=== PATIENT | female | born 2000 | race Hispanic/Latino ===

== ENCOUNTER 2022-01-26 14:15 | Emergency (ER) | payer OTHER ==
--- OUTSIDE RECORDS SUMMARY | 2022-01-26 14:19 | XMS REPORT | Continuity of Care Document ---
:2000 Author Organization [facility] t Address [address] [place] [address] Care Team Providers Name Role Phone Emerson Rubio Primary Care Physician [phone] Problems This patient has no known problems. Allergies, Adverse Reactions, Alerts Allergy Allergy Status Severity Reaction(s) Onset Inactive Treating Comm ents Source Name Type Date Date Clinician Mesna - Propensi Active Intraven ty to 7-11 ous adverse 00:00: reaction 00 to drug Medications Ordered Filled Start Stop Current Ordering Indication Dosage Frequency Signature Comments Components Source Medication Medication Date Date Medication? Clinician (SIG) Name Name CETIRIZINE No HYDROCHLORI 8-23 DE 10 MG 00:00: TABS 00 INHALE 1 TO 0 No 2 PUFFS BY 8-12 MOUTH EVERY 00:00: 4 TO 6 00 HOURS NEEDED DIRECTED TAKE 1 2021-0 No 10 TABLET BY 7-23 MOUTH EVERY 00:00: DAY 00 TAKE 1 2021-0 No 20 CAPSULE BY 7-18 MOUTH EVERY 00:00: DAY IN THE 00 MORNING Dose 2021-0 No Unknown 7-14 00:00: 00 &lt 2021-0 No 7-14 00:00: 00 TAKE 1 2021-0 No 20 TABLET BY 7-14 MOUTH THREE 00:00: TIMES A DAY 00 NEEDED FOR PAIN Dose 2021-0 No Unknown 7-14 00:00: 00 &lt 2021-0 No 7-14 00:00: 00 TAKE 1 2021-0 No 20 TABLET BY 7-14 MOUTH THREE 00:00: TIMES A DAY 00 NEEDED FOR PAIN TAKE 1 2021-0 No 20 TABLET BY 7-11 MOUTH THREE 00:00: TIMES A DAY 00 NEEDED FOR PAIN &lt 2021-0 No 7-11 00:00: 00 TAKE 1 2022-0 No 20 CAPSULE BY 7-11 MOUTH EVERY 00:00: DAY IN THE 00 MORNING TAKE 1 2022-0 No 10 TABLET BY 7-11 MOUTH EVERY 00:00: DAY 00 TAKE 1 2022-0 No 10 TABLET BY 7-11 MOUTH EVERY 00:00: DAY 00 Dose 2022-0 No Unknown 7 00:00: 00 TAKE 1 2022-0 No 20 CAPSULE BY 7-11 MOUTH EVERY 00:00: DAY IN THE 00 MORNING TAKE 1 2022-0 No 20 TABLET BY 7-11 MOUTH THREE 00:00: TIMES A DAY 00 NEEDED FOR PAIN &lt 2022-0 No 7-11 00:00: 00 TAKE 1 2022-0 No 20 CAPSULE BY 7-11 MOUTH EVERY 00:00: DAY IN THE 00 MORNING TAKE 1 2-0 No 10 TABLET BY 7-11 MOUTH EVERY 00:00: DAY 00 TAKE 1 2-0 No 10 TABLET BY 7-11 MOUTH EVERY 00:00: DAY 00 Dose 2022-0 No Unknown 7-11 00:00: 00 TAKE 1 2-0 No 20 CAPSULE BY 7-11 MOUTH EVERY 00:00: DAY IN THE 00 MORNING &lt 2022-0 No 6-21 00:00: 00 &lt 2022-0 No 6-21 00:00: 00 Dose 2022-0 No Unknown 4-12 00:00: 00 Dose 2022-0 No Unknown 4-12 00:00: 00 Dose 2022-0 No Unknown 4-12 00:00: 00 Dose 2022-0 No Unknown 4-12 00:00: 00 hydroxyzine 2022-0 No 1mg HCl 25 mg 4-11 tablet 00:00: 00 Dose 2022-0 No Unknown 4-11 00:00: 00 Dose 2022-0 No Unknown 4-11 00:00: 00 Dose 2022-0 No Unknown 4-11 00:00: 00 Dose 2022-0 No Unknown 4-11 00:00: 00 Dose 2022-0 No Unknown 4-11 00:00: 00 hydroxyzine 2022-0 No 1mg HCl 25 mg 4-11 tablet 00:00: 00 Dose 2022-0 No Unknown 4-11 00:00: 00 Dose 2022-0 No Unknown 4-11 00:00: 00 Dose 2022-0 No Unknown 4-11 00:00: 00 Dose 2022-0 No Unknown 4-11 00:00: 00 Dose 2022-0 No Unknown 4-11 00:00: 00 cetirizine 2022-0 No 1mg 10 mg 4-08 capsule 00:00: 00 cetirizine 2022-0 No 1mg 10 mg 4-08 capsule 00:00: 00 Dose 2022-0 No Unknown 3-10 00:00: 00 Dose 2022-0 No Unknown 3-10 00:00: 00 Dose 2022-0 No Unknown 3-10 00:00: 00 Dose 2022-0 No Unknown 3-10 00:00: 00 Dose 2022-0 No Unknown 3-09 00:00: 00 Dose 2022-0 No Unknown 3-09 00:00: 00 Dose 2022-0 No Unknown 3-09 00:00: 00 Dose 2022-0 No Unknown 3-09 00:00: 00 Dose 2022-0 No Unknown 3-09 00:00: 00 Dose 2022-0 No Unknown 3-09 00:00: 00 Dose 2022-0 No Unknown 3-09 00:00: 00 Dose 2022-0 No Unknown 3-09 00:00: 00 Dose 2022-0 No Unknown 3-09 00:00: 00 dicyclomine 2-0 No 1mg 20 mg 3-09 tablet 00:00: 00 Dose 2022-0 No Unknown 3-09 00:00: 00 Dose 2022-0 No Unknown 3-09 00:00: 00 Dose 2022-0 No Unknown 3-09 00:00: 00 Dose 2022-0 No Unknown 3-09 00:00: 00 Dose 2022-0 No Unknown 3-09 00:00: 00 Dose 2022-0 No Unknown 3-09 00:00: 00 Dose 2022-0 No Unknown 3-09 00:00: 00 Dose 2022-0 No Unknown 3-09 00:00: 00 Dose 2022-0 No Unknown 3-09 00:00: 00 Dose 2022-0 No Unknown 3-09 00:00: 00 Dose 2022-0 No Unknown 3-09 00:00: 00 Dose 2022-0 No Unknown 3-09 00:00: 00 Dose 2022-0 No Unknown 3-09 00:00: 00 Dose 2022-0 No Unknown 3-09 00:00: 00 Dose 2022-0 No Unknown 3-09 00:00: 00 Dose 2022-0 No Unknown 3-09 00:00: 00 Dose 2022-0 No Unknown 3-09 00:00: 00 Dose 2022-0 No Unknown 3-09 00:00: 00 Dose 2022-0 No Unknown 3-09 00:00: 00 Dose 2022-0 No Unknown 3-09 00:00: 00 Dose 2022-0 No Unknown 3-09 00:00: 00 Dose 2022-0 No Unknown 3-09 00:00: 00 Dose 2022-0 No Unknown 3-09 00:00: 00 Dose 2022-0 No Unknown 3-09 00:00: 00 Dose 2022-0 No Unknown 3-09 00:00: 00 Dose 2022-0 No Unknown 3-09 00:00: 00 Dose 2022-0 No Unknown 3-09 00:00: 00 Dose 2022-0 No Unknown 3-09 00:00: 00 Dose 2022-0 No Unknown 3-09 00:00: 00 Dose 2022-0 No Unknown 3-09 00:00: 00 Dose 2022-0 No Unknown 3-09 00:00: 00 Dose 2022-0 No Unknown 3-09 00:00: 00 Dose 2022-0 No Unknown 3-09 00:00: 00 Dose 2022-0 No Unknown 3-09 00:00: 00 Dose 2022-0 No Unknown 3-09 00:00: 00 Dose 2022-0 No Unknown 3-09 00:00: 00 Dose 2022-0 No Unknown 3-09 00:00: 00 Dose 2022-0 No Unknown 3-09 00:00: 00 Dose 2022-0 No Unknown 3-09 00:00: 00 Dose 2022-0 No Unknown 3-09 00:00: 00 Dose 2022-0 No Unknown 3-09 00:00: 00 Dose 2022-0 No Unknown 3-09 00:00: 00 Dose 2022-0 No Unknown 3-09 00:00: 00 Dose 2022-0 No Unknown 3-09 00:00: 00 Dose 2022-0 No Unknown 3-09 00:00: 00 Dose 2022-0 No Unknown 3-09 00:00: 00 Dose 2022-0 No Unknown 3-09 00:00: 00 Dose 2022-0 No Unknown 3-09 00:00: 00 Dose 2022-0 No Unknown 3-09 00:00: 00 Dose 2022-0 No Unknown 3-09 00:00: 00 Dose 2022-0 No Unknown 3-09 00:00: 00 Dose 2022-0 No Unknown 3-09 00:00: 00 Dose 2022-0 No Unknown 3-09 00:00: 00 Dose 2022-0 No Unknown 3-09 00:00: 00 Dose 2022-0 No Unknown 3-09 00:00: 00 Dose 2022-0 No Unknown 3-09 00:00: 00 Dose 2022-0 No Unknown 3-09 00:00: 00 Dose 2022-0 No Unknown 3-09 00:00: 00 Dose 2022-0 No Unknown 3-09 00:00: 00 Dose 2022-0 No Unknown 3-09 00:00: 00 Dose 2022-0 No Unknown 3-09 00:00: 00 Dose 2022-0 No Unknown 3-09 00:00: 00 Dose 2022-0 No Unknown 3-09 00:00: 00 Dose 2022-0 No Unknown 3-09 00:00: 00 Dose 2022-0 No Unknown 3-09 00:00: 00 Dose 2022-0 No Unknown 3-09 00:00: 00 Dose 2022-0 No Unknown 3-09 00:00: 00 Dose 2022-0 No Unknown 3-09 00:00: 00 Dose 2022-0 No Unknown 3-09 00:00: 00 Dose 2022-0 No Unknown 3-09 00:00: 00 Dose 2022-0 No Unknown 3-09 00:00: 00 Dose 2022-0 No Unknown 3-09 00:00: 00 Dose 2022-0 No Unknown 3-09 00:00: 00 Dose 2022-0 No Unknown 3-09 00:00: 00 Dose 2022-0 No Unknown 3-09 00:00: 00 Dose 2022-0 No Unknown 3-09 00:00: 00 Dose 2022-0 No Unknown 3-09 00:00: 00 Dose 2022-0 No Unknown 3-09 00:00: 00 Dose 2022-0 No Unknown 3-09 00:00: 00 Dose 2022-0 No Unknown 3-09 00:00: 00 Dose 2022-0 No Unknown 3-09 00:00: 00 Dose 2022-0 No Unknown 3-09 00:00: 00 Dose 2022-0 No Unknown 3-09 00:00: 00 Dose 2022-0 No Unknown 3-09 00:00: 00 Dose 2022-0 No Unknown 3-09 00:00: 00 Dose 2022-0 No Unknown 3-09 00:00: 00 Dose 2022-0 No Unknown 3-09 00:00: 00 Dose 2022-0 No Unknown 3-09 00:00: 00 Dose 2022-0 No Unknown 3-09 00:00: 00 Dose 2022-0 No Unknown 3-09 00:00: 00 Dose 2022-0 No Unknown 3-09 00:00: 00 Dose 2022-0 No Unknown 3-09 00:00: 00 Dose 2022-0 No Unknown 3-09 00:00: 00 Dose 2022-0 No Unknown 3-09 00:00: 00 Dose 2022-0 No Unknown 3-09 00:00: 00 Dose 2022-0 No Unknown 3-09 00:00: 00 Dose 2022-0 No Unknown 3-09 00:00: 00 Dose 2022-0 No Unknown 3-09 00:00: 00 Dose 2022-0 No Unknown 3-09 00:00: 00 Dose 2022-0 No Unknown 3-09 00:00: 00 Dose 2022-0 No Unknown 3-09 00:00: 00 Dose 2022-0 No Unknown 3-09 00:00: 00 Dose 2022-0 No Unknown 3-09 00:00: 00 Dose 2022-0 No Unknown 3-09 00:00: 00 Dose 2022-0 No Unknown 3-09 00:00: 00 Dose 2022-0 No Unknown 3-09 00:00: 00 Dose 2022-0 No Unknown 3-09 00:00: 00 Dose 2022-0 No Unknown 3-09 00:00: 00 Dose 2022-0 No Unknown 3-09 00:00: 00 Dose 2022-0 No Unknown 3-09 00:00: 00 Dose 2022-0 No Unknown 3-09 00:00: 00 Dose 2022-0 No Unknown 3-09 00:00: 00 Dose 2022-0 No Unknown 3-09 00:00: 00 Dose 2022-0 No Unknown 3-09 00:00: 00 Dose 2022-0 No Unknown 3-09 00:00: 00 Dose 2022-0 No Unknown 3-09 00:00: 00 Dose 2022-0 No Unknown 3-09 00:00: 00 Dose 2022-0 No Unknown 3-09 00:00: 00 Dose 2022-0 No Unknown 3-09 00:00: 00 Dose 2022-0 No Unknown 3-09 00:00: 00 Dose 2022-0 No Unknown 3-09 00:00: 00 Dose 2022-0 No Unknown 3-09 00:00: 00 Dose 2022-0 No Unknown 3-09 00:00: 00 Dose 2022-0 No Unknown 3-09 00:00: 00 Dose 2022-0 No Unknown 3-09 00:00: 00 Dose 2-0 No Unknown 3-09 00:00: 00 Dose 2-0 No Unknown 3-09 00:00: 00 dicyclomine 2-0 No 1mg 20 mg 3-09 tablet 00:00: 00 Lexapro 10 2-0 No 1mg mg tablet 2-21 00:00: 00 Dose 2-0 No Unknown 2-21 00:00: 00 Lexapro 10 2-0 No 1mg mg tablet 2-21 00:00: 00 Dose 2-0 No Unknown 2-21 00:00: 00 Flonase 2-0 No 2mcg/ac Allergy 2-07 tuation Relief 50 00:00: mcg/actuati 00 on nasal spray,suspe nsion cetirizine 2021-0 No 1mg 10 mg 2-07 capsule 00:00: 00 cetirizine 2-0 No 1mg 10 mg 2-07 capsule 00:00: 00 Flonase 2022-0 No 2mcg/ac Allergy 2-07 tuation Relief 50 00:00: mcg/actuati 00 on nasal spray,suspe nsion cetirizine 2-0 No 1mg 10 mg 2-07 capsule 00:00: 00 cetirizine 2022-0 No 1mg 10 mg 2-07 capsule 00:00: 00 Immunizations Ordered Immunization Filled Immunization Date Status Commen ts Source Name Name Pfizer COVID-19 Vaccine 2021-03-23 Completed 00:00:00 Pfizer COVID-19 Vaccine 2021-03-23 Completed 00:00:00 Vital Signs Vital Name Observation Time Observation Value Comments Source BP Systolic 2022-01-24 15:50:00 105 mm[Hg] BP Diastolic 2022-01-24 15:50:00 74 mm[Hg] Weight Measured 2022-01-24 15:50:00 244.60 pounds Height Measured 2022-01-24 15:50:00 69.00 inches Body Temperature 2022-01-24 15:50:00 Heart Rate 2022-01-24 15:50:00 85.00 /min Respiratory Rate 2022-01-24 15:50:00 18.00 /min BP Systolic 2021-09-22 17:24:00 118 mm[Hg] BP Diastolic 2021-09-22 17:24:00 80 mm[Hg] Weight Measured 2021-09-22 17:24:00 249.20 pounds Height Measured 2021-09-22 17:24:00 69.00 inches Body Temperature 2021-09-22 17:24:00 98.40 degrees Heart Rate 2021-09-22 17:24:00 77.00 /min Respiratory Rate 2021-09-22 17:24:00 19.00 /min BP Systolic 2021-07-04 13:39:00 117 mm[Hg] BP Diastolic 2021-07-04 13:39:00 80 mm[Hg] Weight Measured 2021-07-04 13:39:00 253.00 pounds Height Measured 2021-07-04 13:39:00 69.00 inches Body Temperature 2021-07-04 13:39:00 98.00 degrees Heart Rate 2021-07-04 13:39:00 75.00 /min Respiratory Rate 2021-07-04 13:39:00 16.00 /min BP Systolic 2021-06-20 14:31:00 125 mm[Hg] BP Diastolic 2021-06-20 14:31:00 79 mm[Hg] Weight Measured 2021-06-20 14:31:00 251.60 pounds Height Measured 2021-06-20 14:31:00 69.00 inches Body Temperature 2021-06-20 14:31:00 98.50 degrees Heart Rate 2021-06-20 14:31:00 101.00 /min Respiratory Rate 2021-06-20 14:31:00 21.00 /min BP Systolic 2021-05-18 15:33:00 113 mm[Hg] BP Diastolic 2021-05-18 15:33:00 72 mm[Hg] Weight Measured 2021-05-18 15:33:00 251.80 pounds Height Measured 2021-05-18 15:33:00 69.00 inches Body Temperature 2021-05-18 15:33:00 97.40 degrees Heart Rate 2021-05-18 15:33:00 91.00 /min Respiratory Rate 2021-05-18 15:33:00 BP Systolic 2021-05-02 17:23:00 134 mm[Hg] BP Diastolic 2021-05-02 17:23:00 86 mm[Hg] Weight Measured 2021-05-02 17:23:00 251.20 pounds Height Measured 2021-05-02 17:23:00 69.00 inches Body Temperature 2021-05-02 17:23:00 98.50 degrees Heart Rate 2021-05-02 17:23:00 104.00 /min Respiratory Rate 2021-05-02 17:23:00 BP Systolic 2021-04-18 17:37:00 BP Diastolic 2021-04-18 17:37:00 Weight Measured 2021-04-18 17:37:00 256.00 pounds Height Measured 2021-04-18 17:37:00 Body Temperature 2021-04-18 17:37:00 Heart Rate 2021-04-18 17:37:00 Respiratory Rate 2021-04-18 17:37:00 BP Systolic 2021-03-23 13:34:00 113 mm[Hg] BP Diastolic 2021-03-23 13:34:00 77 mm[Hg] Weight Measured 2021-03-23 13:34:00 255.60 pounds Height Measured 2021-03-23 13:34:00 69.00 inches Body Temperature 2021-03-23 13:34:00 98.40 degrees Heart Rate 2021-03-23 13:34:00 88.00 /min Respiratory Rate 2021-03-23 13:34:00 Procedures This patient has no known procedures. Plan of Care Planned Activity Planned Date Details Comments Source Goal Plan of Care Note [code = 67728-5] Goal Plan of Care Note [code = 53815-0] Goal Plan of Care Note [code = 94525-4] Goal Plan of Care Note [code = 62636-6] Goal Plan of Care Note [code = 71041-1] Goal Plan of Care Note [code = 33531-0] Goal Plan of Care Note [code = 28651-9] Goal Plan of Care Note [code = 09221-3] Goal Plan of Care Note [code = 56793-1] Goal Plan of Care Note [code = 03852-5] Goal Plan of Care Note [code = 41030-4] Goal Plan of Care Note [code = 26641-9] Goal Plan of Care Note [code = 17458-3] Goal Plan of Care Note [code = 79229-7] Goal Plan of Care Note [code = 18716-8] Goal Plan of Care Note [code = 67925-8] Goal Plan of Care Note [code = 64375-8] Goal Plan of Care Note [code = 96363-5] Goal Plan of Care Note [code = 73024-6] Goal Plan of Care Note [code = 96985-9] Goal Plan of Care Note [code = 10675-9] Goal Plan of Care Note [code = 29228-7] Goal Plan of Care Note [code = 01692-9] Goal Plan of Care Note [code = 50947-0] Goal Plan of Care Note [code = 20033-5] Goal Plan of Care Note [code = 12807-2] Goal Plan of Care Note [code = 47913-3] Goal Plan of Care Note [code = 07297-3] Goal Plan of Care Note [code = 54277-2] Goal Plan of Care Note [code = 73682-0] Goal Plan of Care Note [code = 62650-7] Goal Plan of Care Note [code = 54475-7] Goal Plan of Care Note [code = 60543-7] Goal Plan of Care Note [code = 40931-8] Goal Plan of Care Note [code = 75456-2] Goal Plan of Care Note [code = 61845-7] Goal Plan of Care Note [code = 74668-6] Goal Plan of Care Note [code = 05119-1] Goal Plan of Care Note [code = 44933-1] Goal Plan of Care Note [code = 46894-7] Encounters Start End Encounter Admission Attending Care Care Encounter Source Date/Time Date/Time Type Type Clinicians Facility Department ID 2022-01-24 2022-01-24 Outpatient [facility] Michael 15:49:42 15:49:42 [id number] F Yandel 2022-01-24 2022-01-24 Outpatient [id number] 00:00:00 00:00:00 Visit [id number] 2021-12-27 2021-12-27 Outpatient [facility] Michael 14:01:33 14:01:33 [id number] F Yandel 2021-12-08 2021-12-08 Outpatient [facility] Michael 11:58:18 11:58:18 [id number] F Yandel 2021-09-22 2021-09-22 Outpatient [id number] 00:00:00 00:00:00 Visit [id number] Results Test Description Test Time Test Comments Results Result Comments Source CHLAMYDIA, NAAT, URINE 2021-07-05 17:22:40 Test Item Value Reference Range Interpretation Comme nts CHLAMYDIA, NAAT NEGATIVE NEGATIVE IMPORTA NT NOTICE: SEE ANNOUNCEMENT AT (test code = [email or web address] Note: 16133) Assay methodolo gy is nucleic acid amplification by transcriptio n mediated amplification (TMA) utilizing the A ptima Combo 2 Assay. GONORRHEA, NAAT, [id number] 17:22:40 Test Item Value Reference Range Interpretation Comments GONORRHEA, NAAT NEGATIVE NEGATIVE IMPORTA NT NOTICE: SEE (test code = [place] [address]) [email or web address] [email or web address] Note: Assay methodology is nucleic acid amplification b y railway signal operator m ediated amplification ( TMA) utilizing the A ptima Combo 2 Assay. UNLESS OTHERWISE INDICATED, ALL TESTING PERFORMED [facility]. [address] [facility], [place] [id number] [place] [address] DEVAN DIRECTOR: MATTHEW JHAVERI M.D. DARWIN NUMBER [id number] CAP ACCREDITATION N O. [id number] HIV 1/2 4TH GEN, RFLX [id number] 03:11:31 Test Item Value Reference Range Interpretation Comments HIV 1/2 4TH GEN, RFLX CONF (test NON-REACTIVE NON-REACTIVE code = 3514) HEPATITIS PANEL, [id number] 03:11:31 Test Item Value Reference Range Interpretation Comments HEPATITIS A IgM (test NON-REACTIVE NON-REACTIVE code = 74297) HEPATITIS B CORE IgM NON-REACTIVE NON-REACTIVE (test code = 4644) HEPATITIS B SURF AG NON-REACTIVE NON-REACTIVE (test code = 2739) HEPATITIS C ANTIBODY NON-REACTIVE NON-REACTIVE (test code = 4675) INTERPRETATION (NOTE) Hepatitis A HEPATITIS A: (test code sero logy shows no = 2552) evidence of acu te hepatitis A. INTERPRETATION (NOTE) Hepatitis B HEPATITIS B: (test code sero logy shows no = 73803) evidence of acu te hepatitis B and no indication of exposure to hepatitis B vir us in the previous domitila eight months. INTERPRETATION (NOTE) Hepatitis C HEPATITIS C: (test code sero logy shows no = 21677) evidence of exposure to hepatitisC viru s at this time. I t can take up to 12 months after exposure tothe hepatitis C vir us for antibodies to become detectab le in the blood in certain patient s. HIV AB/AG COMBO RFLX [id number] 00:00:00 Test Item Value Reference Range Interpretation Comments HIV 1/2 4TH GEN, RFLX CONF (test NON-REACTIVE code = 3514) ACUTE HEPATITIS [id number] 00:00:00 Test Item Value Reference Range Interpretation Comments HEPATITIS A IgM (test code = NON-REACTIVE 40840) HEPATITIS B CORE IgM (test code NON-REACTIVE = 4644) HEPATITIS B SURF AG (test code = NON-REACTIVE 2739) HEPATITIS C ANTIBODY (test code NON-REACTIVE = 4675) INTERPRETATION HEPATITIS A: (NOTE) (test code = 2552) INTERPRETATION HEPATITIS B: (NOTE) (test code = 42637) INTERPRETATION HEPATITIS C: (NOTE) (test code = 68721) CHLAMYDIA, AMPLIFIED, [id number] 00:00:00 Test Item Value Reference Range Interpretation Comments CHLAMYDIA, NAAT (test code = 11691) NEGATIVE GC, AMPLIFIED, [id number] 00:00:00 Test Item Value Reference Range Interpretation Comments GONORRHEA, NAAT (test code = 71844) NEGATIVE HIV AB/AG COMBO RFLX [id number] 00:00:00 Test Item Value Reference Range Interpretation Comments HIV 1/2 4TH GEN, RFLX CONF (test NON-REACTIVE code = 3514) HIV AB/AG COMBO RFLX [id number] 00:00:00 Test Item Value Reference Range Interpretation Comments HIV 1/2 4TH GEN, RFLX CONF (test NON-REACTIVE code = 3514) ACUTE HEPATITIS [id number] 00:00:00 Test Item Value Reference Range Interpretation Comments HEPATITIS A IgM (test code = NON-REACTIVE 11805) HEPATITIS B CORE IgM (test code NON-REACTIVE = 4644) HEPATITIS B SURF AG (test code = NON-REACTIVE 2739) HEPATITIS C ANTIBODY (test code NON-REACTIVE = 4675) INTERPRETATION HEPATITIS A: (NOTE) (test code = 2552) INTERPRETATION HEPATITIS B: (NOTE) (test code = 13936) INTERPRETATION HEPATITIS C: (NOTE) (test code = 67757) ACUTE HEPATITIS [id number] 00:00:00 Test Item Value Reference Range Interpretation Comments HEPATITIS A IgM (test code = NON-REACTIVE 74623) HEPATITIS B CORE IgM (test code NON-REACTIVE = 4644) HEPATITIS B SURF AG (test code = NON-REACTIVE 2739) HEPATITIS C ANTIBODY (test code NON-REACTIVE = 4675) INTERPRETATION HEPATITIS A: (NOTE) (test code = 2552) INTERPRETATION HEPATITIS B: (NOTE) (test code = 68855) INTERPRETATION HEPATITIS C: (NOTE) (test code = 61427) CHLAMYDIA, AMPLIFIED, [id number] 00:00:00 Test Item Value Reference Range Interpretation Comments CHLAMYDIA, NAAT (test code = 31343) NEGATIVE CHLAMYDIA, AMPLIFIED, [id number] 00:00:00 Test Item Value Reference Range Interpretation Comments CHLAMYDIA, NAAT (test code = 64506) NEGATIVE GC, AMPLIFIED, [id number] 00:00:00 Test Item Value Reference Range Interpretation Comments GONORRHEA, NAAT (test code = 82839) NEGATIVE GC, AMPLIFIED, [id number] 00:00:00 Test Item Value Reference Range Interpretation Comments GONORRHEA, NAAT (test code = 45976) NEGATIVE LIPID [id number] 03:46:49 Test Item Value Reference Range Interpretation Comments CHOLESTEROL (test 162 MG/DL <200 code = 2210) TRIGLYCERIDES (test 166 MG/DL <150 H code = 2232) HDL CHOLESTEROL (test 47 MG/DL >39 code = 2220) CALC LDL CHOL (test 89 MG/DL <100 NOTE: C ALCULATED LDL code = 2237) IS BASED ON TAMIKA-LEE METHOD WHICHINCLUDES ADJUSTABLE TRIGLYCERIDE:VL DL CHOLESTEROL RAT IO.THIS FACTOR VARIES B Y MEASURED TRIGLY CERIDE AND NON-HDLCHOL ESTEROL CONCENTRATIONS WITH INCREASED CALCU LATED LDL SEENIN HIGH ER TRIGLYCERIDE OR LOWER NON-HDL SPECIME NS. FOR MOREINFORMATION , SEE CLIENT ANNOUNCE MENT AT [email or web address] [email or web address] RATIO LDL/HDL 1.89 RATIO <3.22 (test code = 2238) COMPREHENSIVE METABOLIC [id number] 03:46:49 Test Item Value Reference Range Interpretation Comments GLUCOSE (test code = 94 MG/DL 70-99 2216) BUN (test code = 8 MG/DL 6-2207) CREATININE (test 0.63 MG/DL 0.50-1.10 code = 2214) eGFR (2020 CKD-EPI) 131 >60 (test code = 43228) ML/MIN/1.73 CALC BUN/CREAT (test 13 RATIO 6-28 code = 2235) SODIUM (test code = 141 MEQ/L 114-708 4419) POTASSIUM (test code 4.5 MEQ/L 3.5-5.4 = 2227) CHLORIDE (test code 103 MEQ/L 95-107 = 2214) CARBON DIOXIDE (test 25 MEQ/L 19-31 code = 220) CALCIUM (test code = 10.1 MG/DL 8.5-10.5 2208) PROTEIN, TOTAL (test 7.5 G/DL 6.1-8.3 code = 222) ALBUMIN (test code = 4.8 G/DL 3.5-5.2 2200) CALC GLOBULIN (test 2.7 G/DL 2.1-3.7 code = 2240) CALC A/G RATIO (test 1.8 RATIO 1.0-2.6 code = 2234) BILIRUBIN, TOTAL <0.2 MG/DL See_Comment [Automated message] (test code = 2207) The syste m which generated this result transmitted ref erence range: <=1.2. T he reference range was not used to int erpret this result as normal/abnormal . ALKALINE PHOSPHATASE 95 U/L 41-120 (test code = 220) AST (test code = 22 U/L 9-40 8) ALT (test code = 27 U/L 5-40 UNLESS OTH ERWISE 2219) INDICATED, ALL TESTING PERFORM [facility], [facility]. [address] [place] [id number] [place] [address] DIRECTOR: MATTHEW JHAVERI M.D. CLIA NUMBER [id number] CAP ACCREDITATION N O. [id number] CBC W/AUTO DIFF WITH [id number] 03:43:18 Test Item Value Reference Range Interpretation Comments WBC (test code = 7.8 K/UL 3.5-11.0 1001) RBC (test code = 4.60 M/UL 3.80-5.40 1002) HEMOGLOBIN (test code 13.8 G/DL 11.5-15.5 = 1003) HEMATOCRIT (test code 42.2 % 34.0-45.0 = 1004) MCV (test code = 91.7 fL 80.0-99.0 1005) MCH (test code = 30.0 PG 25.0-33.0 1006) MCHC (test code = 32.7 G/DL 31.0-36.0 1007) RDW (test code = 12.9 % 11.5-15.0 1038) NEUTROPHILS (test 66.8 % code = 1008) LYMPHOCYTES (test 26.2 % code = 1010) MONOCYTES (test code 4.7 % = 1011) EOSINOPHILS (test 1.1 % code = 1012) BASOPHILS (test code 0.9 % = 1013) IMMATURE GRANULOCYTES 0.3 % (test code = 1036) NUCLEATED RBCS (test 0.0 /100 WBC'S See_Comment [Aut omated code = 1065) message] The sy stem which generated this result transmitted reference range : 0.0. The refere nce range was not u sed to interpret th is result as normal/abnormal . PLATELET COUNT (test 273 K/UL 130-400 code = 1015) ABSOLUTE NEUTROPHILS 5.23 K/UL 1.50-7.50 (test code = 1066) ABSOLUTE LYMPHOCYTES 2.05 K/UL 1.00-4.00 (test code = 1067) ABSOLUTE MONOCYTES 0.37 K/UL 0.20-1.00 (test code = 1068) ABSOLUTE EOSINOPHILS 0.09 K/UL 0.00-0.50 (test code = 1040) ABSOLUTE BASOPHILS 0.07 K/UL 0.00-0.20 (test code = 1069) ABS IMMATURE 0.02 K/UL 0.00-0.10 GRANULOCYTES (test code = 1020) ABS NUCLEATED RBCS 0.00 K/UL 0.00-0.11 (test code = 96151) CBC W/AUTO [id number] 00:00:00 Test Item Value Reference Range Interpretation Comments WBC (test code = 1001) 7.8 K/UL RBC (test code = 1002) 4.60 M/UL HEMOGLOBIN (test code = 1003) 13.8 G/DL HEMATOCRIT (test code = 1004) 42.2 % MCV (test code = 1005) 91.7 fL MCH (test code = 1006) 30.0 PG MCHC (test code = 1007) 32.7 G/DL RDW (test code = 1038) 12.9 % NEUTROPHILS (test code = 1008) 66.8 % LYMPHOCYTES (test code = 1010) 26.2 % MONOCYTES (test code = 1011) 4.7 % EOSINOPHILS (test code = 1012) 1.1 % BASOPHILS (test code = 1013) 0.9 % IMMATURE GRANULOCYTES (test 0.3 % code = 1036) NUCLEATED RBCS (test code = 0.0 /100WBC'S 1065) PLATELET COUNT (test code = 273 K/UL 1015) ABSOLUTE NEUTROPHILS (test code 5.23 K/UL = 1066) ABSOLUTE LYMPHOCYTES (test code 2.05 K/UL = 1067) ABSOLUTE MONOCYTES (test code = 0.37 K/UL 1068) ABSOLUTE EOSINOPHILS (test code 0.09 K/UL = 1040) ABSOLUTE BASOPHILS (test code = 0.07 K/UL 1069) ABS IMMATURE GRANULOCYTES (test 0.02 K/UL code = 1020) ABS NUCLEATED RBCS (test code = 0.00 K/UL 70730) CBC W/AUTO [id number] 00:00:00 Test Item Value Reference Range Interpretation Comments WBC (test code = 1001) 7.8 K/UL RBC (test code = 1002) 4.60 M/UL HEMOGLOBIN (test code = 1003) 13.8 G/DL HEMATOCRIT (test code = 1004) 42.2 % MCV (test code = 1005) 91.7 fL MCH (test code = 1006) 30.0 PG MCHC (test code = 1007) 32.7 G/DL RDW (test code = 1038) 12.9 % NEUTROPHILS (test code = 1008) 66.8 % LYMPHOCYTES (test code = 1010) 26.2 % MONOCYTES (test code = 1011) 4.7 % EOSINOPHILS (test code = 1012) 1.1 % BASOPHILS (test code = 1013) 0.9 % IMMATURE GRANULOCYTES (test 0.3 % code = 1036) NUCLEATED RBCS (test code = 0.0 /100WBC'S 1065) PLATELET COUNT (test code = 273 K/UL 1015) ABSOLUTE NEUTROPHILS (test code 5.23 K/UL = 1066) ABSOLUTE LYMPHOCYTES (test code 2.05 K/UL = 1067) ABSOLUTE MONOCYTES (test code = 0.37 K/UL 1068) ABSOLUTE EOSINOPHILS (test code 0.09 K/UL = 1040) ABSOLUTE BASOPHILS (test code = 0.07 K/UL 1069) ABS IMMATURE GRANULOCYTES (test 0.02 K/UL code = 1020) ABS NUCLEATED RBCS (test code = 0.00 K/UL 37848) LIPID [id number] 00:00:00 Test Item Value Reference Range Interpretation Comments CHOLESTEROL (test code = 2210) 162 MG/DL TRIGLYCERIDES (test code = 2232) 166 MG/DL HDL CHOLESTEROL (test code = 2220) 47 MG/DL CALC LDL CHOL (test code = 2237) 89 MG/DL RISK RATIO LDL/HDL (test code = 1.89 RATIO 2238) COMPREHENSIVE METABOLIC [id number] 00:00:00 Test Item Value Reference Range Interpretation Comments GLUCOSE (test code = 2217) 94 MG/DL BUN (test code = 2208) 8 MG/DL CREATININE (test code = 2214) 0.63 MG/DL eGFR (2020 CKD-EPI) (test 131 ML/MIN/1.73 code = 45949) CALC BUN/CREAT (test code = 13 RATIO 2235) SODIUM (test code = 2231) 141 MEQ/L POTASSIUM (test code = 2228) 4.5 MEQ/L CHLORIDE (test code = 2215) 103 MEQ/L CARBON DIOXIDE (test code = 25 MEQ/L 2205) CALCIUM (test code = 2209) 10.1 MG/DL PROTEIN, TOTAL (test code = 7.5 G/DL 2228) ALBUMIN (test code = 220) 4.8 G/DL CALC GLOBULIN (test code = 2.7 G/DL 2239) CALC A/G RATIO (test code = 1.8 RATIO 2233) BILIRUBIN, TOTAL (test code = <0.2 MG/DL 2206) ALKALINE PHOSPHATASE (test 95 U/L code = 2204) AST (test code = 2218) 22 U/L ALT (test code = 2219) 27 U/L CBC W/AUTO [id number] 00:00:00 Test Item Value Reference Range Interpretation Comments WBC (test code = 1001) 7.8 K/UL RBC (test code = 1002) 4.60 M/UL HEMOGLOBIN (test code = 1003) 13.8 G/DL HEMATOCRIT (test code = 1004) 42.2 % MCV (test code = 1005) 91.7 fL MCH (test code = 1006) 30.0 PG MCHC (test code = 1007) 32.7 G/DL RDW (test code = 1038) 12.9 % NEUTROPHILS (test code = 1008) 66.8 % LYMPHOCYTES (test code = 1010) 26.2 % MONOCYTES (test code = 1011) 4.7 % EOSINOPHILS (test code = 1012) 1.1 % BASOPHILS (test code = 1013) 0.9 % IMMATURE GRANULOCYTES (test 0.3 % code = 1036) NUCLEATED RBCS (test code = 0.0 /100WBC'S 1065) PLATELET COUNT (test code = 273 K/UL 1015) ABSOLUTE NEUTROPHILS (test code 5.23 K/UL = 1066) ABSOLUTE LYMPHOCYTES (test code 2.05 K/UL = 1067) ABSOLUTE MONOCYTES (test code = 0.37 K/UL 1068) ABSOLUTE EOSINOPHILS (test code 0.09 K/UL = 1040) ABSOLUTE BASOPHILS (test code = 0.07 K/UL 1069) ABS IMMATURE GRANULOCYTES (test 0.02 K/UL code = 1020) ABS NUCLEATED RBCS (test code = 0.00 K/UL 56285) CBC W/AUTO [id number] 00:00:00 Test Item Value Reference Range Interpretation Comments WBC (test code = 1001) 7.8 K/UL RBC (test code = 1002) 4.60 M/UL HEMOGLOBIN (test code = 1003) 13.8 G/DL HEMATOCRIT (test code = 1004) 42.2 % MCV (test code = 1005) 91.7 fL MCH (test code = 1006) 30.0 PG MCHC (test code = 1007) 32.7 G/DL RDW (test code = 1038) 12.9 % NEUTROPHILS (test code = 1008) 66.8 % LYMPHOCYTES (test code = 1010) 26.2 % MONOCYTES (test code = 1011) 4.7 % EOSINOPHILS (test code = 1012) 1.1 % BASOPHILS (test code = 1013) 0.9 % IMMATURE GRANULOCYTES (test 0.3 % code = 1036) NUCLEATED RBCS (test code = 0.0 /100WBC'S 1065) PLATELET COUNT (test code = 273 K/UL 1015) ABSOLUTE NEUTROPHILS (test code 5.23 K/UL = 1066) ABSOLUTE LYMPHOCYTES (test code 2.05 K/UL = 1067) ABSOLUTE MONOCYTES (test code = 0.37 K/UL 1068) ABSOLUTE EOSINOPHILS (test code 0.09 K/UL = 1040) ABSOLUTE BASOPHILS (test code = 0.07 K/UL 1069) ABS IMMATURE GRANULOCYTES (test 0.02 K/UL code = 1020) ABS NUCLEATED RBCS (test code = 0.00 K/UL 09378) CBC W/AUTO [id number] 00:00:00 Test Item Value Reference Range Interpretation Comments WBC (test code = 1001) 7.8 K/UL RBC (test code = 1002) 4.60 M/UL HEMOGLOBIN (test code = 1003) 13.8 G/DL HEMATOCRIT (test code = 1004) 42.2 % MCV (test code = 1005) 91.7 fL MCH (test code = 1006) 30.0 PG MCHC (test code = 1007) 32.7 G/DL RDW (test code = 1038) 12.9 % NEUTROPHILS (test code = 1008) 66.8 % LYMPHOCYTES (test code = 1010) 26.2 % MONOCYTES (test code = 1011) 4.7 % EOSINOPHILS (test code = 1012) 1.1 % BASOPHILS (test code = 1013) 0.9 % IMMATURE GRANULOCYTES (test 0.3 % code = 1036) NUCLEATED RBCS (test code = 0.0 /100WBC'S 1065) PLATELET COUNT (test code = 273 K/UL 1015) ABSOLUTE NEUTROPHILS (test code 5.23 K/UL = 1066) ABSOLUTE LYMPHOCYTES (test code 2.05 K/UL = 1067) ABSOLUTE MONOCYTES (test code = 0.37 K/UL 1068) ABSOLUTE EOSINOPHILS (test code 0.09 K/UL = 1040) ABSOLUTE BASOPHILS (test code = 0.07 K/UL 1069) ABS IMMATURE GRANULOCYTES (test 0.02 K/UL code = 1020) ABS NUCLEATED RBCS (test code = 0.00 K/UL 12926) LIPID [id number] 00:00:00 Test Item Value Reference Range Interpretation Comments CHOLESTEROL (test code = 2210) 162 MG/DL TRIGLYCERIDES (test code = 2232) 166 MG/DL HDL CHOLESTEROL (test code = 2220) 47 MG/DL CALC LDL CHOL (test code = 2237) 89 MG/DL RISK RATIO LDL/HDL (test code = 1.89 RATIO 2238) LIPID [id number] 00:00:00 Test Item Value Reference Range Interpretation Comments CHOLESTEROL (test code = 2210) 162 MG/DL TRIGLYCERIDES (test code = 2232) 166 MG/DL HDL CHOLESTEROL (test code = 2220) 47 MG/DL CALC LDL CHOL (test code = 2237) 89 MG/DL RISK RATIO LDL/HDL (test code = 1.89 RATIO 2238) COMPREHENSIVE METABOLIC [id number] 00:00:00 Test Item Value Reference Range Interpretation Comments GLUCOSE (test code = 2217) 94 MG/DL BUN (test code = 2208) 8 MG/DL CREATININE (test code = 2214) 0.63 MG/DL eGFR (2020 CKD-EPI) (test 131 ML/MIN/1.73 code = 72918) CALC BUN/CREAT (test code = 13 RATIO 2235) SODIUM (test code = 2231) 141 MEQ/L POTASSIUM (test code = 2228) 4.5 MEQ/L CHLORIDE (test code = 2215) 103 MEQ/L CARBON DIOXIDE (test code = 25 MEQ/L 2206) CALCIUM (test code = 2209) 10.1 MG/DL PROTEIN, TOTAL (test code = 7.5 G/DL 222) ALBUMIN (test code = 2201) 4.8 G/DL CALC GLOBULIN (test code = 2.7 G/DL 2240) CALC A/G RATIO (test code = 1.8 RATIO 2234) BILIRUBIN, TOTAL (test code = <0.2 MG/DL 2206) ALKALINE PHOSPHATASE (test 95 U/L code = 2204) AST (test code = 2218) 22 U/L ALT (test code = 2219) 27 U/L COMPREHENSIVE METABOLIC [id number] 00:00:00 Test Item Value Reference Range Interpretation Comments GLUCOSE (test code = 2217) 94 MG/DL BUN (test code = 2208) 8 MG/DL CREATININE (test code = 2214) 0.63 MG/DL eGFR (2020 CKD-EPI) (test 131 ML/MIN/1.73 code = 04077) CALC BUN/CREAT (test code = 13 RATIO 2235) SODIUM (test code = 2231) 141 MEQ/L POTASSIUM (test code = 2228) 4.5 MEQ/L CHLORIDE (test code = 2215) 103 MEQ/L CARBON DIOXIDE (test code = 25 MEQ/L 2205) CALCIUM (test code = 2209) 10.1 MG/DL PROTEIN, TOTAL (test code = 7.5 G/DL 2229) ALBUMIN (test code = 2201) 4.8 G/DL CALC GLOBULIN (test code = 2.7 G/DL 2240) CALC A/G RATIO (test code = 1.8 RATIO 2234) BILIRUBIN, TOTAL (test code = <0.2 MG/DL 2206) ALKALINE PHOSPHATASE (test 95 U/L code = 2204) AST (test code = 2218) 22 U/L ALT (test code = 2219) 27 U/L CULTURE, [id number] 09:34:28SPECIMEN NUMBER: [id number] CULTURE, URINE SPECIMEN NUMBER: [id number] SPECIMEN COMMENT: URINE SOURCE: URINE REPORT STATUS: FINAL FINAL REPORT: 05/21/2021 >100,000 CFU/ML UROGENITAL EMILE PRESENT NO C OMMON PATHOGENS UNLESS OTHERWISE INDICATED, ALL TESTING PERFORMED [facility] [address] [place] [address] [employer]AK[employer]: MATTHEW JHAVERI M.D. [place] NUMBER [id number] [facility] [place]. [id number] CULTURE, [id number] 00:00:00 Test Item Value Reference Range Interpretation Comments CULTURE, URINE (test SPECIMEN NUMBER: code = [id number]) [id number] CULTURE, [id number] 00:00:00 Test Item Value Reference Range Interpretation Comments CULTURE, URINE (test SPECIMEN NUMBER: code = [id number]) [id number] CULTURE, [id number] 00:00:00 Test Item Value Reference Range Interpretation Comments CULTURE, URINE (test SPECIMEN NUMBER: code = [id number]) [id number]
--- NOTE | 2022-01-26 15:26 | RAD REPORT ---
EXAM DESCRIPTION: RAD - Chest Pa And Lat (2 Views) - 01/26/2022 3:19 pm CLINICAL HISTORY: CHEST PAIN COMPARISON: No comparisons FINDINGS: Lines: None. Lungs: No evidence of edema or pneumonia. Pleural: No significant pleural effusions or pneumothorax. Cardiac: The heart size is within normal limits. Mediastinum: Within normal limits. Bones: No acute fractures. Other: None IMPRESSION: No acute cardiopulmonary disease.
--- NOTE | 2022-01-26 17:11 | EDPHYS ---
Physician Documentation [facility] Name: Joan Wilson Age: 21 yrs Sex: Female : 2000 Arrival Date: 01/26/2022 Time: 14:19 Bed Treatment Private MD: ED Physician Jesus Alberto Bach HPI: 01/26 15:56 This 21 yrs old Female presents to ER via Ambulatory with complaints of Chest kb Pain, Back Pain. 15:56 The patient or guardian reports chest pain that is located primarily in the anterior kb chest wall, bilaterally. The pain radiates to Associated signs and symptoms: The patient has no apparent associated signs or symptoms. The chest pain is described as aching. Duration: The patient or guardian reports a single episode, that is still ongoing. Modifying factors: The symptoms are alleviated by nothing. the symptoms are aggravated by nothing. Severity of pain: At its worst the pain was mild in the emergency department the pain is unchanged. The patient has not experienced similar symptoms in the past. The patient has not recently seen a physician. Pt reports chest pain that radiates to the back for 5 days. No other symptoms. Historical: - Allergies: 14:30 No Known Allergies; kr3 - PMHx: 14:30 Asthma; ovarian cyst; Anxiety; Depressive disorder; kr3 14:33 Irritable bowel syndrome; kr3 - PSHx: 14:30 cyst removal; kr3 - Immunization history:: Adult Immunizations up to date. - Social history:: Smoking status: Patient denies any tobacco usage or history of. ROS: 15:53 Constitutional: Negative for fever, chills, and weight loss. kb 15:53 Cardiovascular: Positive for chest pain, Negative for edema, orthopnea, palpitations, paroxysmal nocturnal dyspnea. 15:53 Back: Positive for pain at rest. 15:53 All other systems are negative. Exam: 15:49 Constitutional: This is a well developed, well nourished patient who is awake, alert, kb and in no acute distress. Head/Face: Normocephalic, atraumatic. ENT: Moist Mucous membranes Cardiovascular: Regular rate and rhythm with a normal S1 and S2. No gallops, murmurs, or rubs. No pulse deficits. Respiratory: Respirations even and unlabored. No increased work of breathing. Talking in full sentences Abdomen/GI: Soft, non-tender. No distention Skin: Warm, dry with normal turgor. Normal color. MS/ Extremity: Pulses equal, no cyanosis. Neurovascular intact. Full, normal range of motion. Neuro: Awake and alert, GCS 15, oriented to person, place, time, and situation. Moves all extremities. Normal gait. Psych: Awake, alert, with orientation to person, place and time. Behavior, mood, and affect are within normal limits. 15:49 ECG was reviewed by the Attending Physician. Vital Signs: 14:25 BP 126 / 82; Pulse 83; Resp 18; Temp 98.6; Pulse Ox 98% on R/A; Weight 110.22 kg; kr3 Height 5 ft. 8 in. (172.72 cm); Pain 9/10; 14:25 Body Mass Index 36.95 (110.22 kg, 172.72 cm) kr3 MDM: 14:38 Patient medically screened. rosemary 15:53 Data reviewed: vital signs, nurses notes. Data interpreted: Pulse oximetry: on room air kb is 98 %. Interpretation: normal. 01/26 15:08 Order name: Chest Pa And Lat (2 Views) XRAY; Complete Time: 15:35 kb 01/26 15:08 Order name: EKG; Complete Time: 15:08 kb 01/26 15:08 Order name: EKG - Nurse/Tech; Complete Time: 15:40 kb EC:49 Rate is 80 beats/min. Rhythm is regular. QRS [place] is Normal. RI interval is normal at kb 144 msec. QRS interval is normal at 80 msec. QT interval is normal at 438 msec. Administered Medications: No medications were administered Disposition Summary: 01/26/22 17:10 Discharge Ordered Location: Home kb Condition: Stable kb Diagnosis - Chest pain, unspecified kb Followup: kb - With: Emergency Department - When: As needed - Reason: Worsening of condition Followup: kb - With: Private Physician - When: 2 - 3 days - Reason: Recheck today's complaints, Continuance of care, Re-evaluation by your physician Discharge Instructions: - Discharge Summary Sheet kb - Nonspecific Chest Pain, Adult, Fcum-by-Hydl kb Forms: - Medication Reconciliation Form kb - Thank You Letter kb - Antibiotic Education kb - Prescription Opioid Use kb Addendum: 01/28/2022 08:36 Co-signature as Attending Physician, Jesus Alberto Isreal MD I agree with the assessment and c puga plan of care. Signatures: Dispatcher [employer] Maria T Guerra, [employer]-C [employer]-Jesus Alberto Arce MD MD cha Reid, Kelley, RN RN kr3
--- NOTE | 2022-01-26 17:11 | ER ---
Nurse's Notes [facility] Name: Joan Wilson Age: 21 yrs Sex: Female : 2000 Arrival Date: 01/26/2022 Time: 14:19 Bed Treatment Private MD: Diagnosis: Chest pain, unspecified Presentation: 01/26 14:25 Chief complaint: Patient states: chest pain that started 5 days ago, now the pain has kr3 started hurting in my back. Was seen at [facility] for these symptoms and has not gotten any results. Coronavirus screen: Vaccine status: Patient reports receiving the 2nd dose of the covid vaccine. Client denies travel out of the [place] in the last 14 days. Ebola Screen: Patient denies travel to an Ebola-affected area in the 21 days before illness onset. Initial Sepsis Screen: Does the patient meet any 2 criteria? No. Patient's initial sepsis screen is negative. Does the patient have a suspected source of infection? No. Patient's initial sepsis screen is negative. Risk Assessment: Do you want to hurt yourself or someone else? Patient reports no desire to harm self or others. Onset of symptoms was January 21, 2022. 14:25 Method Of Arrival: Ambulatory kr3 14:25 Acuity: RHIANNA 3 kr3 Triage Assessment: 14:32 General: Appears comfortable, Behavior is calm, flat. Pain: Complains of pain in chest. kr3 Cardiovascular: Reports chest pain. Historical: - Allergies: 14:30 No Known Allergies; kr3 - PMHx: 14:30 Asthma; ovarian cyst; Anxiety; Depressive disorder; kr3 14:33 Irritable bowel syndrome; kr3 - PSHx: 14:30 cyst removal; kr3 - Immunization history:: Adult Immunizations up to date. - Social history:: Smoking status: Patient denies any tobacco usage or history of. Screenin:41 Abuse screen: Denies threats or abuse. Denies injuries from another. Nutritional tp1 screening: No deficits noted. Tuberculosis screening: No symptoms or risk factors identified. Fall Risk None identified. Assessment: 15:30 General: Appears in no apparent distress. comfortable, Behavior is calm, cooperative. tp1 Pain: Complains of pain in chest Pain radiates to back Pain currently is 6 out of 10 on a pain scale. Pain began 1 day ago. Neuro: Level of Consciousness is awake, alert, obeys commands, Oriented to person, place, time, situation. Cardiovascular: Patient's skin is warm and dry. Respiratory: Reports shortness of breath pain with respiration Airway is patent Respiratory effort is even, unlabored. GI: No signs and/or symptoms were reported involving the gastrointestinal system. : No signs and/or symptoms were reported regarding the genitourinary system. EENT: No signs and/or symptoms were reported regarding the EENT system. Derm: Skin is pink, warm \T\ dry. Musculoskeletal: Circulation, motion, and sensation intact. 15:44 Respiratory: Breath sounds are clear bilaterally. tp1 16:45 Reassessment: Patient appears in no apparent distress at this time. No changes from tp1 previously documented assessment. Patient and/or family updated on plan of care and expected duration. Pain level reassessed. Patient is alert, oriented x 3, equal unlabored respirations, skin warm/dry/pink. pain is unchanged. Vital Signs: 14:25 BP 126 / 82; Pulse 83; Resp 18; Temp 98.6; Pulse Ox 98% on R/A; Weight 110.22 kg; kr3 Height 5 ft. 8 in. (172.72 cm); Pain 9/10; 14:25 Body Mass Index 36.95 (110.22 kg, 172.72 cm) kr3 ED Course: 14:19 Patient arrived in ED. mr 14:30 Triage completed. kr3 14:33 Arm band placed on right wrist. kr3 14:35 Maria T Rivera FNP-C is [facility]. kb 14:35 Jesus Alberto Bach MD is Attending Physician. kb 15:20 Chest Pa And Lat (2 Views) XRAY In Process Unspecified. EDMS 15:27 Maeve Ruiz, VERNON is Primary Nurse. tp1 15:41 No provider procedures requiring assistance completed. Patient did not have IV access tp1 during this emergency room visit. Patient maintains SpO2 saturation greater than 95% on room air. 15:42 Patient has correct armband on for positive identification. Adult w/ patient. tp1 Administered Medications: No medications were administered Medication: 15:42 VIS not applicable for this client. tp1 Outcome: 17:10 Discharge ordered by . kb 17:21 Discharged to home ambulatory. tp1 17:21 Condition: good 17:21 Discharge instructions given to patient, family, Instructed on discharge instructions, follow up and referral plans. Demonstrated understanding of instructions, follow-up care. 17:21 Patient left the ED. tp1 Signatures: Dispatcher [employer] EDMaria T Jones, FAHEEM OLSENP-Lakeisha Smith Maeve Ruiz RN RN tp1 Verito Sandoval RN RN kr3
[2022-01-26 17:33] VITALS: BP 126/82; TEMP 98.6; O2SAT 98
--- NOTE | 2022-01-28 19:17 | EKG ---
Test Date: 2022-01-26 Test Time: 15:37:30 [employer] Supervisor: TP MEASUREMENT RESULTS: Intervals: Rate: 80 FL: 144 QRSD: 80 QT: 380 QTc: 438 [place]: P: 50 FL: 144 QRS: 77 T: 18 INTERPRETIVE STATEMENTS: Normal sinus rhythm Normal ECG No previous ECG available for comparison Electronically Signed On 01-28-22 19:10:57 PRINTER OPERATOR by Nicho Hinkle
== END 2022-01-26 17:21 | disposition home or self-care (01) ==
LOC: ER 14:15
DX: R07.9 Chest pain, unspecified (principal); F41.9 Anxiety disorder, unspecified; K58.9 Irritable bowel syndrome, unspecified
CPT/HCPCS: 71046; 93005; 99284

== ENCOUNTER 2022-10-09 12:30 | Emergency (ER) | payer OTHER ==
--- OUTSIDE RECORDS SUMMARY | 2022-10-09 12:35 | XMS REPORT | Continuity of Care Document ---
:2000 Author Organization [facility] t Address [address] [facility] [address] [place] [address] Care Team Providers Name Role Phone Emerson Rubio Primary Care Physician [phone] Problems This patient has no known problems. [...] 7-23 MOUTH EVERY 00:00: DAY 00 TAKE 2021-0 No 20 CAPSULE BY 7-18 MOUTH EVERY 00:00: DAY IN THE 00 MORNING Dose 2021-0 No Unknown 7-14 00:00: 00 &lt 2021-0 No 7-14 00:00: 00 TAKE 1 2021-0 No 20 TABLET BY 7-14 MOUTH THREE 00:00: TIMES A DAY 00 NEEDED FOR PAIN Dose 2021-0 No Unknown 7-14 00:00: 00 &lt 2-0 No 7-14 00:00: 00 TAKE 1 2021-0 No 20 TABLET BY 7-14 MOUTH THREE 00:00: TIMES A DAY 00 NEEDED FOR PAIN &lt 2021-0 No 7-11 00:00: 00 TAKE 1 2021-0 No 20 CAPSULE BY 7-11 MOUTH EVERY 00:00: DAY IN THE 00 MORNING TAKE 1 2022-0 No 10 TABLET BY 7-11 MOUTH EVERY 00:00: DAY 00 TAKE 1 2022-0 No 10 TABLET BY 7-11 MOUTH EVERY 00:00: DAY 00 Dose 2022-0 No Unknown 7-11 00:00: 00 TAKE 1 2022-0 No 20 CAPSULE BY 7-11 MOUTH EVERY 00:00: DAY IN THE 00 MORNING TAKE 1 2022-0 No 20 TABLET BY 7-11 MOUTH THREE 00:00: TIMES A DAY 00 NEEDED FOR PAIN &lt 2022-0 No 7-11 00:00: 00 TAKE 1 2-0 No 20 CAPSULE BY 7-11 MOUTH EVERY 00:00: DAY IN THE 00 MORNING TAKE 1 2-0 No 10 TABLET BY 7-11 MOUTH EVERY 00:00: DAY 00 TAKE 1 2-0 No 10 TABLET BY 7-11 MOUTH EVERY 00:00: DAY 00 Dose 2-0 No Unknown 7-11 00:00: 00 TAKE 1 2-0 No 20 CAPSULE BY 7-11 MOUTH EVERY 00:00: DAY IN THE 00 MORNING TAKE 1 2-0 No 20 TABLET BY 7-11 MOUTH THREE 00:00: TIMES A DAY 00 NEEDED FOR PAIN &lt 2022-0 No 6-21 00:00: 00 &lt [...] 2-0 No Unknown 2-21 00:00: 00 Flonase 2022-0 No 2mcg/ac Allergy [...] Goal Plan of Care Note [code = 44069-2] Goal Plan of Care Note [code = 19361-3] Goal Plan of Care Note [code = 14161-2] Goal Plan of Care Note [code = 41047-3] Goal Plan of Care Note [code = 18965-4] Goal Plan of Care Note [code = 17083-0] Goal Plan of Care Note [code = 83501-3] Goal Plan of Care Note [code = 27148-1] Goal Plan of Care Note [code = 04732-2] Goal Plan of Care Note [code = 39465-0] Goal Plan of Care Note [code = 33671-3] Goal Plan of Care Note [code = 81405-7] Goal Plan of Care Note [code = 23740-1] Goal Plan of Care Note [code = 97253-7] Goal Plan of Care Note [code = 60862-8] Goal Plan of Care Note [code = 75036-4] Goal Plan of Care Note [code = 06580-0] Goal Plan of Care Note [code = 73676-0] Goal Plan of Care Note [code = 46672-1] Goal Plan of Care Note [code = 32692-8] Goal Plan of Care Note [code = 54176-6] Goal Plan of Care Note [code = 15795-5] Goal Plan of Care Note [code = 49432-5] Goal Plan of Care Note [code = 05256-7] Goal Plan of Care Note [code = 83466-4] Goal Plan of Care Note [code = 51065-8] Goal Plan of Care Note [code = 85125-3] Goal Plan of Care Note [code = 08655-3] Goal Plan of Care Note [code = 99302-5] Goal Plan of Care Note [code = 20859-0] Goal Plan of Care Note [code = 79787-4] Goal Plan of Care Note [code = 91440-2] Goal Plan of Care Note [code = 74631-3] Goal Plan of Care Note [code = 32775-8] Goal Plan of Care Note [code = 93809-1] Goal Plan of Care Note [code = 55289-4] Goal Plan of Care Note [code = 27008-9] Goal Plan of Care Note [code = 70142-7] Goal Plan of Care Note [code = 57718-4] Goal Plan of Care Note [code = 46050-3] Encounters Start End Encounter Admission Attending Care Care Encounter Source Date/Time Date/Time Type Type Clinicians Facility Department ID 2022-10-09 2022-10-09 Outpatient SFA SFA [id number] Michael 11:37:01 11:37:01 [id number] F Yandel 2022-10-05 2022-10-05 Outpatient SFA SFA [id number] Michael 13:31:09 13:31:09 [id number] F Yandel 2022-09-26 2022-09-26 Outpatient SFA SFA [id number]- Michael 14:01:43 14:01:43 [id number] F Yandel 2022-08-29 2022-08-29 Outpatient SFA SFA [id number]- Michael 14:50:16 14:50:16 [id number] F Yandel 2022-08-21 2022-08-21 Outpatient SFA SFA [id number]- Michael 13:25:25 13:25:25 [id number] F Applegate 2022-08-15 2022-08-15 Outpatient SFA SFA [id number] Michael 14:09:19 14:09:19 [id number] F Applegate 2022-07-27 2022-07-27 Outpatient SFA SFA [id number]- Michael 11:07:14 11:07:14 [id number] F Yandel 2022-07-10 2022-07-10 Outpatient SFA SFA [id number]- Michael 13:08:28 13:08:28 [id number] F Applegate 2022-07-06 2022-07-06 Outpatient SFA SFA [id number]- Michael 13:04:12 13:04:12 [id number] F Applegate 2022-06-08 2022-06-08 Outpatient SFA SFA [id number]- Michael 14:42:24 14:42:24 [id number] F Yandel 2022-05-24 2022-05-24 Outpatient SFA SFA [id number]- Michael 14:14:05 14:14:05 [id number] F Yandel 2022-05-22 2022-05-22 Outpatient SFA SFA [id number] Michael 13:25:46 13:25:46 [id number] [facility] 2022-05-03 2022-05-03 Outpatient SFA SFA [id number] Michael 13:32:14 13:32:14 [id number] F Yandel 2022-04-05 2022-04-05 Outpatient SFA SFA Michael 11:30:32 11:30:32 [id number] F Yandel 2022-02-22 2022-02-22 Outpatient SFA SFA Michael 11:16:12 11:16:12 [id number] F Yandel 2022-01-24 2022-01-24 Outpatient SFA SFA Michael 15:49:42 15:49:42 F Yandel 2022-01-24 2022-01-24 Outpatient [id number] 00:00:00 00:00:00 Visit [id number] 2021-12-27 2021-12-27 Outpatient SFA SFA Michael 14:01:33 14:01:33 F Yandel 2021-12-08 2021-12-08 Outpatient SFA SFA Michael 11:58:18 11:58:18 F Yandel 2021-09-22 2021-09-22 Outpatient [id number]- [id number] 00:00:00 00:00:00 Visit [id number] Results Test Description Test Time Test Comments Results Result Comments Source COMPREHENSIVE METABOLIC PANEL 2022-05-23 06:00:09 Test Item Value Reference Range Interpretation Comme nts GLUCOSE (test code = 2217) 129 MG/DL 70-99 H BUN (test code = 2208) 8 MG/DL 6-20 CREATININE (test code = 0.68 MG/DL 0.60-1.30 2213) eGFR (2020 CKD-EPI) (test 128 ML/MIN/1.73 >60 code = 00779) CALC BUN/CREAT (test code = 12 RATIO -2234) SODIUM (test code = 2231) 141 MEQ/L 133-146 POTASSIUM (test code = 2228) 3.9 MEQ/L 3.5-5.4 CHLORIDE (test code = 2215) 104 MEQ/L 95-107 CARBON DIOXIDE (test code = 24 MEQ/L 19-31 2205) CALCIUM (test code = 220) 9.5 MG/DL 8.5-10.5 PROTEIN, TOTAL (test code = 7.5 G/DL 6.1-8.3 2228) ALBUMIN (test code = 2201) 4.7 G/DL 3.5-5.2 CALC GLOBULIN (test code = 2.8 G/DL 1.9-3.7 2239) CALC A/G RATIO (test code = 1.7 RATIO 1.0-2.6 2233) BILIRUBIN, TOTAL (test code 0.4 MG/DL See_Comment [Automated message] The = 2206) system which ge nerated this result transmit jung reference range : <=1.2. The reference range was not used to interpr et this result as abril l/abnormal. ALKALINE PHOSPHATASE (test 80 U/L 40-116 code = 2204) AST (test code = 2218) 18 U/L 9-40 ALT (test code = 2219) 18 U/L 5-40 LIPID [id number] 06:00:09 Test Item Value Reference Range Interpretation Comments CHOLESTEROL (test 179 MG/DL <200 code = 2210) TRIGLYCERIDES (test 83 MG/DL <150 code = 2232) HDL CHOLESTEROL (test 49 MG/DL >39 code = 2220) CALC LDL CHOL (test 112 MG/DL <100 H NOTE: C ALCULATED LDL code = 2237) IS BASED ON TAMIKA-ELE METHOD WHICHINCLUDES ADJUSTABLE TRIGLYCERIDE:VL DL CHOLESTEROL RAT IO.THIS FACTOR VARIES B Y MEASURED TRIGLY CERIDE AND NON-HDLCHOL ESTEROL CONCENTRATIONS WITH INCREASED CALCU LATED LDL SEENIN HIGH ER TRIGLYCERIDE OR LOWER NON-HDL SPECIME NS. FOR MOREINFORMATION , SEE CLIENT ANNOUNCE MENT AT [email or web address] RISK [email or web address] LDL/HDL 2.29 RATIO <3.22 (test code = 2238) HEMOGLOBIN [id number] 02:49:24 Test Item Value Reference Range Interpretation Comments HEMOGLOBIN A1c (test 5.3 % 4.2-5.6 CP L has important code = 41347) pathology staf f changes effective 05/10. New pathology s taff will provide uninter rupted, excellent patie nt care and clinical consultation. S ee URL: [email or web address]. UNLESS OTHERWISE INDICATED, ALL TESTING PERFORMED AT [facility] [employer] [address] [place] [address] [facility] DIRECTOR: HECTOR ANDREA M.D. [place] NUMBER [id number] CAP ACCREDITATION N O. [id number] CBC W/AUTO DIFF WITH [id number] 02:26:50 Test Item Value Reference Range Interpretation Comments WBC (test code = 6.6 K/UL 3.5-11.0 1001) RBC (test code = 4.37 M/UL 3.80-5.40 1002) HEMOGLOBIN (test code 12.9 G/DL 11.5-15.5 = 1003) HEMATOCRIT (test code 38.8 % 34.0-45.0 = 1004) MCV (test code = 88.8 fL 80.0-99.0 1005) MCH (test code = 29.5 PG 25.0-33.0 1006) MCHC (test code = 33.2 G/DL 31.0-36.0 1007) RDW (test code = 12.0 % 11.5-15.0 1038) NEUTROPHILS (test 64.8 % code = 1008) LYMPHOCYTES (test 28.1 % code = 1010) MONOCYTES (test code 5.1 % = 1011) EOSINOPHILS (test 0.8 % code = 1012) BASOPHILS (test code 0.9 % = 1013) IMMATURE GRANULOCYTES 0.3 % (test code = 1036) NUCLEATED RBCS (test 0.0 /100 WBC'S See_Comment [Aut omated code = 1065) message] The sy stem which generated this result transmitted reference range : 0.0. The refere nce range was not u sed to interpret th is result as normal/abnormal . PLATELET COUNT (test 304 K/UL 130-400 code = 1015) ABSOLUTE NEUTROPHILS 4.29 K/UL 1.50-7.50 (test code = 1066) ABSOLUTE LYMPHOCYTES 1.86 K/UL 1.00-4.00 (test code = 1067) ABSOLUTE MONOCYTES 0.34 K/UL 0.20-1.00 (test code = 1068) ABSOLUTE EOSINOPHILS 0.05 K/UL 0.00-0.50 (test code = 1040) ABSOLUTE BASOPHILS 0.06 K/UL 0.00-0.20 (test code = 1069) ABS IMMATURE 0.02 K/UL 0.00-0.10 GRANULOCYTES (test code = 1020) ABS NUCLEATED RBCS 0.00 K/UL 0.00-0.11 (test code = 70859) CHLAMYDIA, NAAT, [id number] 17:22:40 Test Item Value Reference Range Interpretation Comments CHLAMYDIA, NAAT NEGATIVE NEGATIVE IMPORTA NT NOTICE: SEE (test code = [place] [address]) [email or web address] Note: Assay methodology is nucleic acid amplification b y tieing machine operator m ediated amplification ( TMA) utilizing the A ptima Combo 2 Assay. GONORRHEA, NAAT, [id number] 17:22:40 Test Item Value Reference Range Interpretation Comments GONORRHEA, NAAT NEGATIVE NEGATIVE IMPORTA NT NOTICE: SEE (test code = [place] [address]) [email or web address] Note: Assay methodology is nucleic acid amplification b y tieing machine operator m ediated amplification ( TMA) utilizing the A ptima Combo 2 Assay. UNLESS OTHERWISE INDICATED, ALL TESTING PERFORMED [facility] [address] [place] [address] DIRECTOR: MATTHEW JHAVERI M.D. [place] NUMBER [id number] CAP ACCREDITATION N O. [id number] HIV 1/2 4TH GEN, RFLX [id number] 03:11:31 Test Item Value Reference Range Interpretation Comments HIV 1/2 4TH GEN, RFLX CONF (test NON-REACTIVE NON-REACTIVE code = 3514) HEPATITIS PANEL, [id number] 03:11:31 Test Item Value Reference Range Interpretation Comments HEPATITIS A IgM (test NON-REACTIVE NON-REACTIVE code = 28670) HEPATITIS B CORE IgM NON-REACTIVE NON-REACTIVE (test code = 4644) HEPATITIS B SURF AG NON-REACTIVE NON-REACTIVE (test code = 2739) HEPATITIS C ANTIBODY NON-REACTIVE NON-REACTIVE (test code = 4675) INTERPRETATION (NOTE) Hepatitis A HEPATITIS A: (test code sero logy shows no = 2552) evidence of acu te hepatitis A. INTERPRETATION (NOTE) Hepatitis B HEPATITIS B: (test code sero logy shows no = 69355) evidence of acu te hepatitis B and no indication of exposure to hepatitis B vir us in the previous domitila eight months. INTERPRETATION (NOTE) Hepatitis C HEPATITIS C: (test code sero logy shows no = 32871) evidence of exposure to hepatitisC viru s at this time. I t can take up to 12 months after exposure tothe hepatitis C vir us for antibodies to become detectab le in the blood in certain patient s. ACUTE HEPATITIS [id number] 00:00:00 Test Item Value Reference Range Interpretation Comments HEPATITIS A IgM (test code = NON-REACTIVE 35418) HEPATITIS B CORE IgM (test code NON-REACTIVE = 4644) HEPATITIS B SURF AG (test code = NON-REACTIVE 2739) HEPATITIS C ANTIBODY (test code NON-REACTIVE = 4675) INTERPRETATION HEPATITIS A: (NOTE) (test code = 2552) INTERPRETATION HEPATITIS B: (NOTE) (test code = 32352) INTERPRETATION HEPATITIS C: (NOTE) (test code = 30403) ACUTE HEPATITIS [id number] 00:00:00 Test Item Value Reference Range Interpretation Comments HEPATITIS A IgM (test code = NON-REACTIVE 71594) HEPATITIS B CORE IgM (test code NON-REACTIVE = 4644) HEPATITIS B SURF AG (test code = NON-REACTIVE 2739) HEPATITIS C ANTIBODY (test code NON-REACTIVE = 4675) INTERPRETATION HEPATITIS A: (NOTE) (test code = 2552) INTERPRETATION HEPATITIS B: (NOTE) (test code = 43060) INTERPRETATION HEPATITIS C: (NOTE) (test code = 30980) CHLAMYDIA, AMPLIFIED, [id number] 00:00:00 Test Item Value Reference Range Interpretation Comments CHLAMYDIA, NAAT (test code = 20939) NEGATIVE CHLAMYDIA, AMPLIFIED, [id number] 00:00:00 Test Item Value Reference Range Interpretation Comments CHLAMYDIA, NAAT (test code = 56404) NEGATIVE GC, AMPLIFIED, [id number] 00:00:00 Test Item Value Reference Range Interpretation Comments GONORRHEA, NAAT (test code = 02419) NEGATIVE GC, AMPLIFIED, [id number] 00:00:00 Test Item Value Reference Range Interpretation Comments GONORRHEA, NAAT (test code = 69109) NEGATIVE HIV AB/AG COMBO RFLX [id number] 00:00:00 Test Item Value Reference Range Interpretation Comments HIV 1/2 4TH GEN, RFLX CONF (test NON-REACTIVE code = 3514) ACUTE HEPATITIS [id number] 00:00:00 Test Item Value Reference Range Interpretation Comments HEPATITIS A IgM (test code = NON-REACTIVE 96026) HEPATITIS B CORE IgM (test code NON-REACTIVE = 5244) HEPATITIS B SURF AG (test code = NON-REACTIVE 9819) HEPATITIS C ANTIBODY (test code NON-REACTIVE = 4664) INTERPRETATION HEPATITIS A: (NOTE) (test code = 2552) INTERPRETATION HEPATITIS B: (NOTE) (test code = 83027) INTERPRETATION HEPATITIS C: (NOTE) (test code = 84195) CHLAMYDIA, AMPLIFIED, [id number] 00:00:00 Test Item Value Reference Range Interpretation Comments CHLAMYDIA, NAAT (test code = 76582) NEGATIVE GC, AMPLIFIED, [id number] 00:00:00 Test Item Value Reference Range Interpretation Comments GONORRHEA, NAAT (test code = 39977) NEGATIVE HIV AB/AG COMBO RFLX [id number] 00:00:00 Test Item Value Reference Range Interpretation Comments HIV 1/2 4TH GEN, RFLX CONF (test NON-REACTIVE code = 3514) HIV AB/AG COMBO RFLX [id number] 00:00:00 Test Item Value Reference Range Interpretation Comments HIV 1/2 4TH GEN, RFLX CONF (test NON-REACTIVE code = 3514) LIPID [id number] 03:46:49 Test Item Value Reference Range Interpretation [...] MOREINFORMATION , SEE CLIENT ANNOUNCE MENT AT [email or web address] RISK RATIO LDL/HDL 1.89 RATIO <3.22 (test code = 2238) COMPREHENSIVE METABOLIC [id number] 03:46:49 Test Item Value Reference Range Interpretation Comments GLUCOSE (test code = 94 MG/DL 70-99 2216) BUN (test code = 8 MG/DL 6-20 2207) CREATININE (test 0.63 MG/DL 0.50-1.10 code = 2214) eGFR (2020 CKD-EPI) 131 >60 (test code = 96464) ML/MIN/1.73 CALC BUN/CREAT (test 13 RATIO 6-28 code = 2235) SODIUM (test code = 141 MEQ/L 991-923 6096) POTASSIUM (test code 4.5 MEQ/L 3.5-5.4 = [...] [Automated message] (test code = 2207) The [employer] which generated this result transmitted ref erence range: <=1.2. T he reference range was not used to int erpret this result as normal/abnormal . ALKALINE PHOSPHATASE 95 U/L 41-120 (test code = 2204) AST (test code = 22 U/L 9-40 2217) ALT (test code = 27 U/L 5-40 UNLESS OTH ERWISE 2218) INDICATED, ALL TESTING PERFORM [facility] [place] [address] [facility], [place] [id number] [place] [address] DIRECTOR: MATTHEW JHAVERI M.D. CLIA NUMBER [id number] CAP ACCREDITATION N O. [id number] CBC W/AUTO DIFF WITH [id number] 03:43:18 Test Item Value Reference Range Interpretation [...] RBCS 0.00 K/UL 0.00-0.11 (test code = 17067) LIPID [id number] 00:00:00 Test Item Value Reference Range Interpretation Comments CHOLESTEROL (test code = 2210) 162 MG/DL TRIGLYCERIDES (test code = 2232) 166 MG/DL HDL CHOLESTEROL (test code = 2220) 47 MG/DL CALC LDL CHOL (test code = 2237) 89 MG/DL RISK RATIO LDL/HDL (test code = 1.89 RATIO 2238) LIPID [id number] 00:00:00 Test Item Value Reference Range Interpretation Comments CHOLESTEROL (test code = 2210) 162 MG/DL TRIGLYCERIDES (test code = 2232) 166 MG/DL HDL CHOLESTEROL (test code = 2220) 47 MG/DL CALC LDL CHOL (test code = 2237) 89 MG/DL RISK RATIO LDL/HDL (test code = 1.89 RATIO 2238) COMPREHENSIVE METABOLIC [id number] 00:00:00 Test Item Value Reference Range Interpretation Comments GLUCOSE (test code = 2217) 94 MG/DL BUN (test code = 2208) 8 MG/DL CREATININE (test code = 2214) 0.63 MG/DL eGFR (2020 CKD-EPI) (test 131 ML/MIN/1.73 code = 18793) CALC BUN/CREAT (test code = 13 RATIO 2235) SODIUM (test code = 2231) 141 MEQ/L POTASSIUM (test code = 2228) 4.5 MEQ/L CHLORIDE (test code = 2215) 103 MEQ/L CARBON DIOXIDE (test code = 25 MEQ/L 2205) CALCIUM (test code = 2209) 10.1 MG/DL PROTEIN, TOTAL (test code = 7.5 G/DL 2228) ALBUMIN (test code = 2201) 4.8 G/DL CALC GLOBULIN (test code = 2.7 G/DL 2240) CALC A/G RATIO (test code = 1.8 RATIO 2234) BILIRUBIN, TOTAL (test code = <0.2 MG/DL 2206) ALKALINE PHOSPHATASE (test 95 U/L code = 2204) AST (test code = 2218) 22 U/L ALT (test code = 2219) 27 U/L COMPREHENSIVE METABOLIC [id number] 00:00:00 Test Item Value Reference Range Interpretation Comments GLUCOSE (test code = 2217) 94 MG/DL BUN (test code = 2208) 8 MG/DL CREATININE (test code = 2214) 0.63 MG/DL eGFR (2020 CKD-EPI) (test 131 ML/MIN/1.73 code = 41309) CALC BUN/CREAT (test code = 13 RATIO 2234) SODIUM (test code = 2231) 141 MEQ/L POTASSIUM (test code = 2228) 4.5 MEQ/L CHLORIDE (test code = 2215) 103 MEQ/L CARBON DIOXIDE (test code = 25 MEQ/L 2205) CALCIUM (test code = 2209) 10.1 MG/DL PROTEIN, TOTAL (test code = 7.5 G/DL 2228) ALBUMIN (test code = 2201) 4.8 G/DL CALC GLOBULIN (test code = 2.7 G/DL 2239) CALC A/G RATIO (test code = 1.8 RATIO 2233) BILIRUBIN, TOTAL (test code = <0.2 MG/DL 2206) ALKALINE PHOSPHATASE (test 95 U/L code = 220) AST (test code = 2218) 22 U/L ALT (test code = 2219) 27 U/L CBC W/AUTO [id number] 00:00:00 Test Item Value Reference Range Interpretation [...] NUCLEATED RBCS (test code = 0.00 K/UL 96287) CBC W/AUTO [id number] 00:00:00 Test Item Value Reference Range Interpretation [...] NUCLEATED RBCS (test code = 0.00 K/UL 02808) LIPID [id number] 00:00:00 Test Item Value Reference Range Interpretation Comments CHOLESTEROL (test code = 2210) 162 MG/DL TRIGLYCERIDES (test code = 2232) 166 MG/DL HDL CHOLESTEROL (test code = 2220) 47 MG/DL CALC LDL CHOL (test code = 2237) 89 MG/DL RISK RATIO LDL/HDL (test code = 1.89 RATIO 2238) COMPREHENSIVE METABOLIC [id number] 00:00:00 Test Item Value Reference Range Interpretation Comments GLUCOSE (test code = 2217) 94 MG/DL BUN (test code = 2208) 8 MG/DL CREATININE (test code = 2214) 0.63 MG/DL eGFR (2020 CKD-EPI) (test 131 ML/MIN/1.73 code = 18925) CALC BUN/CREAT (test code = 13 RATIO 2235) SODIUM (test code = 2231) 141 MEQ/L POTASSIUM (test code = 2228) 4.5 MEQ/L CHLORIDE (test code = 2215) 103 MEQ/L CARBON DIOXIDE (test code = 25 MEQ/L 2205) CALCIUM (test code = 2209) 10.1 MG/DL PROTEIN, TOTAL (test code = 7.5 G/DL 2228) ALBUMIN (test code = 2201) 4.8 G/DL CALC GLOBULIN (test code = 2.7 G/DL 2239) CALC A/G RATIO (test code = 1.8 RATIO 2233) BILIRUBIN, TOTAL (test code = <0.2 MG/DL 2206) ALKALINE PHOSPHATASE (test 95 U/L code = 2204) AST (test code = 2218) 22 U/L ALT (test code = 2219) 27 U/L CBC W/AUTO [id number] 00:00:00 Test Item Value Reference Range Interpretation [...] NUCLEATED RBCS (test code = 0.00 K/UL 72102) CBC W/AUTO [id number] 00:00:00 Test Item Value Reference Range Interpretation [...] NUCLEATED RBCS (test code = 0.00 K/UL 58392) CBC W/AUTO [id number] 00:00:00 Test Item Value Reference Range Interpretation [...] NUCLEATED RBCS (test code = 0.00 K/UL 00471) CULTURE, [id number] 09:34:28SPECIMEN NUMBER: [id number] CULTURE, URINE SPECIMEN NUMBER: [id number] SPECIMEN COMMENT: URINE SOURCE:URINE REPORT STATUS: FINAL FINAL REPORT: 05/21/2021 >100,000 CFU/ML UROGENITAL EMILE PRESENT NO CO MMON PATHOGENS UNLESS OTHERWISE INDICATED, ALL TESTING PERFORMED [facility] [address] [place] [address] [employer] SALESPERSON: MATTHEW JHAVERI M.D. CLIA NUMBER [id number] [place]. [id number] CULTURE, [id number] 00:00:00 Test Item Value Reference Range Interpretation Comments CULTURE, URINE (test SPECIMEN NUMBER: code = 40788) [id number] CULTURE, [id number] 00:00:00 Test Item Value Reference Range Interpretation Comments CULTURE, URINE (test SPECIMEN NUMBER: code = 46340) [id number] CULTURE, [id number] 00:00:00 Test Item Value Reference Range Interpretation Comments CULTURE, URINE (test SPECIMEN NUMBER: code = 16492) [id number]
--- NOTE | 2022-10-09 13:27 | RAD REPORT ---
EXAM DESCRIPTION: CT - Head Brain Wo Cont - 10/09/2022 1:18 pm CLINICAL HISTORY: paresthesiass L side, ataxia x months COMPARISON: No comparisons TECHNIQUE: All CT scans are performed using dose optimization technique as appropriate and may inclu de automated exposure control or mA/KV adjustment according to patient size. FINDINGS: No intracranial hemorrhage, hydrocephalus or extra-axial fluid collection.No areas of brai n edema or evidence of midline shift. Bilateral mastoid fluid. The calvarium is intact. IMPRESSION: No acute intracranial abnormality. Bilateral mastoid effusions.
[2022-10-09] MEDS ORDERED: KETOROLAC 30 MG/ML INJ ONE (13:49)
[2022-10-09] MEDS ORDERED: NA CHLORIDE 0.9% 1,000 ML ONE (13:49)
[2022-10-09 13:57] LABS: Specific Gravity 1.017 (1.005-1.030)
[2022-10-09 14:00] LABS: Specific Gravity 1.017 (1.005-1.030); Urine Bacteria None Seen /HPF (<20); Urine Bilirubin NEGATIVE (Negative); Urine Blood Negative (Negative); Urine Clarity Turbid (Clear); Urine Color Light-Yellow (Yellow); Urine Glucose NEGATIVE (Negative); Urine Mucus Slight /HPF (None Seen); Urine Protein NEGATIVE (Negative); Urine RBC <5 /HPF (None Seen); Urine Urobilinogen Normal (Normal); Urine pH 5.5 (5.0-7.0)
[2022-10-09 14:03] LABS: Absolute Lymphocytes (CBC) 1.9 K/uL (0.7-4.9); Hematocrit 38.4 % (36.0-45.0); Lymphocytes % 20.6 % (15.3-44.8); MCV 89.4 fL (80-100)
[2022-10-09 14:17] LABS: Albumin 3.7 g/dL (3.4-5.0); Bilirubin Total 0.2 mg/dL (0.2-1.0); Potassium 3.6 mEq/L (3.5-5.1); Protein, Total 7.6 g/dL (6.4-8.2)
--- NOTE | 2022-10-09 15:02 | EDPHYS ---
Physician Documentation [facility] Name: Joan Wilson Age: 22 yrs Sex: Female : 2000 Arrival Date: 10/09/2022 Time: 12:30 Bed 10 Private MD: ED Physician Abraham Mcdowell HPI: 10/09 12:58 Patient is a 22-year-old female that has nonspecific numbness to her scalp, feels to jr11 the posterior scalp on the left side to be numb, right side to be tingly. Patient states that she has had months of losing her balance, primary care doctor sent her here for CT scan of her head. Denies any changes in vision, denies any weakness, states that yesterday she was out in the sun sweating a lot, got volume depleted.. Historical: - Allergies: 12:50 No Known Allergies; cm10 - PMHx: 12:50 Anxiety; Asthma; depressive disorder; Irritable bowel syndrome; Ovarian cyst; cm10 - PSHx: 12:50 Cyst removal; cm10 - Immunization history:: Adult Immunizations unknown. - Social history:: Smoking status: unknown. ROS: 12:58 All other systems are negative. jr11 Exam: 12:58 Constitutional: This is a well developed, well nourished patient who is awake, alert, jr11 and in no acute distress. Head/Face: Normocephalic, atraumatic. Eyes: Extra-ocular motions intact. Lids and lashes normal. Conjunctiva and sclera are non-icteric and not injected. Cornea within normal limits. Periorbital areas with no swelling, redness, or edema. ENT: Nares patent. No nasal discharge, no septal abnormalities noted. Oropharynx with no redness, swelling, or masses, exudates, or evidence of obstruction, uvula midline. Mucous membranes moist. Neck: Trachea midline, no thyromegaly or masses palpated, and no cervical lymphadenopathy. Supple, full range of motion without nuchal rigidity, or vertebral point tenderness. No Meningismus. Chest/axilla: Normal chest wall appearance and motion. Nontender with no deformity. No lesions are appreciated. Cardiovascular: Regular rate and rhythm with a normal S1 and S2. No gallops, murmurs, or rubs. Normal PMI, no JVD. No pulse deficits. Respiratory: Lungs have equal breath sounds bilaterally, clear to auscultation and percussion. No rales, rhonchi or wheezes noted. No increased work of breathing, no retractions or nasal flaring. Abdomen/GI: Soft, non-tender, with normal bowel sounds. No distension or tympany. No guarding or rebound. No evidence of tenderness throughout. Back: No spinal tenderness. No costovertebral tenderness. Full range of motion. Skin: Warm, dry with normal turgor. Normal color with no rashes, no lesions, and no evidence of cellulitis. MS/ Extremity: Pulses equal, no cyanosis. Neurovascular intact. Full, normal range of motion. Neuro: Awake and alert, GCS 15, oriented to person, place, time, and situation. No gross motor or sensory deficits. Vital Signs: 12:47 BP 112 / 70; Pulse 86; Resp 16; Temp 99.1; Pulse Ox 100% ; cm10 12:50 Weight 113.4 kg; Height 5 ft. 8 in. ; cm10 14:59 BP 121 / 62; Pulse 82; Resp 15; Pulse Ox 100% ; jl7 12:50 Body Mass Index 38.01 (113.40 kg, 172.72 cm) cm10 MDM: 12:53 Patient medically screened. jr11 12:58 Differential diagnosis: cardiac arrhythmia, generalized weakness, hypovolemia, vertigo, jr11 paresthesias, electrolyte imbalance. Data reviewed: vital signs, nurses notes. 14:59 ED course: Patient is a 22-year-old, feeling significantly better, no complaints now. jr11 Patient with his dizziness, likely the result of mastoid effusions. CT image reviewed by me, shows mastoid effusions. Consultation with Dr. Mendes over the phone, would not start antibiotics at this time. TMs with serous otitis media, no concern for infection no redness. This effusion likely causing her symptoms. Patient to follow-up ears nose and throat.. 10/09 12:55 Order name: CBC with Diff; Complete Time: 14:18 10/09 12:55 Order name: CMP; Complete Time: 14:18 10/09 12:55 Order name: Test, Urine; Complete Time: 14:18 10/09 12:55 Order name: UAM; Complete Time: 14:18 10/09 12:55 Order name: CT Head Brain wo Cont; Complete Time: 13:28 10/09 12:55 Order name: IV Saline Lock; Complete Time: 13:51 10/09 12:55 Order name: Labs collected and sent; Complete Time: 13:51 Administered Medications: 13:51 Drug: NS 0.9% IV 1000 ml Route: IV; Rate: 1 bolus; Site: right antecubital; [facility] 14:45 Follow up: Response: No adverse reaction; IV Status: Completed infusion; IV Intake: jl7 1000ml 14:46 Not Given (Patient Refused): TORadol - Ketorolac IVP 15 mg IVP once jl7 Disposition Summary: 10/09/22 15:01 Discharge Ordered Location: [facility] Condition: Stable jr11 Diagnosis - Dizziness and giddiness jr11 - Paresthesia of skin jr11 Followup: jr11 - With: Tereza Mendes MD - When: 1 - 2 days - Reason: Re-evaluation by your physician Discharge Instructions: - Discharge Summary Sheet jr11 - Dizziness jr11 - Paresthesia jr11 Forms: - Medication Reconciliation Form jr11 - Thank You Letter jr11 - Antibiotic Education jr11 - Prescription Opioid Use jr11 - Patient Portal Instructions jr11 Signatures: Dispatcher [employer] Daniel Joseph RN RN jl7 Abraham Mcdowell MD MD jr11 Marni Ortega RN RN cm10
--- NOTE | 2022-10-09 15:02 | ER ---
Nurse's Notes [facility] Name: Joan Wilson Age: 22 yrs Sex: Female : 2000 Arrival Date: 10/09/2022 Time: 12:30 Bed 10 Private MD: Diagnosis: Dizziness and giddiness;Paresthesia of skin Presentation: 10/09 12:47 Chief complaint: Patient states: "I got really overheated yesterday and I was having cm10 numbness on the right side of my head and it went away. This morning I woke up and I was having the numbness to the left and tingling to the back of the head." Pt also reports lower abdominal pain "I may have a UTI". Coronavirus screen: Client denies travel out of the [place] in the last 14 days. Ebola Screen: Patient denies travel to an Ebola-affected area in the 21 days before illness onset. No symptoms or risks identified at this time. Initial Sepsis Screen: Does the patient meet any 2 criteria? No. Patient's initial sepsis screen is negative. Does the patient have a suspected source of infection? No. Patient's initial sepsis screen is negative. Risk Assessment: Do you want to hurt yourself or someone else? Patient reports no desire to harm self or others. Onset of symptoms was October 09, 2022. 12:47 Method Of Arrival: Ambulatory cm10 12:47 Acuity: RHIANNA 3 cm10 Triage Assessment: 12:50 General: Appears in no apparent distress. comfortable, Behavior is calm, cooperative. cm10 Historical: - Allergies: 12:50 No Known Allergies; cm10 - PMHx: 12:50 Anxiety; Asthma; depressive disorder; Irritable bowel syndrome; Ovarian cyst; cm10 - PSHx: 12:50 Cyst removal; cm10 - Immunization history:: Adult Immunizations unknown. - Social history:: Smoking status: unknown. Screenin:00 [facility] ED Fall Risk Assessment (Adult) History of falling in the last 3 months, jl7 including since admission No falls in past 3 months (0 pts) Confusion or Disorientation No (0 pts) Intoxicated or Sedated No (0 pts) Impaired Gait No (0 pts) Mobility Assist Device Used No (0 pt) Altered Elimination No (0 pt) Score/Fall Risk Level 0 - 2 = Low Risk Oriented to surroundings, Maintained a safe environment. Abuse screen: Denies threats or abuse. Denies injuries from another. Nutritional screening: No deficits noted. Tuberculosis screening: No symptoms or risk factors identified. Assessment: 14:00 General: Appears in no apparent distress. uncomfortable, Behavior is cooperative, jl7 quiet. Pain: Denies pain. Neuro: Level of Consciousness is awake, alert, obeys commands, Oriented to person, place, time, situation. Cardiovascular: Patient's skin is warm and dry. Respiratory: Airway is patent Respiratory effort is even, unlabored, Respiratory pattern is regular, symmetrical. Derm: Skin is pink, warm \\T\\ dry. 14:51 Reassessment: Dr. Mcdowell at bedside discussing results and POC. jl7 Vital Signs: 12:47 BP 112 / 70; Pulse 86; Resp 16; Temp 99.1; Pulse Ox 100% ; cm10 12:50 Weight 113.4 kg; Height 5 ft. 8 in. ; cm10 14:59 BP 121 / 62; Pulse 82; Resp 15; Pulse Ox 100% ; jl7 12:50 Body Mass Index 38.01 (113.40 kg, 172.72 cm) cm10 ED Course: 12:32 Patient arrived in ED. am2 12:38 Abraham Mcdowell MD is Attending Physician. jr11 12:50 Triage completed. cm10 12:50 Arm band placed on Patient placed in waiting room. cm10 13:20 CT Head Brain wo Cont In Process Unspecified. EDMS 13:35 Daniel Trimble, RN is Primary Nurse. jl7 13:51 Initial lab(s) drawn, by ms, sent to lab. Urine collected: clean catch specimen, jl7 cloudy. Inserted saline lock: 20 gauge in right antecubital area, using aseptic technique. Blood collected. 14:00 Patient has correct armband on for positive identification. Provided Education on: room jl7 orientation, use of call cuevas. 15:01 Tereza Mendes MD is Referral Physician. jr11 15:16 No provider procedures requiring assistance completed. IV discontinued, intact, jl7 bleeding controlled, No redness/swelling at site. Pressure dressing applied. Administered Medications: 13:51 Drug: NS 0.9% IV 1000 ml Route: IV; Rate: 1 bolus; Site: right antecubital; jl7 14:45 Follow up: Response: No adverse reaction; IV Status: Completed infusion; IV Intake: jl7 1000ml 14:46 Not Given (Patient Refused): TORadol - Ketorolac IVP 15 mg IVP once jl7 Medication: 14:00 VIS not applicable for this client. jl7 Intake: 14:45 IV: 1000ml; Total: 1000ml. jl7 Outcome: 15:01 Discharge ordered by . mavis 15:16 Discharged to home ambulatory, with family. jl7 15:16 Condition: stable 15:16 Discharge instructions given to patient, family, Instructed on discharge instructions, follow up and referral plans. Demonstrated understanding of instructions, follow-up care. 15:17 Patient left the ED. jl7 Signatures: Dispatcher [employer] Daniel Joseph RN RN jl7 Marva Syed Jose, MD MD jr11 Marni Ortega RN RN cm10
[2022-10-09 15:39] VITALS: TEMP 99.1; O2SAT 100
[2022-10-09 15:41] VITALS: BP 121/62
== END 2022-10-09 15:17 | disposition home or self-care (01) ==
LOC: ER 12:30
DX: R42 Dizziness and giddiness (principal); R20.2 Paresthesia of skin
CPT/HCPCS: 85025; 81001; 36415; 81025; 80053; 70450; 96360; 99284; J7030

== ENCOUNTER 2023-09-07 16:21 | Emergency (ER) | payer OTHER ==
--- OUTSIDE RECORDS SUMMARY | 2023-09-07 16:28 | XMS REPORT | Continuity of Care Document ---
Author Name Unknown Address [address] [facility] [address] [place] [address] [facility] thconnect Address [address] [facility] [address] [place] [address] Care Team Providers Care Echocardiograph Tech Name Role Phone Lexie Greco Primary Care Physician Allergies, Adverse Reactions, Alerts Allergy Name Allergy Type Status Severity Reaction(s) Onset Date Inactive Date Treating Clinician Comments Source [place] - Intraven ous Propens[place] ty to adverse reaction to drug Active 09-19 00:00: 00 Michael Humphries Medications Ordered Medication Name Filled Medication Name Start Date Stop Date Current Medication? Ordering Clinician Indication Dosage Frequency Signature (SIG) Comments Components Source cetirizine 10 mg capsule 6 00:00: 00 Yes 1mg Michael Humphries TAKE 1 TABLET DAILY. 04-13 00:00: 00 07-16 00:00 :00 No 10 Michael Humphries AMOXICILLIN 500 MG - 00:00: 00 Yes Michael Humphries HYDROCODONE /ACETAMINOP HEN 7.5-325 MG TABS - 00:00: 00 Yes Michael Humphries TAKE 1 TABLET DAILY. 2022-03 00:00: 00 07-16 00:00 :00 No 20 Michael Humphries TAKE 1 TABLET DAILY NEEDED. 2022-03 00:00: 00 07-16 00:00 :00 No 500 Michael Humphries TAKE 1 TABLET DAILY. 2022-03 00:00: 00 07-16 00:00 :00 No 10 Michael Humphries 1 CAP EVERY 8 HOURS NEEDED FOR COUGH 2022-03 00:00: 00 07-16 00:00 :00 No 200 Michael Humphries TAKE 2 TABLETS ON DAY 1 THEN TAKE 1 TABLET A DAY FOR 4 DAYS. 2022-03 00:00: 00 07-16 00:00 :00 No 250 Michael Humphries TAKE 5 ML EVERY 4 TO 6 HOURS NEEDED. 2022-03 00:00: 00 07-16 00:00 :00 No [id number] Michael Humphries TAKE 1 TABLET DAILY. 2022-03 013 00:00: 00 07-16 00:00 :00 No 10 Michaeltish Humphries ESCITALOPRA M OXALATE 10 MG TABS 11-23 00:00: 00 Yes 10 Michael Humphries TAKE 1 TABLET DAILY. 11-23 00:00: 00 07-16 00:00 :00 No 10 Michael Humphries TAKE 1 TABLET DAILY. 816 00:00: 00 07-16 00:00 :00 No 10 Michael Humphries TAKE 1 CAPSULE BY MOUTH ONCE DAILY 10-09 00:00: 00 07-16 00:00 :00 No [id number] Michael Humphries TAKE 1 CAPSULE TWICE DAILY. 10-09 00:00: 00 07-16 00:00 :00 No 100 Michael Humphries TAKE 1 CAPSULE BY MOUTH ONCE DAILY 10-06 00:00: 00 07-16 00:00 :00 No [id number] Michael Humphries TAKE 1 CAPSULE BY MOUTH ONCE DAILY 10-05 00:00: 00 07-16 00:00 :00 No [id number] Michael Humphries TAKE 1 TABLET DAILY. 09-28 00:00: 00 07-16 00:00 :00 No 10 Michael Humphries ESCITALOPRA M OXALATE 10 MG TABS 08-30 00:00: 00 Yes Michael Humphries TAKE 1 TABLET DAILY. 08-30 00:00: 00 07-16 00:00 :00 No 10 Michaeltish Humphries TAKE 1 TABLET TWICE A DAY 08-29 00:00: 00 07-16 00:00 :00 No 500 Michael Humphries TAKE 1 TABLET TWICE DAILY. 6-15 00:00: 00 07-16 00:00 :00 No [id number] Michael Humphries TAKE 1 CAPSULE TWICE DAILY. 6-12 00:00: 00 07-16 00:00 :00 No 100 Michael Humphries TAKE 1 TABLET DAILY. 08-16 00:00: 00 07-16 00:00 :00 No 10 Michael Humphries TAKE 1 CAPSULE BY MOUTH ONCE DAILY 08-01 00:00: 00 07-16 00:00 :00 No [id number] Michael Humphries TAKE 1 CAPSULE BY MOUTH ONCE DAILY 07-27 00:00: 00 07-16 00:00 :00 No [id number] Michael Humphries TAKE 1 TABLET DAILY. 07-10 00:00: 00 07-16 00:00 :00 No 10 Michael Humphries TAKE 1 TABLET TWICE DAILY. 3 00:00: 00 07-16 00:00 :00 No 500 Michael Humphries ESCITALOPRA M OXALATE 10 MG TABS 2021-03 00:00: 00 Yes 10 Michael Humphries Dose Unknown 2021-03- 00:00: 00 Yes 20 Michael Humphries Dose Unknown 2021-03 2-14 00:00: 00 Yes 10 Michael Humphries TAKE 1 CAPSULE BY MOUTH THREE TIMES A DAY DIRECTED FOR ANXIETY OR AGGRESSION 2021-03 00:00: 00 Yes 10 Michael Humphries Dose Unknown 2021-0314 00:00: 00 Yes 10 Michael Humphries Dose Unknown 2021-03 2-14 00:00: 00 07-16 00:00 :00 No 10 Michael Humphries TAKE 1 TABLET BY MOUTH EVERY DAY 2021-03-14 00:00: 00 07-16 00:00 :00 No 10 Michael Humphries TAKE 1 TABLET BY MOUTH EVERY DAY 2021-03 0-17 00:00: 00 Yes Michael Humphries CETIRIZINE HYDROCHLORI DE 10 MG TABS 8- 00:00: 00 Yes Michael Humphries CETIRIZINE HYDROCHLORI DE 10 MG TABS 0 8-23 00:00: 00 No INHALE 1 TO 2 PUFFS BY MOUTH EVERY 4 TO 6 HOURS NEEDED DIRECTED 0 -12 00:00: 00 Yes Michael Humphries INHALE 1 TO 2 PUFFS BY MOUTH EVERY 4 TO 6 HOURS NEEDED DIRECTED 0 8-12 00:00: 00 No TAKE 1 TABLET BY MOUTH EVERY DAY 0 10-01 00:00: 00 Yes 10 Michael Hupmhries TAKE 1 TABLET BY MOUTH EVERY DAY 0 10-01 00:00: 00 No 10 TAKE 1 CAPSULE BY MOUTH EVERY DAY IN THE MORNING 0 18 00:00: 00 Yes 20 Michael Humphries TAKE 1 CAPSULE BY MOUTH EVERY DAY IN THE MORNING 0 18 00:00: 00 No 20 Dose Unknown 0 09-22 00:00: 00 Yes Michael Humphries &lt 0 09-22 00:00: 00 Yes Michael Humphries TAKE 1 TABLET BY MOUTH THREE TIMES A DAY NEEDED FOR PAIN 0 09-22 00:00: 00 Yes 20 Michael Humphries INHALE 1 TO 2 PUFFS BY MOUTH EVERY 4 TO 6 HOURS NEEDED DIRECTED 0 09-22 00:00: 00 Yes Michael Humphries TAKE 1 TABLET DAILY. 0 09-22 00:00: 00 Yes 10 Michael Humphries Dose Unknown 0 14 00:00: 00 No &lt 2021-0 14 00:00: 00 No TAKE 1 TABLET BY MOUTH THREE TIMES A DAY NEEDED FOR PAIN 2021-0 14 00:00: 00 No 20 Dose Unknown 0 14 00:00: 00 No &lt 2021-0 14 00:00: 00 No TAKE 1 TABLET BY MOUTH THREE TIMES A DAY NEEDED FOR PAIN 2021-0 14 00:00: 00 No 20 &lt 2021-0 - 00:00: 00 Yes Michael Humphries TAKE 1 CAPSULE BY MOUTH EVERY DAY IN THE MORNING 0 09-19 00:00: 00 Yes 20 Michael Humphries TAKE 1 TABLET BY MOUTH EVERY DAY 0 09-19 00:00: 00 Yes 10 Michael Humphries TAKE 1 TABLET BY MOUTH THREE TIMES A DAY NEEDED FOR PAIN 2022-0 7-11 00:00: 00 Yes 20 Michael Humphries &lt 2022-0 7-11 00:00: 00 No TAKE 1 CAPSULE BY MOUTH EVERY DAY IN THE MORNING 2-0 7-11 00:00: 00 No 20 TAKE 1 TABLET BY MOUTH EVERY DAY 2-0 7-11 00:00: 00 No 10 TAKE 1 TABLET BY MOUTH THREE TIMES A DAY NEEDED FOR PAIN 2-0 7-11 00:00: 00 No 20 &lt 2022-0 7-11 00:00: 00 No TAKE 1 CAPSULE BY MOUTH EVERY DAY IN THE MORNING 2021-0 7-11 00:00: 00 No 20 TAKE 1 TABLET BY MOUTH EVERY DAY 2-0 7-11 00:00: 00 No 10 TAKE 1 TABLET BY MOUTH THREE TIMES A DAY NEEDED FOR PAIN 2-0 7-11 00:00: 00 No 20 &lt 2022-0 6-21 00:00: 00 Yes Michael Humphries TAKE 1 TABLET BY MOUTH EVERY DAY 2021-0 6-21 00:00: 00 Yes Michael Humphries &lt 2022-0 6-21 00:00: 00 No &lt 2022-0 6-21 00:00: 00 No Dose Unknown 2021-0 4-12 00:00: 00 Yes Michael Humphries Dose Unknown 2021-0 4-12 00:00: 00 No Dose Unknown 2021-0 4-12 00:00: 00 No hydroxyzine HCl 25 mg tablet 2021-0 4-11 00:00: 00 Yes 1mg Michael Humphries hydroxyzine HCl 25 mg tablet 2021-0 4-11 00:00: 00 No 1mg hydroxyzine HCl 25 mg tablet 2021-0 4-11 00:00: 00 No 1mg cetirizine 10 mg capsule 2021-0 4-08 00:00: 00 Yes 1mg Michael Humphries cetirizine 10 mg capsule 2021-0 4-08 00:00: 00 No 1mg cetirizine 10 mg capsule 2021-0 4-08 00:00: 00 No 1mg TAKE 1 TABLET BY MOUTH EVERY DAY 2021-0 3-23 00:00: 00 Yes Michael Humphries Dose Unknown 2022-0 3-10 00:00: 00 Yes Michael Humphries Dose Unknown 2022-0 3-10 00:00: 00 No Dose Unknown 2022-0 3-10 00:00: 00 No dicyclomine 20 mg tablet 2022-0 3-09 00:00: 00 Yes 1mg Michael Humphries Dose Unknown 2022-0 3-09 00:00: 00 Yes Michael Humphries Dose Unknown 2022-0 3-09 00:00: 00 Yes Michael Humphries Dose Unknown 2022-0 3-09 00:00: 00 Yes Michael Humphries Dose Unknown 2022-0 3-09 00:00: 00 Yes Michael Humphries Dose Unknown 2022-0 3-09 00:00: 00 No Dose Unknown 2022-0 3-09 00:00: 00 No Dose Unknown 2022-0 3-09 00:00: 00 No Dose Unknown 2022-0 3-09 00:00: 00 No dicyclomine 20 mg tablet 2022-0 3-09 00:00: 00 No 1mg Dose Unknown 2022-0 3-09 00:00: 00 No Dose Unknown 2022-0 3-09 00:00: 00 No Dose Unknown 2022-0 3-09 00:00: 00 No Dose Unknown 2022-0 3-09 00:00: 00 No Dose Unknown 2022-0 3-09 00:00: 00 No Lexapro 10 mg tablet 2-0 2-21 00:00: 00 Yes 1mg Michael Humphries Dose Unknown 2-0 2-21 00:00: 00 Yes Michael Humphries Lexapro 10 mg tablet 2-0 2-21 00:00: 00 No 1mg Dose Unknown 2022-0 2-21 00:00: 00 No Lexapro 10 mg tablet 2022-0 2-21 00:00: 00 No 1mg Dose Unknown 2022-0 2-21 00:00: 00 No Flonase Allergy Relief 50 mcg/actuati on nasal spray,suspe nsion 2021-0 2-07 00:00: 00 Yes 2mcg/ac tuation Michael Humphries cetirizine 10 mg capsule 2021-0 2-07 00:00: 00 Yes 1mg Michael Humphries Flonase Allergy Relief 50 mcg/actuati on nasal spray,suspe nsion 04-18 00:00: 00 No 2mcg/ac tuation cetirizine 10 mg capsule 04-18 00:00: 00 No 1mg Flonase Allergy Relief 50 mcg/actuati on nasal spray,suspe nsion 04-18 00:00: 00 No 2mcg/ac tuation cetirizine 10 mg capsule 04-18 00:00: 00 No 1mg Immunizations Ordered Immunization Name Filled Immunization Name Date Status Comments Source Influenza, injectable, [place] [place] Canine Kidney, preservative-free, quadrivalent Influenza, injectable, [facility] [place] Canine Kidney, preservative-free, quadrivalent 2022-12-18 00:00:00 Completed Michael Humphries Pfizer COVID-19 Vaccine Pfizer COVID-19 Vaccine 2021-03-23 00:00:00 Completed Michael Humphries Pfizer COVID-19 Vaccine 2021-03-23 00:00:00 Completed Pfizer COVID-19 Vaccine 2021-03-23 00:00:00 Completed Pfizer COVID-19 Vaccine Pfizer COVID-19 Vaccine 2020-08-16 00:00:00 Completed Michael Humphries Pfizer COVID-19 Vaccine Pfizer COVID-19 Vaccine 2020-07-27 00:00:00 Completed Michael Humphries Vital Signs Vital Name Observation Time Observation Value Comments S kj BP Systolic 2023-08-13 13:14:00 122 mm[Hg] Rigoberto Humphries BP Diastolic 2023-08-13 13:14:00 81 mm[Hg] Abdiel phen Cyndi Humphries Weight Measured 2023-08-13 13:14:00 248.20 pounds Michael Humphries Height Measured 2023-08-13 13:14:00 69.00 inches Michael Humphries Body Temperature 2023-08-13 13:14:00 98.20 degrees Michael Humphries Heart Rate 2023-08-13 13:14:00 92.00 /min Cindy en F Yandel Respiratory Rate 2023-08-13 13:14:00 17.00 /min Michael Humphries BP Systolic 2023-07-26 14:36:00 114 mm[Hg] Rigoberto hen Cyndi Humphries BP Diastolic 2023-07-26 14:36:00 77 mm[Hg] Abdiel phen F Yandel Weight Measured 2023-07-26 14:36:00 246.40 pounds Michael F Yandel Height Measured 2023-07-26 14:36:00 69.00 inches Michael F Yandel Body Temperature 2023-07-26 14:36:00 98.20 degrees Michael F Yandel Heart Rate 2023-07-26 14:36:00 84.00 /min Cindy en F Yandel Respiratory Rate 2023-07-26 14:36:00 17.00 /min Michael F Yandel BP Systolic 2023-02-16 13:52:00 107 mm[Hg] Step hen F Yandel BP Diastolic 2023-02-16 13:52:00 74 mm[Hg] Abdiel phen F Yandel Weight Measured 2023-02-16 13:52:00 253.20 pounds Michael F Yandel Height Measured 2023-02-16 13:52:00 69.00 inches Michael F Yandel Body Temperature 2023-02-16 13:52:00 98.10 degrees Michael F Yandel Heart Rate 2023-02-16 13:52:00 84.00 /min Cindy en F Yandel Respiratory Rate 2023-02-16 13:52:00 Michael F Yandel BP Systolic 2023-01-23 08:58:00 108 mm[Hg] Step hen F Yandel BP Diastolic 2023-01-23 08:58:00 74 mm[Hg] Abdiel phen F Yandel Weight Measured 2023-01-23 08:58:00 253.40 pounds Michael F Yandel Height Measured 2023-01-23 08:58:00 69.00 inches Michael F Yandel Body Temperature 2023-01-23 08:58:00 98.10 degrees Michael F Yandel Heart Rate 2023-01-23 08:58:00 98.10 /min Cindy en F Yandel Respiratory Rate 2023-01-23 08:58:00 19.00 /min Michael F Yandel BP Systolic 2022-12-18 11:21:00 112 mm[Hg] Step hen F Yandel BP Diastolic 2022-12-18 11:21:00 67 mm[Hg] Abdiel phen F Yandel Weight Measured 2022-12-18 11:21:00 248.00 pounds Michael F Yandel Height Measured 2022-12-18 11:21:00 69.00 inches Michael F Yandel Body Temperature 2022-12-18 11:21:00 97.40 degrees Michael F Yandel Heart Rate 2022-12-18 11:21:00 76.00 /min Cindy en F Yandel Respiratory Rate 2022-12-18 11:21:00 Michael F Yandel BP Systolic 2022-10-09 11:32:00 111 mm[Hg] Step hen F Yandel BP Diastolic 2022-10-09 11:32:00 63 mm[Hg] Abdiel phen F Yandel Weight Measured 2022-10-09 11:32:00 247.00 pounds Michael F Yandel Height Measured 2022-10-09 11:32:00 69.00 inches Michael F Yandel Body Temperature 2022-10-09 11:32:00 97.70 degrees Michael F Yandel Heart Rate 2022-10-09 11:32:00 87.00 /min Cindy en F Yandel Respiratory Rate 2022-10-09 11:32:00 Michael F Yandel BP Systolic 2022-10-05 13:30:00 117 mm[Hg] Step hen F Yandel BP Diastolic 2022-10-05 13:30:00 80 mm[Hg] Abdiel phen F Yandel Weight Measured 2022-10-05 13:30:00 249.00 pounds Michael F Yandel Height Measured 2022-10-05 13:30:00 69.00 inches Michael F Yandel Body Temperature 2022-10-05 13:30:00 97.60 degrees Michael F Yandel Heart Rate 2022-10-05 13:30:00 81.00 /min Cindy en F Yandel Respiratory Rate 2022-10-05 13:30:00 Michael F Yandel BP Systolic 2022-08-29 14:55:00 112 mm[Hg] Step hen F Yandel BP Diastolic 2022-08-29 14:55:00 66 mm[Hg] Abdiel phen F Yandel Weight Measured 2022-08-29 14:55:00 248.60 pounds Michael F Yandel Height Measured 2022-08-29 14:55:00 69.00 inches Michael F Yandel Body Temperature 2022-08-29 14:55:00 97.90 degrees Michael F Yandel Heart Rate 2022-08-29 14:55:00 85.00 /min Cindy en F Yandel Respiratory Rate 2022-08-29 14:55:00 Michael F Yandel BP Systolic 2022-08-21 13:39:00 101 mm[Hg] Step hen F Yandel BP Diastolic 2022-08-21 13:39:00 59 mm[Hg] Abdiel phen F Yandel Weight Measured 2022-08-21 13:39:00 251.60 pounds Michael F Yandel Height Measured 2022-08-21 13:39:00 69.00 inches Michael F Yandel Body Temperature 2022-08-21 13:39:00 98.00 degrees Michael F Yandel Heart Rate 2022-08-21 13:39:00 82.00 /min Cinyd en F Yandel Respiratory Rate 2022-08-21 13:39:00 Michael F Yandel BP Systolic 2022-07-27 11:22:00 119 mm[Hg] Step hen F Yandel BP Diastolic 2022-07-27 11:22:00 77 mm[Hg] Abdiel phen F Yandel Weight Measured 2022-07-27 11:22:00 250.40 pounds Michael F Yandel Height Measured 2022-07-27 11:22:00 69.00 inches Michael F Yandel Body Temperature 2022-07-27 11:22:00 97.70 degrees Michael F Yandel Heart Rate 2022-07-27 11:22:00 76.00 /min Cindy en F Yandel Respiratory Rate 2022-07-27 11:22:00 Michael F Yandel BP Systolic 2022-07-10 13:08:00 118 mm[Hg] Step hen F Yandel BP Diastolic 2022-07-10 13:08:00 74 mm[Hg] Abdiel phen F Yandel Weight Measured 2022-07-10 13:08:00 250.40 pounds Michael F Yandel Height Measured 2022-07-10 13:08:00 69.00 inches Michael F Yandel Body Temperature 2022-07-10 13:08:00 98.00 degrees Michael F Yandel Heart Rate 2022-07-10 13:08:00 80.00 /min Cindy en F Yandel Respiratory Rate 2022-07-10 13:08:00 Michael F Yandel BP Systolic 2022-01-24 15:50:00 105 mm[Hg] BP [...] 13:34:00 88.00 /min Respiratory Rate 2021-03-23 13:34:00 Plan of Care Planned Activity Planned Date Details Comments Source Goal Plan of Care Note [code = 44645-6] Goal Plan of Care Note [code = 20008-0] Goal Plan of Care Note [code = 04152-6] Goal Plan of Care Note [code = 43716-4] Goal Plan of Care Note [code = 80691-1] Goal Plan of Care Note [code = 33887-8] Goal Plan of Care Note [code = 78928-4] Goal Plan of Care Note [code = 61166-7] Goal Plan of Care Note [code = 71969-8] Goal Plan of Care Note [code = 25203-8] Goal Plan of Care Note [code = 11558-6] Goal Plan of Care Note [code = 62204-4] Goal Plan of Care Note [code = 65000-6] Goal Plan of Care Note [code = 76330-5] Goal Plan of Care Note [code = 71457-2] Goal Plan of Care Note [code = 99061-4] Goal Plan of Care Note [code = 55712-6] Goal Plan of Care Note [code = 86456-6] Goal Plan of Care Note [code = 85677-3] Goal Plan of Care Note [code = 08186-2] Goal Plan of Care Note [code = 09901-3] Goal Plan of Care Note [code = 61582-4] Goal Plan of Care Note [code = 37554-4] Goal Plan of Care Note [code = 87204-1] Goal Plan of Care Note [code = 14222-3] Goal Plan of Care Note [code = 15155-4] Goal Plan of Care Note [code = 70191-3] Goal Plan of Care Note [code = 07635-7] Goal Plan of Care Note [code = 09854-9] Goal Plan of Care Note [code = 18795-7] Goal Plan of Care Note [code = 54610-1] Goal Plan of Care Note [code = 36835-3] Goal Plan of Care Note [code = 07456-7] Goal Plan of Care Note [code = 69676-7] Goal Plan of Care Note [code = 94443-5] Goal Plan of Care Note [code = 68555-0] Goal Plan of Care Note [code = 15629-7] Goal Plan of Care Note [code = 95152-3] Goal Plan of Care Note [code = 55446-7] Goal Plan of Care Note [code = 15405-4] Encounters Start Date/Time End Date/Time Encounter Type Admission Type Attending [facility] Care Department Encounter ID Source 2023-08-22 11:03:19 2023-08-22 11:03:19 Outpatient SFA SFA [id number] Michael Humphries 2023-08-13 13:12:57 2023-08-13 13:12:57 Outpatient SFA SFA [id number] Michael Humphries 2023-08-13 00:00:00 2023-08-13 00:00:00 Outpatient Visit SFA [id number] Michael Humphries 2023-07-26 13:42:26 2023-07-26 13:42:26 Outpatient SFA SFA [id number] Michael Humphries 2023-07-26 00:00:00 2023-07-26 00:00:00 Outpatient Visit SFA [id number] Michael Humphries 2023-07-11 10:12:22 2023-07-11 10:12:22 Outpatient SFA SFA [id number] Michael Humphries 2023-06-12 09:18:24 2023-06-12 09:18:24 Outpatient SFA SFA [id number] Mihcael Humphries 2023-05-02 10:36:52 2023-05-02 10:36:52 Outpatient SFA SFA [id number] Michael Humphries 2023-04-13 14:09:56 2023-04-13 14:09:56 Outpatient SFA SFA [id number] Michael Humphries 2023-03-28 09:02:49 2023-03-28 09:02:49 Outpatient SFA SFA [id number] Michael Humphries 2023-02-16 13:49:18 2023-02-16 13:49:18 Outpatient SFA SFA [id number] Michael Humphries 2023-02-15 13:48:43 2023-02-15 13:48:43 Outpatient SFA SFA [id number] Michael Humphries 2023-01-23 08:45:33 2023-01-23 08:45:33 Outpatient SFA SFA [id number] Michael Humphries 2023-01-17 15:28:37 2023-01-17 15:28:37 Outpatient SFA SFA [id number] Michael Humphries 2023-01-03 10:42:35 2023-01-03 10:42:35 Outpatient SFA SFA [id number] Michael Humphries 2022-12-22 13:22:43 2022-12-22 13:22:43 Outpatient SFA SFA [id number] Michael Humphries 2022-12-18 11:20:38 2022-12-18 11:20:38 Outpatient SFA SFA [id number] Michael Humphries 2022-11-30 10:50:36 2022-11-30 10:50:36 Outpatient SFA SFA [id number] Michael Humphries 2022-11-23 11:29:31 2022-11-23 11:29:31 Outpatient SFA SFA [id number] Michael Humphries 2022-10-09 11:37:01 2022-10-09 11:37:01 Outpatient SFA SFA [id number] Michael Humphries 2022-10-05 13:31:09 2022-10-05 13:31:09 Outpatient SFA SFA [id number] Michael Humphries 2022-09-26 14:01:43 2022-09-26 14:01:43 Outpatient SFA SFA [id number] Michael Humphries 2022-08-29 14:50:16 2022-08-29 14:50:16 Outpatient SFA SFA [id number] Michael Humphries 2022-08-21 13:25:25 2022-08-21 13:25:25 Outpatient SFA SFA [id number] Michael Humphries 2022-08-15 14:09:19 2022-08-15 14:09:19 Outpatient SFA SFA [id number] Michael Humphries 2022-07-27 11:07:14 2022-07-27 11:07:14 Outpatient SFA SFA [id number] Michael Humphries 2022-07-10 13:08:28 2022-07-10 13:08:28 Outpatient SFA SFA [id number] Michael Humphries 2022-07-06 13:04:12 2022-07-06 13:04:12 Outpatient SFA SFA [id number] Michael Humphries 2022-06-08 14:42:24 2022-06-08 14:42:24 Outpatient SFA SFA [id number] Michael Humphries 2022-05-24 14:14:05 2022-05-24 14:14:05 Outpatient SFA SFA [id number] Michael Humphries 2022-05-22 13:25:46 2022-05-22 13:25:46 Outpatient SFA SFA [id number] Michael Humphries 2022-05-03 13:32:14 2022-05-03 13:32:14 Outpatient SFA SFA [id number] Michael Humphries 2022-04-05 11:30:32 2022-04-05 11:30:32 Outpatient SFA SFA [id number] Michael Humphries 2022-02-22 11:16:12 2022-02-22 11:16:12 Outpatient SFA SFA [id number] Michael Humphries 2022-01-24 15:49:42 2022-01-24 15:49:42 Outpatient SFA SFA [id number] Michael Humphries 2022-01-24 00:00:00 2022-01-24 00:00:00 Outpatient Visit [id number] 2021-12-27 14:01:33 2021-12-27 14:01:33 Outpatient SFA SFA [id number] Michael Humphries 2021-12-08 11:58:18 2021-12-08 11:58:18 Outpatient SFA SFA [id number] Michael Humphries 2021-09-22 00:00:00 2021-09-22 00:00:00 Outpatient Visit [id number] Results Test Description Test Time Test Comments Results Result Co mments Source VITAMIN [id number] 06:25:23* Test Item Value Reference Range Interpretation Comme nts VITAMIN B-12 (test code = 2840) 315 PG/ML 200-950 SEDIMENTATION [id number] 06:19:33* Test Item Value Reference Range Interpretation Comme nts SEDIMENTATION RATE (test code = 1017) 19 MM/HOUR 0-20 UNLESS OTHERW ISE INDICATED, ALL TESTING PERFORMED AT [facility] [address] [place] [address] TABLE GAMES SHIFT MANAGER: LANA ANDREA M.D. [place] NUMBER [id number] [facility] [place] [id number] TSH, THIRD [id number] 06:15:53* Test Item Value Reference Range Interpretation Comme nts TSH, THIRD GENERATION (test code = 2821) 1.320 UIU/ML 0.400-4.100 COMPREHENSIVE METABOLIC [id number] 04:33:19* Test Item Value Reference Range Interpretation Comme nts GLUCOSE (test code = 2217) 90 MG/DL 70-99 BUN (test code = 2207) 9 MG/DL 6-20 CREATININE (test code = 2213) 0.78 MG/DL 0.60-1.30 eGFR (2020 CKD-EPI) (test code = 79138) 111 ML/MIN/1.73 >60 CALC BUN/CREAT (test code = 2235) 12 RATIO 6-28 SODIUM (test code = 223) 140 MEQ/L 133-146 POTASSIUM (test code = 2228) 4.4 MEQ/L 3.5-5.4 CHLORIDE (test code = 2215) 105 MEQ/L 95-107 CARBON DIOXIDE (test code = 2206) 23 MEQ/L 19-31 CALCIUM (test code = 2209) 9.7 MG/DL 8.5-10.5 PROTEIN, TOTAL (test code = 222) 7.3 G/DL 6.1-8.3 ALBUMIN (test code = 220) 4.9 G/DL 3.5-5.2 CALC GLOBULIN (test code = 2240) 2.4 G/DL 1.9-3.7 CALC A/G RATIO (test code = 2234) 2.0 RATIO 1.0-2.6 BILIRUBIN, TOTAL (test code = 2206) 0.3 MG/DL <=1.2 ALKALINE PHOSPHATASE (test code = 2203) 109 U/L 39-117 AST (test code = 2218) 11 U/L 9-40 ALT (test code = 2219) 16 U/L 5-40 LIPID [id number] 04:33:19* Test Item Value Reference Range Interpretation Comme nts CHOLESTEROL (test code = 2210) 154 MG/DL <200 TRIGLYCERIDES (test code = 2232) 87 MG/DL <150 HDL CHOLESTEROL (test code = 2220) 43 MG/DL >39 CALC LDL CHOL (test code = 2237) 93 MG/DL <100 NOTE: CALCULATED LDL IS BASED ON TAMIKA-LEE METHOD WHICHINCLUDES ADJUSTABLE TRIGLYCERIDE:VLDL CHOLESTEROL RATIO.THIS FACTOR VARIES BY MEASURED TRIGLYCERIDE AND NON-HDLCHOLESTEROL CONCENTRATIONS WITH INCREASED CALCULATED LDL SEENIN HIGHER TRIGLYCERIDE OR LOWER NON-HDL SPECIMENS. FOR MOREINFORMATION, SEE CLIENT ANNOUNCEMENT AT [email or web address] RATIO LDL/HDL (test code = 2238) 2.16 RATIO <3.22 UNLESS OTHERW ISE INDICATED, ALL TESTING PERFORMED AT [facility] [address] [place] [address] TABLE GAMES SHIFT MANAGER: LANA ANDREA M.D. CLIA NUMBER [id number] [facility] [place]. [id number] CBC W/AUTO DIFF WITH [id number] 03:26:43* Test Item Value Reference Range Interpretation Comme nts WBC (test code = 1001) 8.4 K/UL 3.5-11.0 RBC (test code = 1002) 4.46 M/UL 3.80-5.40 HEMOGLOBIN (test code = 1003) 13.5 G/DL 11.5-15.5 HEMATOCRIT (test code = 1004) 41.0 % 34.0-45.0 MCV (test code = 1005) 91.9 fL 80.0-99.0 MCH (test code = 1006) 30.3 PG 25.0-33.0 MCHC (test code = 1007) 32.9 G/DL 31.0-36.0 RDW (test code = 1038) 12.4 % 11.5-15.0 NEUTROPHILS (test code = 1008) 65.9 % LYMPHOCYTES (test code = 1010) 24.6 % MONOCYTES (test code = 1011) 7.4 % EOSINOPHILS (test code = 1012) 0.7 % BASOPHILS (test code = 1013) 1.0 % IMMATURE GRANULOCYTES (test code = 1036) 0.4 % NUCLEATED RBCS (test code = 1065) 0.0 /100 WBC'S See_Comment [Automated messa ge] The system which generated this result transmitted reference range: 0.0. The reference range was not used to interpret this result as normal/abnormal. PLATELET COUNT (test code = 1015) 324 K/UL 130-400 ABSOLUTE NEUTROPHILS (test code = 1066) 5.54 K/UL 1.50-7.50 ABSOLUTE LYMPHOCYTES (test code = 1067) 2.06 K/UL 1.00-4.00 ABSOLUTE MONOCYTES (test code = 1068) 0.62 K/UL 0.20-1.00 ABSOLUTE EOSINOPHILS (test code = 1040) 0.06 K/UL 0.00-0.50 ABSOLUTE BASOPHILS (test code = 1069) 0.08 K/UL 0.00-0.20 ABS IMMATURE GRANULOCYTES (test code = 1020) 0.03 K/UL 0.00-0.10 ABS NUCLEATED RBCS (test code = 59719) 0.00 K/UL 0.00-0.11 CBC W/AUTO [id number] 00:00:00* Test Item Value Reference Range Interpretation Comme nts WBC (test code = 1001) 8.4 K/UL RBC (test code = 1002) 4.46 M/UL HEMOGLOBIN (test code = 1003) 13.5 G/DL HEMATOCRIT (test code = 1004) 41.0 % MCV (test code = 1005) 91.9 fL MCH (test code = 1006) 30.3 PG MCHC (test code = 1007) 32.9 G/DL RDW (test code = 1038) 12.4 % NEUTROPHILS (test code = 1008) 65.9 % LYMPHOCYTES (test code = 1010) 24.6 % MONOCYTES (test code = 1011) 7.4 % EOSINOPHILS (test code = 1012) 0.7 % BASOPHILS (test code = 1013) 1.0 % IMMATURE GRANULOCYTES (test code = 1036) 0.4 % NUCLEATED RBCS (test code = 1065) 0.0 /100WBC'S PLATELET COUNT (test code = 1015) 324 K/UL ABSOLUTE NEUTROPHILS (test c ode = 1066) 5.54 K/UL ABSOLUTE LYMPHOCYTES (test c ode = 1067) 2.06 K/UL ABSOLUTE MONOCYTES (test cod e = 1068) 0.62 K/UL ABSOLUTE EOSINOPHILS (test c ode = 1040) 0.06 K/UL ABSOLUTE BASOPHILS (test cod e = 1069) 0.08 K/UL ABS IMMATURE GRANULOCYTES (t est code = 1020) 0.03 K/UL ABS NUCLEATED RBCS (test cod e = 15237) 0.00 K/UL Michael HumphriesCOMPREHENSIVE METABOLIC [id number] 00:00:00* Test Item Value Reference Range Interpretation Comme nts GLUCOSE (test code = 2217) 90 MG/DL BUN (test code = 2208) 9 MG/DL CREATININE (test code = 2214) 0.78 MG/DL eGFR (2020 CKD-EPI) (test code = 07711) 111 ML/MIN/1.73 CALC BUN/CREAT (test code = 2235) 12 RATIO SODIUM (test code = 2231) 140 MEQ/L POTASSIUM (test code = 2228) 4.4 MEQ/L CHLORIDE (test code = 2215) 105 MEQ/L CARBON DIOXIDE (test code = 2206) 23 MEQ/L CALCIUM (test code = 2209) 9.7 MG/DL PROTEIN, TOTAL (test code = 2229) 7.3 G/DL ALBUMIN (test code = 2201) 4.9 G/DL CALC GLOBULIN (test code = 2240) 2.4 G/DL CALC A/G RATIO (test code = 2234) 2.0 RATIO BILIRUBIN, TOTAL (test code = 2207) 0.3 MG/DL ALKALINE PHOSPHATASE (test code = 2204) 109 U/L AST (test code = 2218) 11 U/L ALT (test code = 2219) 16 U/L Michael Hanna AustinLIPID [id number] 00:00:00* Test Item Value Reference Range Interpretation Comme nts CHOLESTEROL (test code = 2210) 154 MG/DL TRIGLYCERIDES (test code = 2232) 87 MG/DL HDL CHOLESTEROL (test code = 2220) 43 MG/DL CALC LDL CHOL (test code = 2237) 93 MG/DL RISK RATIO LDL/HDL (test cod e = 2238) 2.16 RATIO Michael HumphriesCULTURE, [id number] 00:00:00* Test Item Value Reference Range Interpretation Comme nts CULTURE, URINE (test code = 18188) SPECIMEN NUMBER: [id number] Michael Tello, [id number] 00:00:00* Test Item Value Reference Range Interpretation Comme nts CULTURE, URINE (test code = 65097) SPECIMEN NUMBER: [id number] Michael HumphriesCULTURE, [id number] 00:00:00* Test Item Value Reference Range Interpretation Comme nts CULTURE, URINE (test code = 04547) SPECIMEN NUMBER: [id number] Michael DíazLTURE, [id number] 00:00:00* Test Item Value Reference Range Interpretation Comme nts CULTURE, URINE (test code = 57611) SPECIMEN NUMBER: [id number] Michael HumphriesLIPID [id number] 06:00:09* Test Item Value Reference Range Interpretation Comme nts CHOLESTEROL (test code = 2210) 179 MG/DL <200 TRIGLYCERIDES (test code = 2232) 83 MG/DL <150 HDL CHOLESTEROL (test code = 2220) 49 MG/DL >39 CALC LDL CHOL (test code = 2237) 112 MG/DL <100 H NOTE: CALCULATED LDL IS BASED ON TAMIKA-LEE METHOD WHICHINCLUDES ADJUSTABLE TRIGLYCERIDE:VLDL CHOLESTEROL RATIO.THIS FACTOR VARIES BY MEASURED TRIGLYCERIDE AND NON-HDLCHOLESTEROL CONCENTRATIONS WITH INCREASED CALCULATED LDL SEENIN HIGHER TRIGLYCERIDE OR LOWER NON-HDL SPECIMENS. FOR MOREINFORMATION, SEE CLIENT ANNOUNCEMENT AT [email or web address] [email or web address] RATIO LDL/HDL (test code = 2238) 2.29 RATIO <3.22 COMPREHENSIVE METABOLIC [id number] 06:00:09* Test Item Value Reference Range Interpretation Comme nts GLUCOSE (test code = 2217) 129 MG/DL 70-99 H BUN (test code = 2208) 8 MG/DL 6-20 CREATININE (test code = 2214) 0.68 MG/DL 0.60-1.30 eGFR (2020 CKD-EPI) (test code = 06081) 128 ML/MIN/1.73 >60 CALC BUN/CREAT (test code = 2235) 12 RATIO 6-28 SODIUM (test code = 223) 141 MEQ/L 133-146 POTASSIUM (test code = 2228) 3.9 MEQ/L 3.5-5.4 CHLORIDE (test code = 5) 104 MEQ/L 95-107 CARBON DIOXIDE (test code = 2205) 24 MEQ/L 19-31 CALCIUM (test code = 2208) 9.5 MG/DL 8.5-10.5 PROTEIN, TOTAL (test code = 2228) 7.5 G/DL 6.1-8.3 ALBUMIN (test code = 2200) 4.7 G/DL 3.5-5.2 CALC GLOBULIN (test code = 0) 2.8 G/DL 1.9-3.7 CALC A/G RATIO (test code = 2233) 1.7 RATIO 1.0-2.6 BILIRUBIN, TOTAL (test code = 2206) 0.4 MG/DL See_Comment [Automated me ssage] The system which generated this result transmitted reference range: <=1.2. The reference range was not used to interpret this result as normal/abnormal. ALKALINE PHOSPHATASE (test code = 2203) 80 U/L 40-116 AST (test code = 2217) 18 U/L 9-40 ALT (test code = 9) 18 U/L 5-40 HEMOGLOBIN [id number] 02:49:24* Test Item Value Reference Range Interpretation Comme nts HEMOGLOBIN A1c (test code = 45632) 5.3 % 4.2-5.6 [facility] has impo rtant pathology staff changes effective 05/10/2022. New pathology staff will provide uninterrupted, excellent patient care and clinical consultation. See URL: [email or web address]. UNLESS OTHERWISE INDICATED, ALL TESTING PERFORMED AT [facility] [address] [place] [id number] TABLE GAMES SHIFT MANAGER: LANA ANDREA M.D. CLIA NUMBER [id number] [facility] [place]. [id number] CBC W/AUTO DIFF WITH [id number] 02:26:50* Test Item Value Reference Range Interpretation Comme nts WBC (test code = 1001) 6.6 K/UL 3.5-11.0 RBC (test code = 1002) 4.37 M/UL 3.80-5.40 HEMOGLOBIN (test code = 1003) 12.9 G/DL 11.5-15.5 HEMATOCRIT (test code = 1004) 38.8 % 34.0-45.0 MCV (test code = 1005) 88.8 fL 80.0-99.0 MCH (test code = 1006) 29.5 PG 25.0-33.0 MCHC (test code = 1007) 33.2 G/DL 31.0-36.0 RDW (test code = 1038) 12.0 % 11.5-15.0 NEUTROPHILS (test code = 1008) 64.8 % LYMPHOCYTES (test code = 1010) 28.1 % MONOCYTES (test code = 1011) 5.1 % EOSINOPHILS (test code = 1012) 0.8 % BASOPHILS (test code = 1013) 0.9 % IMMATURE GRANULOCYTES (test code = 1036) 0.3 % NUCLEATED RBCS (test code = 1065) 0.0 /100 WBC'S See_Comment [Automated [employer]] The system which generated this result transmitted reference range: 0.0. The reference range was not used to interpret this result as normal/abnormal. PLATELET COUNT (test code = 1015) 304 K/UL 130-400 ABSOLUTE NEUTROPHILS (test code = 1066) 4.29 K/UL 1.50-7.50 ABSOLUTE LYMPHOCYTES (test code = 1067) 1.86 K/UL 1.00-4.00 ABSOLUTE MONOCYTES (test code = 1068) 0.34 K/UL 0.20-1.00 ABSOLUTE EOSINOPHILS (test code = 1040) 0.05 K/UL 0.00-0.50 ABSOLUTE BASOPHILS (test code = 1069) 0.06 K/UL 0.00-0.20 ABS IMMATURE GRANULOCYTES (test code = 1020) 0.02 K/UL 0.00-0.10 ABS NUCLEATED RBCS (test code = 40845) 0.00 K/UL 0.00-0.11 COMPREHENSIVE METABOLIC [id number] 00:00:00* Test Item Value Reference Range Interpretation Comme nts GLUCOSE (test code = 2217) 129 MG/DL BUN (test code = 2208) 8 MG/DL CREATININE (test code = 2214) 0.68 MG/DL eGFR (2020 CKD-EPI) (test code = 76824) 128 ML/MIN/1.73 CALC BUN/CREAT (test code = 2235) 12 RATIO SODIUM (test code = 2231) 141 MEQ/L POTASSIUM (test code = 2228) 3.9 MEQ/L CHLORIDE (test code = 2215) 104 MEQ/L CARBON DIOXIDE (test code = 2206) 24 MEQ/L CALCIUM (test code = 2209) 9.5 MG/DL PROTEIN, TOTAL (test code = 2229) 7.5 G/DL ALBUMIN (test code = 2201) 4.7 G/DL CALC GLOBULIN (test code = 2240) 2.8 G/DL CALC A/G RATIO (test code = 2234) 1.7 RATIO BILIRUBIN, TOTAL (test code = 2207) 0.4 MG/DL ALKALINE PHOSPHATASE (test code = 2204) 80 U/L AST (test code = 2218) 18 U/L ALT (test code = 2219) 18 U/L Michael Hanna YandelLIPID [id number] 00:00:00* Test Item Value Reference Range Interpretation Comme nts CHOLESTEROL (test code = 2210) 179 MG/DL TRIGLYCERIDES (test code = 2232) 83 MG/DL HDL CHOLESTEROL (test code = 2220) 49 MG/DL CALC LDL CHOL (test code = 2237) 112 MG/DL RISK RATIO LDL/HDL (test cod e = 2238) 2.29 RATIO Michael HumphriesCBC W/AUTO [id number] 00:00:00* Test Item Value Reference Range Interpretation Comme nts WBC (test code = 1001) 6.6 K/UL RBC (test code = 1002) 4.37 M/UL HEMOGLOBIN (test code = 1003) 12.9 G/DL HEMATOCRIT (test code = 1004) 38.8 % MCV (test code = 1005) 88.8 fL MCH (test code = 1006) 29.5 PG MCHC (test code = 1007) 33.2 G/DL RDW (test code = 1038) 12.0 % NEUTROPHILS (test code = 1008) 64.8 % LYMPHOCYTES (test code = 1010) 28.1 % MONOCYTES (test code = 1011) 5.1 % EOSINOPHILS (test code = 1012) 0.8 % BASOPHILS (test code = 1013) 0.9 % IMMATURE GRANULOCYTES (test code = 1036) 0.3 % NUCLEATED RBCS (test code = 1065) 0.0 /100WBC'S PLATELET COUNT (test code = 1015) 304 K/UL ABSOLUTE NEUTROPHILS (test c ode = 1066) 4.29 K/UL ABSOLUTE LYMPHOCYTES (test c ode = 1067) 1.86 K/UL ABSOLUTE MONOCYTES (test cod e = 1068) 0.34 K/UL ABSOLUTE EOSINOPHILS (test c ode = 1040) 0.05 K/UL ABSOLUTE BASOPHILS (test cod e = 1069) 0.06 K/UL ABS IMMATURE GRANULOCYTES (t est code = 1020) 0.02 K/UL ABS NUCLEATED RBCS (test cod e = 49877) 0.00 K/UL Michael HumphriesHEMOGLOBIN [id number] 00:00:00* Test Item Value Reference Range Interpretation Comme nts HEMOGLOBIN A1c (test code = 64373) 5.3 % Michael HumphriesCOMPREHENSIVE METABOLIC [id number] 00:00:00* Test Item Value Reference Range Interpretation Comme nts GLUCOSE (test code = 2217) 129 MG/DL BUN (test code = 2208) 8 MG/DL CREATININE (test code = 2214) 0.68 MG/DL eGFR (2020 CKD-EPI) (test code = 65871) 128 ML/MIN/1.73 CALC BUN/CREAT (test code = 2235) 12 RATIO SODIUM (test code = 2231) 141 MEQ/L POTASSIUM (test code = 2228) 3.9 MEQ/L CHLORIDE (test code = 2215) 104 MEQ/L CARBON DIOXIDE (test code = 2206) 24 MEQ/L CALCIUM (test code = 2209) 9.5 MG/DL PROTEIN, TOTAL (test code = 2229) 7.5 G/DL ALBUMIN (test code = 2201) 4.7 G/DL CALC GLOBULIN (test code = 2240) 2.8 G/DL CALC A/G RATIO (test code = 2234) 1.7 RATIO BILIRUBIN, TOTAL (test code = 2207) 0.4 MG/DL ALKALINE PHOSPHATASE (test code = 2204) 80 U/L AST (test code = 2218) 18 U/L ALT (test code = 2219) 18 U/L Michael HumphriesLIPID [id number] 00:00:00* Test Item Value Reference Range Interpretation Comme nts CHOLESTEROL (test code = 2210) 179 MG/DL TRIGLYCERIDES (test code = 2232) 83 MG/DL HDL CHOLESTEROL (test code = 2220) 49 MG/DL CALC LDL CHOL (test code = 2237) 112 MG/DL RISK RATIO LDL/HDL (test cod e = 2238) 2.29 RATIO Michael HumphriesCBC W/AUTO [id number] 00:00:00* Test Item Value Reference Range Interpretation Comme nts WBC (test code = 1001) 6.6 K/UL RBC (test code = 1002) 4.37 M/UL HEMOGLOBIN (test code = 1003) 12.9 G/DL HEMATOCRIT (test code = 1004) 38.8 % MCV (test code = 1005) 88.8 fL MCH (test code = 1006) 29.5 PG MCHC (test code = 1007) 33.2 G/DL RDW (test code = 1038) 12.0 % NEUTROPHILS (test code = 1008) 64.8 % LYMPHOCYTES (test code = 1010) 28.1 % MONOCYTES (test code = 1011) 5.1 % EOSINOPHILS (test code = 1012) 0.8 % BASOPHILS (test code = 1013) 0.9 % IMMATURE GRANULOCYTES (test code = 1036) 0.3 % NUCLEATED RBCS (test code = 1065) 0.0 /100WBC'S PLATELET COUNT (test code = 1015) 304 K/UL ABSOLUTE NEUTROPHILS (test c ode = 1066) 4.29 K/UL ABSOLUTE LYMPHOCYTES (test c ode = 1067) 1.86 K/UL ABSOLUTE MONOCYTES (test cod e = 1068) 0.34 K/UL ABSOLUTE EOSINOPHILS (test c ode = 1040) 0.05 K/UL ABSOLUTE BASOPHILS (test cod e = 1069) 0.06 K/UL ABS IMMATURE GRANULOCYTES (t est code = 1020) 0.02 K/UL ABS NUCLEATED RBCS (test cod e = 84136) 0.00 K/UL Michael HumphriesHEMOGLOBIN [id number] 00:00:00* Test Item Value Reference Range Interpretation Comme nts HEMOGLOBIN A1c (test code = 92652) 5.3 % Michael HumphriesCOMPREHENSIVE METABOLIC [id number] 00:00:00* Test Item Value Reference Range Interpretation Comme nts GLUCOSE (test code = 2217) 108 MG/DL BUN (test code = 2208) 6 MG/DL CREATININE (test code = 2214) 1.04 MG/DL eGFR (2020 CKD-EPI) (test co de = 08199) 79 ML/MIN/1.73 CALC BUN/CREAT (test code = 2235) 6 RATIO SODIUM (test code = 2231) 143 MEQ/L POTASSIUM (test code = 2228) 4.3 MEQ/L CHLORIDE (test code = 2215) 106 MEQ/L CARBON DIOXIDE (test code = 2206) 25 MEQ/L CALCIUM (test code = 2209) 9.4 MG/DL PROTEIN, TOTAL (test code = 2229) 7.2 G/DL ALBUMIN (test code = 2201) 4.5 G/DL CALC GLOBULIN (test code = 2240) 2.7 G/DL CALC A/G RATIO (test code = 2234) 1.7 RATIO BILIRUBIN, TOTAL (test code = 2207) <0.2 MG/DL ALKALINE PHOSPHATASE (test code = 2204) 87 U/L AST (test code = 2218) 13 U/L ALT (test code = 2219) 10 U/L [facility] [id number] 00:00:00* Test Item Value Reference Range Interpretation Comme nts WBC (test code = 1001) 9.1 K/UL RBC (test code = 1002) 4.30 M/UL HEMOGLOBIN (test code = 1003) 12.7 G/DL HEMATOCRIT (test code = 1004) 38.5 % MCV (test code = 1005) 89.5 fL MCH (test code = 1006) 29.5 PG MCHC (test code = 1007) 33.0 G/DL RDW (test code = 1038) 12.3 % NEUTROPHILS (test code = 1008) 65.4 % LYMPHOCYTES (test code = 1010) 27.0 % MONOCYTES (test code = 1011) 5.9 % EOSINOPHILS (test code = 1012) 0.9 % BASOPHILS (test code = 1013) 0.7 % IMMATURE GRANULOCYTES (test code = 1036) 0.1 % NUCLEATED RBCS (test code = 1065) 0.0 /100WBC'S PLATELET COUNT (test code = 1015) 307 K/UL ABSOLUTE NEUTROPHILS (test c ode = 1066) 5.96 K/UL ABSOLUTE LYMPHOCYTES (test c ode = 1067) 2.46 K/UL ABSOLUTE MONOCYTES (test cod e = 1068) 0.54 K/UL ABSOLUTE EOSINOPHILS (test c ode = 1040) 0.08 K/UL ABSOLUTE BASOPHILS (test cod e = 1069) 0.06 K/UL ABS IMMATURE GRANULOCYTES (t est code = 1020) 0.01 K/UL ABS NUCLEATED RBCS (test cod e = 15476) 0.00 K/UL Michael Hanna [id number] 00:00:00* Test Item Value Reference Range Interpretation Comme nts LIPASE (test code = 2057) 22 U/L Michael F [id number] 00:00:00* Test Item Value Reference Range Interpretation Comme nts AMYLASE (test code = 2204) 42 U/L Michael Hanna AustinH. PYLORI (BREATH)2022-01-26 00:00:00* Test Item Value Reference Range Interpretation Comme nts H. PYLORI (BREATH) (test cod e = 05139) NEGATIVE Michael HumphriesCOMPREHENSIVE METABOLIC [id number] 00:00:00* Test Item Value Reference Range Interpretation Comme nts GLUCOSE (test code = 7) 108 MG/DL BUN (test code = 2208) 6 MG/DL CREATININE (test code = 2214) 1.04 MG/DL eGFR (2020 CKD-EPI) (test co de = 19280) 79 ML/MIN/1.73 CALC BUN/CREAT (test code = 2235) 6 RATIO SODIUM (test code = 2231) 143 MEQ/L POTASSIUM (test code = 2228) 4.3 MEQ/L CHLORIDE (test code = 2215) 106 MEQ/L CARBON DIOXIDE (test code = 2206) 25 MEQ/L CALCIUM (test code = 2209) 9.4 MG/DL PROTEIN, TOTAL (test code = 2229) 7.2 G/DL ALBUMIN (test code = 2201) 4.5 G/DL CALC GLOBULIN (test code = 2240) 2.7 G/DL CALC A/G RATIO (test code = 2234) 1.7 RATIO BILIRUBIN, TOTAL (test code = 2207) <0.2 MG/DL ALKALINE PHOSPHATASE (test code = 2204) 87 U/L AST (test code = 2218) 13 U/L ALT (test code = 2219) 10 U/L Michael HumphriesCBC W/AUTO [id number] 00:00:00* Test Item Value Reference Range Interpretation Comme nts WBC (test code = 1001) 9.1 K/UL RBC (test code = 1002) 4.30 M/UL HEMOGLOBIN (test code = 1003) 12.7 G/DL HEMATOCRIT (test code = 1004) 38.5 % MCV (test code = 1005) 89.5 fL MCH (test code = 1006) 29.5 PG MCHC (test code = 1007) 33.0 G/DL RDW (test code = 1038) 12.3 % NEUTROPHILS (test code = 1008) 65.4 % LYMPHOCYTES (test code = 1010) 27.0 % MONOCYTES (test code = 1011) 5.9 % EOSINOPHILS (test code = 1012) 0.9 % BASOPHILS (test code = 1013) 0.7 % IMMATURE GRANULOCYTES (test code = 1036) 0.1 % NUCLEATED RBCS (test code = 1065) 0.0 /100WBC'S PLATELET COUNT (test code = 1015) 307 K/UL ABSOLUTE NEUTROPHILS (test c ode = 1066) 5.96 K/UL ABSOLUTE LYMPHOCYTES (test c ode = 1067) 2.46 K/UL ABSOLUTE MONOCYTES (test cod e = 1068) 0.54 K/UL ABSOLUTE EOSINOPHILS (test c ode = 1040) 0.08 K/UL ABSOLUTE BASOPHILS (test cod e = 1069) 0.06 K/UL ABS IMMATURE GRANULOCYTES (t est code = 1020) 0.01 K/UL ABS NUCLEATED RBCS (test cod e = 15441) 0.00 K/UL Michael [id number] 00:00:00* Test Item Value Reference Range Interpretation Comme nts LIPASE (test code = 2058) 22 U/L Michael [id number] 00:00:00* Test Item Value Reference Range Interpretation Comme nts AMYLASE (test code = 2205) 42 U/L Michael HumphriesH. PYLORI (BREATH)2022-01-26 00:00:00* Test Item Value Reference Range Interpretation Comme nts H. PYLORI (BREATH) (test cod e = 54874) NEGATIVE Michael Hanna YandelCHLAMYDIA, NAAT, [id number] 17:22:40* Test Item Value Reference Range Interpretation Comme nts CHLAMYDIA, NAAT (test code = 09284) NEGATIVE NEGATIVE IMPORTANT NO THOMAS: SEE ANNOUNCEMENT AT [email or web address] Note: Assay methodology is nucleic acid amplification by it technical architect mediated amplification (TMA) utilizing the Aptima Combo 2 Assay. GONORRHEA, NAAT, [id number] 17:22:40* Test Item Value Reference Range Interpretation Comme nts GONORRHEA, NAAT (test code = 65344) NEGATIVE NEGATIVE IMPORTANT NO THOMAS: SEE ANNOUNCEMENT AT [email or web address] Note: Assay methodology is nucleic acid amplification by it technical architect mediated amplification (TMA) utilizing the Aptima Combo 2 Assay. UNLESS OTHERWISE INDICATED, ALL TESTING PERFORMED [facility] [employer], [facility]. [address] [place] [address] TABLE GAMES SHIFT MANAGER: MATTHEW JHAVERI M.D. [place] NUMBER [id number] [facility] [place]. [id number] HIV 1/2 4TH GEN, RFLX [id number] 03:11:31* Test Item Value Reference Range Interpretation Comme nts HIV 1/2 4TH GEN, RFLX CONF ( test code = 3514) NON-REACTIVE NON-REACTIVE HEPATITIS PANEL, [id number] 03:11:31* Test Item Value Reference Range Interpretation Comme nts HEPATITIS A IgM (test code = 50530) NON-REACTIVE NON-REACTIVE HEPATITIS B CORE IgM (test code = 4644) NON-REACTIVE NON-REACTIVE HEPATITIS B SURF AG (test code = 2739) NON-REACTIVE NON-REACTIVE HEPATITIS C ANTIBODY (test code = 4675) NON-REACTIVE NON-REACTIVE INTERPRETATION HEPATITIS A: (test code = 2552) (NOTE) Hepatitis A serology shows no evidence of acute hepatitis A. INTERPRETATION HEPATITIS B: (test code = 15977) (NOTE) Hepatitis B serology shows no evidence of acute hepatitis B andno indication of exposure to hepatitis B virus in the previous domitila eight months. INTERPRETATION HEPATITIS C: (test code = 78750) (NOTE) Hepatitis C serology shows no evidence of exposure to hepatitisC virus at this time. It can take up to 12 months after exposure tothe hepatitis C virus for antibodies to become detectable in the blood in certain patients. HIV AB/AG COMBO RFLX [id number] 00:00:00* Test Item Value Reference Range Interpretation Comme nts HIV 1/2 4TH GEN, RFLX CONF ( test code = 3514) NON-REACTIVE ACUTE HEPATITIS [id number] 00:00:00* Test Item Value Reference Range Interpretation Comme nts HEPATITIS A IgM (test code = 45075) NON-REACTIVE HEPATITIS B CORE IgM (test c ode = 4644) NON-REACTIVE HEPATITIS B SURF AG (test co de = 2739) NON-REACTIVE HEPATITIS C ANTIBODY (test c ode = 4675) NON-REACTIVE INTERPRETATION HEPATITIS A: (test code = 2552) (NOTE) INTERPRETATION HEPATITIS B: (test code = 70718) (NOTE) INTERPRETATION HEPATITIS C: (test code = 74316) (NOTE) CHLAMYDIA, AMPLIFIED, [id number] 00:00:00* Test Item Value Reference Range Interpretation Comme nts CHLAMYDIA, NAAT (test code = 14080) NEGATIVE GC, AMPLIFIED, [id number] 00:00:00* Test Item Value Reference Range Interpretation Comme nts GONORRHEA, NAAT (test code = 15091) NEGATIVE HIV AB/AG COMBO RFLX [id number] 00:00:00* Test Item Value Reference Range Interpretation Comme nts HIV 1/2 4TH GEN, RFLX CONF ( test code = 3514) NON-REACTIVE HIV AB/AG COMBO RFLX [id number] 00:00:00* Test Item Value Reference Range Interpretation Comme nts HIV 1/2 4TH GEN, RFLX CONF ( test code = 3514) NON-REACTIVE ACUTE HEPATITIS [id number] 00:00:00* Test Item Value Reference Range Interpretation Comme nts HEPATITIS A IgM (test code = 71799) NON-REACTIVE HEPATITIS B CORE IgM (test c ode = 4644) NON-REACTIVE HEPATITIS B SURF AG (test co de = 2739) NON-REACTIVE HEPATITIS C ANTIBODY (test c ode = 4675) NON-REACTIVE INTERPRETATION HEPATITIS A: (test code = 2552) (NOTE) INTERPRETATION HEPATITIS B: (test code = 73172) (NOTE) INTERPRETATION HEPATITIS C: (test code = 93599) (NOTE) ACUTE HEPATITIS [id number] 00:00:00* Test Item Value Reference Range Interpretation Comme nts HEPATITIS A IgM (test code = 96494) NON-REACTIVE HEPATITIS B CORE IgM (test c ode = 4644) NON-REACTIVE HEPATITIS B SURF AG (test co de = 2739) NON-REACTIVE HEPATITIS C ANTIBODY (test c ode = 4675) NON-REACTIVE INTERPRETATION HEPATITIS A: (test code = 2552) (NOTE) INTERPRETATION HEPATITIS B: (test code = 28390) (NOTE) INTERPRETATION HEPATITIS C: (test code = 18267) (NOTE) CHLAMYDIA, AMPLIFIED, [id number] 00:00:00* Test Item Value Reference Range Interpretation Comme nts CHLAMYDIA, NAAT (test code = 36455) NEGATIVE CHLAMYDIA, AMPLIFIED, [id number] 00:00:00* Test Item Value Reference Range Interpretation Comme nts CHLAMYDIA, NAAT (test code = 98959) NEGATIVE GC, AMPLIFIED, [id number] 00:00:00* Test Item Value Reference Range Interpretation Comme nts GONORRHEA, NAAT (test code = 54622) NEGATIVE GC, AMPLIFIED, [id number] 00:00:00* Test Item Value Reference Range Interpretation Comme nts GONORRHEA, NAAT (test code = 25115) NEGATIVE HIV AB/AG COMBO RFLX [id number] 00:00:00* Test Item Value Reference Range Interpretation Comme nts HIV 1/2 4TH GEN, RFLX CONF ( test code = 3514) NON-REACTIVE Michael HumphriesACUTE HEPATITIS [id number] 00:00:00* Test Item Value Reference Range Interpretation Comme nts HEPATITIS A IgM (test code = 29990) NON-REACTIVE HEPATITIS B CORE IgM (test c ode = 4644) NON-REACTIVE HEPATITIS B SURF AG (test co de = 2739) NON-REACTIVE HEPATITIS C ANTIBODY (test c ode = 4675) NON-REACTIVE INTERPRETATION HEPATITIS A: (test code = 2552) (NOTE) INTERPRETATION HEPATITIS B: (test code = 52501) (NOTE) INTERPRETATION HEPATITIS C: (test code = 75221) (NOTE) Michael Hanna YandelCHLAMYDIA, AMPLIFIED, [id number] 00:00:00* Test Item Value Reference Range Interpretation Comme nts CHLAMYDIA, NAAT (test code = 12333) NEGATIVE Michael HumphriesGC, AMPLIFIED, [id number] 00:00:00* Test Item Value Reference Range Interpretation Comme nts GONORRHEA, NAAT (test code = 23923) NEGATIVE Michael HumphriesHIV AB/AG COMBO RFLX [id number] 00:00:00* Test Item Value Reference Range Interpretation Comme nts HIV 1/2 4TH GEN, RFLX CONF ( test code = 3514) NON-REACTIVE Michael HumphriesACUTE HEPATITIS [id number] 00:00:00* Test Item Value Reference Range Interpretation Comme nts HEPATITIS A IgM (test code = 75028) NON-REACTIVE HEPATITIS B CORE IgM (test c ode = 4644) NON-REACTIVE HEPATITIS B SURF AG (test co de = 2739) NON-REACTIVE HEPATITIS C ANTIBODY (test c ode = 4675) NON-REACTIVE INTERPRETATION HEPATITIS A: (test code = 2552) (NOTE) INTERPRETATION HEPATITIS B: (test code = 15310) (NOTE) INTERPRETATION HEPATITIS C: (test code = 70717) (NOTE) Michael HmuphriesCHLAMYDIA, AMPLIFIED, [id number] 00:00:00* Test Item Value Reference Range Interpretation Comme nts CHLAMYDIA, NAAT (test code = 59536) NEGATIVE Michael HumhpriesGC, AMPLIFIED, [id number] 00:00:00* Test Item Value Reference Range Interpretation Comme nts GONORRHEA, NAAT (test code = 25616) NEGATIVE Michael HumphriesLIPID [id number] 03:46:49* Test Item Value Reference Range Interpretation Comme nts CHOLESTEROL (test code = 2210) 162 MG/DL <200 TRIGLYCERIDES (test code = 2232) 166 MG/DL <150 H HDL CHOLESTEROL (test code = 2220) 47 MG/DL >39 CALC LDL CHOL (test code = 2237) 89 MG/DL <100 NOTE: CALCULATED LDL IS BASED ON TAMIKA-LEE METHOD WHICHINCLUDES ADJUSTABLE TRIGLYCERIDE:VLDL CHOLESTEROL RATIO.THIS FACTOR VARIES BY MEASURED TRIGLYCERIDE AND NON-HDLCHOLESTEROL CONCENTRATIONS WITH INCREASED CALCULATED LDL SEENIN HIGHER TRIGLYCERIDE OR LOWER NON-HDL SPECIMENS. FOR MOREINFORMATION, SEE CLIENT ANNOUNCEMENT AT [email or web address] RATIO LDL/HDL (test code = 2238) 1.89 RATIO <3.22 COMPREHENSIVE METABOLIC [id number] 03:46:49* Test Item Value Reference Range Interpretation Comme nts GLUCOSE (test code = 7) 94 MG/DL 70-99 BUN (test code = 2207) 8 MG/DL 6-20 CREATININE (test code = 221) 0.63 MG/DL 0.50-1.10 eGFR (2020 CKD-EPI) (test code = 52859) 131 ML/MIN/1.73 >60 CALC BUN/CREAT (test code = 2234) 13 RATIO 6-28 SODIUM (test code = 223) 141 MEQ/L 133-146 POTASSIUM (test code = 222) 4.5 MEQ/L 3.5-5.4 CHLORIDE (test code = 2214) 103 MEQ/L 95-107 CARBON DIOXIDE (test code = 2205) 25 MEQ/L 19-31 CALCIUM (test code = 220) 10.1 MG/DL 8.5-10.5 PROTEIN, TOTAL (test code = 2228) 7.5 G/DL 6.1-8.3 ALBUMIN (test code = 2200) 4.8 G/DL 3.5-5.2 CALC GLOBULIN (test code = 2240) 2.7 G/DL 2.1-3.7 CALC A/G RATIO (test code = 2233) 1.8 RATIO 1.0-2.6 BILIRUBIN, TOTAL (test code = 2206) <0.2 MG/DL See_Comment [Automated me ssage] The system which generated this result transmitted reference range: <=1.2. The reference range was not used to interpret this result as normal/abnormal. ALKALINE PHOSPHATASE (test code = 220) 95 U/L 41-120 AST (test code = 2218) 22 U/L 9-40 ALT (test code = 2219) 27 U/L 5-40 UNLESS OTHERWISE INDICATED, ALL TESTING PERFORMED [facility] [address] [place] [phone] TABLE GAMES SHIFT MANAGER: MATTHEW JHAVERI M.D. CLIA NUMBER [id number] [facility] [place]. [id number] CBC W/AUTO DIFF WITH [id number] 03:43:18* Test Item Value Reference Range Interpretation Comme nts WBC (test code = 1001) 7.8 K/UL 3.5-11.0 RBC (test code = 1002) 4.60 M/UL 3.80-5.40 HEMOGLOBIN (test code = 1003) 13.8 G/DL 11.5-15.5 HEMATOCRIT (test code = 1004) 42.2 % 34.0-45.0 MCV (test code = 1005) 91.7 fL 80.0-99.0 MCH (test code = 1006) 30.0 PG 25.0-33.0 MCHC (test code = 1007) 32.7 G/DL 31.0-36.0 RDW (test code = 1038) 12.9 % 11.5-15.0 NEUTROPHILS (test code = 1008) 66.8 % LYMPHOCYTES (test code = 1010) 26.2 % MONOCYTES (test code = 1011) 4.7 % EOSINOPHILS (test code = 1012) 1.1 % BASOPHILS (test code = 1013) 0.9 % IMMATURE GRANULOCYTES (test code = 1036) 0.3 % NUCLEATED RBCS (test code = 1065) 0.0 /100 WBC'S See_Comment [Automated messa ge] The system which generated this result transmitted reference range: 0.0. The reference range was not used to interpret this result as normal/abnormal. PLATELET COUNT (test code = 1015) 273 K/UL 130-400 ABSOLUTE NEUTROPHILS (test code = 1066) 5.23 K/UL 1.50-7.50 ABSOLUTE LYMPHOCYTES (test code = 1067) 2.05 K/UL 1.00-4.00 ABSOLUTE MONOCYTES (test code = 1068) 0.37 K/UL 0.20-1.00 ABSOLUTE EOSINOPHILS (test code = 1040) 0.09 K/UL 0.00-0.50 ABSOLUTE BASOPHILS (test code = 1069) 0.07 K/UL 0.00-0.20 ABS IMMATURE GRANULOCYTES (test code = 1020) 0.02 K/UL 0.00-0.10 ABS NUCLEATED RBCS (test code = 52033) 0.00 K/UL 0.00-0.11 CBC W/AUTO [id number] 00:00:00* Test Item Value Reference Range Interpretation Comme nts WBC (test code = 1001) 7.8 K/UL [...] = 1013) 0.9 % IMMATURE GRANULOCYTES (test code = 1036) 0.3 % NUCLEATED RBCS (test code = 1065) 0.0 /100WBC'S PLATELET COUNT (test code = 1015) 273 K/UL ABSOLUTE NEUTROPHILS (test c ode = 1066) 5.23 K/UL ABSOLUTE LYMPHOCYTES (test c ode = 1067) 2.05 K/UL ABSOLUTE MONOCYTES (test cod e = 1068) 0.37 K/UL ABSOLUTE EOSINOPHILS (test c ode = 1040) 0.09 K/UL ABSOLUTE BASOPHILS (test cod e = 1069) 0.07 K/UL ABS IMMATURE GRANULOCYTES (t est code = 1020) 0.02 K/UL ABS NUCLEATED RBCS (test cod e = 14687) 0.00 K/UL CBC W/AUTO [id number] 00:00:00* Test Item Value Reference Range Interpretation Comme nts WBC (test code = 1001) 7.8 K/UL [...] = 1013) 0.9 % IMMATURE GRANULOCYTES (test code = 1036) 0.3 % NUCLEATED RBCS (test code = 1065) 0.0 /100WBC'S PLATELET COUNT (test code = 1015) 273 K/UL ABSOLUTE NEUTROPHILS (test c ode = 1066) 5.23 K/UL ABSOLUTE LYMPHOCYTES (test c ode = 1067) 2.05 K/UL ABSOLUTE MONOCYTES (test cod e = 1068) 0.37 K/UL ABSOLUTE EOSINOPHILS (test c ode = 1040) 0.09 K/UL ABSOLUTE BASOPHILS (test cod e = 1069) 0.07 K/UL ABS IMMATURE GRANULOCYTES (t est code = 1020) 0.02 K/UL ABS NUCLEATED RBCS (test cod e = 83862) 0.00 K/UL LIPID [id number] 00:00:00* Test Item Value Reference Range Interpretation Comme nts CHOLESTEROL (test code = 2210) 162 MG/DL TRIGLYCERIDES (test code = 2232) 166 MG/DL HDL CHOLESTEROL (test code = 2220) 47 MG/DL CALC LDL CHOL (test code = 2237) 89 MG/DL RISK RATIO LDL/HDL (test cod e = 2238) 1.89 RATIO COMPREHENSIVE METABOLIC [id number] 00:00:00* Test Item Value Reference Range Interpretation Comme nts GLUCOSE (test code = 2217) 94 MG/DL BUN (test code = 2208) 8 MG/DL CREATININE (test code = 2214) 0.63 MG/DL eGFR (2020 CKD-EPI) (test code = 70996) 131 ML/MIN/1.73 CALC BUN/CREAT (test code = 2235) 13 RATIO SODIUM (test code = 2231) 141 MEQ/L POTASSIUM (test code = 2228) 4.5 MEQ/L CHLORIDE (test code = 2215) 103 MEQ/L CARBON DIOXIDE (test code = 2206) 25 MEQ/L CALCIUM (test code = 2209) 10.1 MG/DL PROTEIN, TOTAL (test code = 2229) 7.5 G/DL ALBUMIN (test code = 2201) 4.8 G/DL CALC GLOBULIN (test code = 2240) 2.7 G/DL CALC A/G RATIO (test code = 2234) 1.8 RATIO BILIRUBIN, TOTAL (test code = 2207) <0.2 MG/DL ALKALINE PHOSPHATASE (test code = 2204) 95 U/L AST (test code = 2218) 22 U/L ALT (test code = 2219) 27 U/L CBC W/AUTO [id number] 00:00:00* Test Item Value Reference Range Interpretation Comme nts WBC (test code = 1001) 7.8 K/UL [...] = 1013) 0.9 % IMMATURE GRANULOCYTES (test code = 1036) 0.3 % NUCLEATED RBCS (test code = 1065) 0.0 /100WBC'S PLATELET COUNT (test code = 1015) 273 K/UL ABSOLUTE NEUTROPHILS (test c ode = 1066) 5.23 K/UL ABSOLUTE LYMPHOCYTES (test c ode = 1067) 2.05 K/UL ABSOLUTE MONOCYTES (test cod e = 1068) 0.37 K/UL ABSOLUTE EOSINOPHILS (test c ode = 1040) 0.09 K/UL ABSOLUTE BASOPHILS (test cod e = 1069) 0.07 K/UL ABS IMMATURE GRANULOCYTES (t est code = 1020) 0.02 K/UL ABS NUCLEATED RBCS (test cod e = 63714) 0.00 K/UL CBC W/AUTO [id number] 00:00:00* Test Item Value Reference Range Interpretation Comme nts WBC (test code = 1001) 7.8 K/UL [...] = 1013) 0.9 % IMMATURE GRANULOCYTES (test code = 1036) 0.3 % NUCLEATED RBCS (test code = 1065) 0.0 /100WBC'S PLATELET COUNT (test code = 1015) 273 K/UL ABSOLUTE NEUTROPHILS (test c ode = 1066) 5.23 K/UL ABSOLUTE LYMPHOCYTES (test c ode = 1067) 2.05 K/UL ABSOLUTE MONOCYTES (test cod e = 1068) 0.37 K/UL ABSOLUTE EOSINOPHILS (test c ode = 1040) 0.09 K/UL ABSOLUTE BASOPHILS (test cod e = 1069) 0.07 K/UL ABS IMMATURE GRANULOCYTES (t est code = 1020) 0.02 K/UL ABS NUCLEATED RBCS (test cod e = 86560) 0.00 K/UL CBC W/AUTO [id number] 00:00:00* Test Item Value Reference Range Interpretation Comme nts WBC (test code = 1001) 7.8 K/UL [...] = 1013) 0.9 % IMMATURE GRANULOCYTES (test code = 1036) 0.3 % NUCLEATED RBCS (test code = 1065) 0.0 /100WBC'S PLATELET COUNT (test code = 1015) 273 K/UL ABSOLUTE NEUTROPHILS (test c ode = 1066) 5.23 K/UL ABSOLUTE LYMPHOCYTES (test c ode = 1067) 2.05 K/UL ABSOLUTE MONOCYTES (test cod e = 1068) 0.37 K/UL ABSOLUTE EOSINOPHILS (test c ode = 1040) 0.09 K/UL ABSOLUTE BASOPHILS (test cod e = 1069) 0.07 K/UL ABS IMMATURE GRANULOCYTES (t est code = 1020) 0.02 K/UL ABS NUCLEATED RBCS (test cod e = 43796) 0.00 K/UL LIPID [id number] 00:00:00* Test Item Value Reference Range Interpretation Comme nts CHOLESTEROL (test code = 2210) 162 MG/DL TRIGLYCERIDES (test code = 2232) 166 MG/DL HDL CHOLESTEROL (test code = 2220) 47 MG/DL CALC LDL CHOL (test code = 2237) 89 MG/DL RISK RATIO LDL/HDL (test cod e = 2238) 1.89 RATIO LIPID [id number] 00:00:00* Test Item Value Reference Range Interpretation Comme nts CHOLESTEROL (test code = 2210) 162 MG/DL TRIGLYCERIDES (test code = 2232) 166 MG/DL HDL CHOLESTEROL (test code = 2220) 47 MG/DL CALC LDL CHOL (test code = 2237) 89 MG/DL RISK RATIO LDL/HDL (test cod e = 2238) 1.89 RATIO COMPREHENSIVE METABOLIC [id number] 00:00:00* Test Item Value Reference Range Interpretation Comme nts GLUCOSE (test code = 2217) 94 MG/DL BUN (test code = 2208) 8 MG/DL CREATININE (test code = 2214) 0.63 MG/DL eGFR (2020 CKD-EPI) (test code = 79933) 131 ML/MIN/1.73 CALC BUN/CREAT (test code = 2235) 13 RATIO SODIUM (test code = 2231) 141 MEQ/L POTASSIUM (test code = 2228) 4.5 MEQ/L CHLORIDE (test code = 2215) 103 MEQ/L CARBON DIOXIDE (test code = 2206) 25 MEQ/L CALCIUM (test code = 2209) 10.1 MG/DL PROTEIN, TOTAL (test code = 2229) 7.5 G/DL ALBUMIN (test code = 2201) 4.8 G/DL CALC GLOBULIN (test code = 2240) 2.7 G/DL CALC A/G RATIO (test code = 2234) 1.8 RATIO BILIRUBIN, TOTAL (test code = 2207) <0.2 MG/DL ALKALINE PHOSPHATASE (test code = 2204) 95 U/L AST (test code = 2218) 22 U/L ALT (test code = 2219) 27 U/L COMPREHENSIVE METABOLIC [id number] 00:00:00* Test Item Value Reference Range Interpretation Comme nts GLUCOSE (test code = 2217) 94 MG/DL BUN (test code = 2208) 8 MG/DL CREATININE (test code = 2214) 0.63 MG/DL eGFR (2020 CKD-EPI) (test code = 69367) 131 ML/MIN/1.73 CALC BUN/CREAT (test code = 2235) 13 RATIO SODIUM (test code = 2231) 141 MEQ/L POTASSIUM (test code = 2228) 4.5 MEQ/L CHLORIDE (test code = 2215) 103 MEQ/L CARBON DIOXIDE (test code = 2206) 25 MEQ/L CALCIUM (test code = 2209) 10.1 MG/DL PROTEIN, TOTAL (test code = 2229) 7.5 G/DL ALBUMIN (test code = 2201) 4.8 G/DL CALC GLOBULIN (test code = 2240) 2.7 G/DL CALC A/G RATIO (test code = 2234) 1.8 RATIO BILIRUBIN, TOTAL (test code = 2207) <0.2 MG/DL ALKALINE PHOSPHATASE (test code = 2204) 95 U/L AST (test code = 2218) 22 U/L ALT (test code = 2219) 27 U/L CBC W/AUTO [id number] 00:00:00* Test Item Value Reference Range Interpretation Comme nts WBC (test code = 1001) 7.8 K/UL [...] = 1013) 0.9 % IMMATURE GRANULOCYTES (test code = 1036) 0.3 % NUCLEATED RBCS (test code = 1065) 0.0 /100WBC'S PLATELET COUNT (test code = 1015) 273 K/UL ABSOLUTE NEUTROPHILS (test c ode = 1066) 5.23 K/UL ABSOLUTE LYMPHOCYTES (test c ode = 1067) 2.05 K/UL ABSOLUTE MONOCYTES (test cod e = 1068) 0.37 K/UL ABSOLUTE EOSINOPHILS (test c ode = 1040) 0.09 K/UL ABSOLUTE BASOPHILS (test cod e = 1069) 0.07 K/UL ABS IMMATURE GRANULOCYTES (t est code = 1020) 0.02 K/UL ABS NUCLEATED RBCS (test cod e = 99196) 0.00 K/UL Michael Hanna YandelLIPID [id number] 00:00:00* Test Item Value Reference Range Interpretation Comme nts CHOLESTEROL (test code = 2210) 162 MG/DL TRIGLYCERIDES (test code = 2232) 166 MG/DL HDL CHOLESTEROL (test code = 2220) 47 MG/DL CALC LDL CHOL (test code = 2237) 89 MG/DL RISK RATIO LDL/HDL (test cod e = 2238) 1.89 RATIO Michael HumphriesCOMPREHENSIVE METABOLIC [id number] 00:00:00* Test Item Value Reference Range Interpretation Comme nts GLUCOSE (test code = 2217) 94 MG/DL BUN (test code = 2208) 8 MG/DL CREATININE (test code = 2214) 0.63 MG/DL eGFR (2020 CKD-EPI) (test code = 83043) 131 ML/MIN/1.73 CALC BUN/CREAT (test code = 2235) 13 RATIO SODIUM (test code = 2231) 141 MEQ/L POTASSIUM (test code = 2228) 4.5 MEQ/L CHLORIDE (test code = 2215) 103 MEQ/L CARBON DIOXIDE (test code = 2206) 25 MEQ/L CALCIUM (test code = 2209) 10.1 MG/DL PROTEIN, TOTAL (test code = 2229) 7.5 G/DL ALBUMIN (test code = 2201) 4.8 G/DL CALC GLOBULIN (test code = 2240) 2.7 G/DL CALC A/G RATIO (test code = 2234) 1.8 RATIO BILIRUBIN, TOTAL (test code = 2207) <0.2 MG/DL ALKALINE PHOSPHATASE (test code = 2204) 95 U/L AST (test code = 2218) 22 U/L ALT (test code = 2219) 27 U/L Michael HumphriesCBC W/AUTO [id number] 00:00:00* Test Item Value Reference Range Interpretation Comme nts WBC (test code = 1001) 7.8 K/UL [...] = 1013) 0.9 % IMMATURE GRANULOCYTES (test code = 1036) 0.3 % NUCLEATED RBCS (test code = 1065) 0.0 /100WBC'S PLATELET COUNT (test code = 1015) 273 K/UL ABSOLUTE NEUTROPHILS (test c ode = 1066) 5.23 K/UL ABSOLUTE LYMPHOCYTES (test c ode = 1067) 2.05 K/UL ABSOLUTE MONOCYTES (test cod e = 1068) 0.37 K/UL ABSOLUTE EOSINOPHILS (test c ode = 1040) 0.09 K/UL ABSOLUTE BASOPHILS (test cod e = 1069) 0.07 K/UL ABS IMMATURE GRANULOCYTES (t est code = 1020) 0.02 K/UL ABS NUCLEATED RBCS (test cod e = 32124) 0.00 K/UL Michael HumphriesLIPID [id number] 00:00:00* Test Item Value Reference Range Interpretation Comme nts CHOLESTEROL (test code = 2210) 162 MG/DL TRIGLYCERIDES (test code = 2232) 166 MG/DL HDL CHOLESTEROL (test code = 2220) 47 MG/DL CALC LDL CHOL (test code = 2237) 89 MG/DL RISK RATIO LDL/HDL (test cod e = 2238) 1.89 RATIO Michael HumphriesCOMPREHENSIVE METABOLIC [id number] 00:00:00* Test Item Value Reference Range Interpretation Comme nts GLUCOSE (test code = 2217) 94 MG/DL BUN (test code = 2208) 8 MG/DL CREATININE (test code = 2214) 0.63 MG/DL eGFR (2020 CKD-EPI) (test code = 49177) 131 ML/MIN/1.73 CALC BUN/CREAT (test code = 2235) 13 RATIO SODIUM (test code = 2231) 141 MEQ/L POTASSIUM (test code = 2228) 4.5 MEQ/L CHLORIDE (test code = 2215) 103 MEQ/L CARBON DIOXIDE (test code = 2206) 25 MEQ/L CALCIUM (test code = 2209) 10.1 MG/DL PROTEIN, TOTAL (test code = 222) 7.5 G/DL ALBUMIN (test code = 220) 4.8 G/DL CALC GLOBULIN (test code = 2240) 2.7 G/DL CALC A/G RATIO (test code = 2234) 1.8 RATIO BILIRUBIN, TOTAL (test code = 2207) <0.2 MG/DL ALKALINE PHOSPHATASE (test code = 2204) 95 U/L AST (test code = 2218) 22 U/L ALT (test code = 2219) 27 U/L Michael HumphriesROSEMARYLTEDYTA, [id number] 09:34:28SPECIMEN NUMBER: [id number] CULTURE, URINE SPECIMEN NUMBER: [id number] SPECIMEN COMMENT: URINE SOURCE: URINE REPORT STATUS: FINAL FINAL REPORT: 05/21/2021 >100,000 CFU/ML UROGENITAL EMILE PRESENT NOCOMMON PATHOGENS UNLESS OTHERWISE INDICATED, ALL TESTING PERFORMED [facility] [address] [place] [address] TABLE GAMES SHIFT MANAGER: MATTHEW JHAVERI M.D. CLIA NUMBER [id number] [place]. [id number], [id number] 00:00:00* Test Item Value Reference Range Interpretation Comme nts CULTURE, URINE (test code = 82362) SPECIMEN NUMBER: [id number] CULTURE, [id number] 00:00:00* Test Item Value Reference Range Interpretation Comme nts CULTURE, URINE (test code = 34899) SPECIMEN NUMBER: [id number] CULTURE, [id number] 00:00:00* Test Item Value Reference Range Interpretation Comme nts CULTURE, URINE (test code = 53237) SPECIMEN NUMBER: [id number] CULTURE, [id number] 00:00:00* Test Item Value Reference Range Interpretation Comme nts CULTURE, URINE (test code = 01851) SPECIMEN NUMBER: [id number] Michael HumphriesCULTURE, [id number] 00:00:00* Test Item Value Reference Range Interpretation Comme nts CULTURE, URINE (test code = 47156) SPECIMEN NUMBER: [id number] Michael Humphries Albert Date/Time Note Provider Source 2023-08-13 00:00:00 [id number] T00:00:00+ + +| Plan Activity | Plan Date |+ + +| Recommend healthy diet and exercise. | 2021-03-23 |+ + +| 22 Y/O WAE | 2021-03-23 |+ + +| See above plan. | 2021-03-23 |+ + +| Discontinue fluoxetine and hydroxyzine | 2021-04-18 || Start escitalopram 10 mg 1 tablet by mouth daily | || Start propranolol 10 mg 1 tablet by mouth TID as needed for anxiety | || Discussed importance of adherence to medication. Discussed taking medication at | || the same time every day and use of alarm clock or phone reminder to promote | || adherence. | || Will follow-up in 2 weeks. | || ED precautions. | |+ + +| Cetirizine 10 mg 1 capsule by mouth daily | 2021-04-18 || avoid allergy triggers | |+ + +| Appears to be improving/resolving | 2021-04-18 || Monitor for now | |+ + +| UA- trace leukocytes | 2021-05-18 || Urine cx | || Rapid strep test- negative. | || dicyclomine 20 mg tablet tid prn abd pain | || s/e of meds discussed with pt | |+ + +| UA- small leukocytes | 2021-05-18 || Urine cx | || macrobid take as directed | || s/e of meds discussed | |+ + +| Medical records from Dr. Rolf Leon - GI specialist | 2021-05-18 |+ + +| BASELINE EKG | 2021-06-20 || PT is made aware of SOB is severe, pt is advised to go to ER | || ER precautions , | || Pt was on generic lexapro for a month ago- rare side effect of shortness of | || breath | |+ + +| LIPID-NF | 2023-07-26 |+ + +| CBC | 2021-06-20 |+ + +| CMP | 2021-06-20 || A1C | |+ + +| - Gonorrhea and chlamydia tests ordered, results pending | 2021-07-04 |+ + +| - HIV test ordered, results pending | 2021-07-04 |+ + +| - Hepatitis panel ordered, results pending | 2021-07-04 |+ + +| COVID + | 2021-09-22 || quarantine--> Follow CDC guidelines | || Symptomatic care | || refill albuterol inhaler | || RTC if symptoms worsen or persist | |+ + +| H pylori ordered, pending results | 2022-01-24 |+ + +| Possible anxiety related | 2022-01-24 || EKG SR | |+ + +| FLU SHOT | 2022-05-22 || VIS FORM provided. | || s/e due to administration of vaccines explained to pt | |+ + +| MRI L spine without contrast 07/12/2022--- Disc protrusion L4-L5 and L5-S1. AT | 2022-05-24 || L4-L5, mild b/l facet effusions and capsular hypertrophy contribute to mild b/l | || neural foraminal narrowing. Minimal narrowing along the left lateral recess. | || | || will refer to orthopedics for further guidance | || Diff diagnosis: meralgia paresthetica; lumbar strain; degenerative disc dz; | || spinal stenosis; infection; visceral disease | |+ + +| UPT-negative | 2022-07-27 || refill GEMMILY 1-20 MG-MCG(24) qd | || s/e of meds discussed | || No contraindications to med | |+ + +| MRI L spine without contrast 07/12/2022--- Disc protrusion L4-L5 and L5-S1. AT | 2022-07-27 || L4-L5, mild b/l facet effusions and capsular hypertrophy contribute to mild b/l | || neural foraminal narrowing. Minimal narrowing along the left lateral recess. | || | || will refer to orthopedics for further guidance | |+ + +| MRI L spine without contrast 07/12/2022--- Disc protrusion L4-L5 and L5-S1. AT | 2022-07-27 || L4-L5, mild b/l facet effusions and capsular hypertrophy contribute to mild b/l | || neural foraminal narrowing. Minimal narrowing along the left lateral recess. | || | || will refer to orthopedics for further guidance | |+ + +| MRI L spine without contrast 07/12/2022--- Disc protrusion L4-L5 and L5-S1. AT | 2022-07-27 || L4-L5, mild b/l facet effusions and capsular hypertrophy contribute to mild b/l | || neural foraminal narrowing. Minimal narrowing along the left lateral recess. | || | || will refer to orthopedics for further guidance | |+ + +| Naproxen take as directed | 2022-08-29 || s/e of meds discussed | |+ + +| possible 2/2 allergies - given presentation will order CT | 2022-08-29 || -CT scan of head with and without contrast - STAT | || -RX Cetirizine | || take OTC Tylenol for pain | || ER precautions | |+ + +| weight and height disproportionate | 2023-07-26 || Obesity Class II | || Therapeutic lifestyle changes required | |+ + +| Recommend daily exercise for 30-40 minutes a day as part of a healthy lifestyle | 2023-07-26 || like isometric exercises, weights, cycling, fast paced walking | |+ + +| Recommend healthy eating with foods from a variety of food groups. Encourage to | 2023-07-26 || eat more vegetables like kale, spinach, colorful vegetables and appropriate | || portion sizes, and few sugary snacks/drinks/sodas. | || Avoid high fructose corn syrup, drink at least 64 ounces of water a day. | |+ + +| UA | 2022-10-09 || URINE CX | || macrobid 100 mg bid x 5 days | || s/e of meds discussed with pt | |+ + +| refer to ER | 2022-10-09 || CT scan of head with and without contrast STAT | || ER precautions | || PT will f/u after ER visit | |+ + +| refer to ER | 2022-10-09 || CT scan of head with and without contrast STAT | || ER precautions | || PT will f/u after ER visit | |+ + +| blurry vision yesterday | 2022-10-09 || refer to ER | || CT scan of head with and without contrast STAT | || ER precautions | || PT will f/u after ER visit | |+ + +| Auto-Add by COVID19 Screen Import | 2023-01-23 |+ + +| strep test- negative | 2023-02-16 || recommend warm salt water gargles, throat lozenges, sprays prn | || acetaminophen prn | || soft diet, water with electrolyte replacement like gatorade zero | || RTO if symptoms do not improve | |+ + +| Refer to ENT | 2023-02-16 |+ + +| CBC, CMP | 2023-07-26 || Anticipatory guidance as discussed. Growth chart given. Routine well visits. | |+ + +| Labs: CMP, TSH, b12, ESR | 2023-08-13 |+ + +[id number] of TreatmentLNHENRY FORD [facility] PLANTPL[facility] H[facility]PITALFA|[id number] for patient b[id number] Section NarrativeNARRATIVEFormatted C-CDA narrative textSRUSTchecotish Valentine [facility]2024-06-03T00:00:00 Michael HannaJorge [facility] 2023-07-26 00:00:00 [id number] T00:00:00+ + +| Plan Activity | Plan Date |+ + +| Recommend healthy diet and exercise. | 2021-03-23 |+ + +| 22 Y/O WAE | 2021-03-23 |+ + +| See above plan. | 2021-03-23 |+ + +| Discontinue fluoxetine and hydroxyzine | 2021-04-18 || Start escitalopram 10 mg 1 tablet by mouth daily | || Start propranolol 10 mg 1 tablet by mouth TID as needed for anxiety | || Discussed importance of adherence to medication. Discussed taking medication at | || the same time every day and use of alarm clock or phone reminder to promote | || adherence. | || Will follow-up in 2 weeks. | || ED precautions. | |+ + +| Cetirizine 10 mg 1 capsule by mouth daily | 2021-04-18 || | || Avoid known triggers | || Follow-up as needed | |+ + +| Appears to be improving/resolving | 2021-04-18 || Monitor for now | |+ + +| UA- trace leukocytes | 2021-05-18 || Urine cx | || Rapid strep test- negative. | || dicyclomine 20 mg tablet tid prn abd pain | || s/e of meds discussed with pt | |+ + +| UA- small leukocytes | 2021-05-18 || Urine cx | || macrobid take as directed | || s/e of meds discussed | |+ + +| Medical records from Dr. Rolf Leon - [facility] specialist | 2021-05-18 |+ + +| BASELINE EKG | 2021-06-20 || PT is made aware of SOB is severe, pt is advised to go to ER | || ER precautions , | || Pt was on generic lexapro for a month ago- rare side effect of shortness of | || breath | |+ + +| LIPID-NF | 2023-07-26 |+ + +| CBC | 2021-06-20 |+ + +| CMP | 2021-06-20 || A1C | |+ + +| - Gonorrhea and chlamydia tests ordered, results pending 2021-07-04 |+ + +| - HIV test ordered, results pending 2021-07-04 |+ + +| - Hepatitis panel ordered, results pending | 2021-07-04 |+ + +| COVID + | 2021-09-22 || quarantine--> Follow CDC guidelines | || Symptomatic care | || refill albuterol inhaler | || RTC if symptoms worsen or persist | |+ + +| H pylori ordered, pending results | 2022-01-24 |+ + +| Possible anxiety related | 2022-01-24 || EKG SR | |+ + +| FLU SHOT | 2022-05-22 || VIS FORM provided. | || s/e due to administration of vaccines explained to pt | |+ + +| MRI L spine without contrast 07/12/2022--- Disc protrusion L4-L5 and L5-S1. AT | 2022-05-24 || L4-L5, mild b/l facet effusions and capsular hypertrophy contribute to mild b/l | || neural foraminal narrowing. Minimal narrowing along the left lateral recess. | || | || will refer to orthopedics for further guidance | || Diff diagnosis: meralgia paresthetica; lumbar strain; degenerative disc dz; | || spinal stenosis; infection; visceral disease | |+ + +| UPT-negative | 2022-07-27 || refill GEMMILY 1-20 MG-MCG(24) qd | || s/e of meds discussed | || No contraindications to med | |+ + +| MRI L spine without contrast 07/12/2022--- Disc protrusion L4-L5 and L5-S1. AT | 2022-07-27 || L4-L5, mild b/l facet effusions and capsular hypertrophy contribute to mild b/l | || neural foraminal narrowing. Minimal narrowing along the left lateral recess. | || | || will refer to orthopedics for further guidance | |+ + +| MRI L spine without contrast 07/12/2022--- Disc protrusion L4-L5 and L5-S1. AT | 2022-07-27 || L4-L5, mild b/l facet effusions and capsular hypertrophy contribute to mild b/l | || neural foraminal narrowing. Minimal narrowing along the left lateral recess. | || | || will refer to orthopedics for further guidance | |+ + +| MRI L spine without contrast 07/12/2022--- Disc protrusion L4-L5 and L5-S1. AT | 2022-07-27 || L4-L5, mild b/l facet effusions and capsular hypertrophy contribute to mild b/l | || neural foraminal narrowing. Minimal narrowing along the left lateral recess. | || | || will refer to orthopedics for further guidance | |+ + +| Naproxen take as directed | 2022-08-29 || s/e of meds discussed | |+ + +| refer to ER | 2022-08-29 || CT scan of head with and without contrast STAT | || ER precautions | || PT will f/u after ER visit | |+ + +| weight and height disproportionate | 2023-07-26 || Obesity Class II | || Therapeutic lifestyle changes required | |+ + +| Recommend daily exercise for 30-40 minutes a day as part of a healthy lifestyle | 2023-07-26 || like isometric exercises, weights, cycling, fast paced walking | |+ + +| Recommend healthy eating with foods from a variety of food groups. Encourage to | 2023-07-26 || eat more vegetables like kale, spinach, colorful vegetables and appropriate | || portion sizes, and few sugary snacks/drinks/sodas. | || Avoid high fructose corn syrup, drink at least 64 ounces of water a day. | |+ + +| UA | 2022-10-09 || URINE CX | || macrobid 100 mg bid x 5 days | || s/e of meds discussed with pt | |+ + +| refer to ER | 2022-10-09 || CT scan of head with and without contrast STAT | || ER precautions | || PT will f/u after ER visit | |+ + +| refer to ER | 2022-10-09 || CT scan of head with and without contrast STAT | || ER precautions | || PT will f/u after ER visit | |+ + +| blurry vision yesterday | 2022-10-09 || refer to ER | || CT scan of head with and without contrast STAT | || ER precautions | || PT will f/u after ER visit | |+ + +| Auto-Add by COVID19 Screen Import | 2023-01-23 |+ + +| strep test- negative | 2023-02-16 || recommend warm salt water gargles, throat lozenges, sprays prn | || acetaminophen prn | || soft diet, water with electrolyte replacement like gatorade zero | || RTO if symptoms do not improve | |+ + +| Refer to ENT | 2023-02-16 |+ + +| CBC, CMP | 2023-07-26 || Anticipatory guidance as discussed. Growth chart given. Routine well visits. | |+ + +[id number] of TreatmentLNCARE PLANTXTSFA|[id number] for patient [id number] Section NarrativeNARRATIVEFormatted C-CDA narrative textSShanthi Valentine [facility]2024-05-16T00:00:00 Michael Valentine [facility]"
--- NOTE | 2023-09-07 17:12 | RAD REPORT ---
EXAM DESCRIPTION: CT - Head Brain Wo Cont - 09/07/2023 4:55 pm CLINICAL HISTORY: Headache COMPARISON: August 14, 2023 TECHNIQUE: Computed axial tomography of the head was obtained. IV contrast was not requested. All CT scans are performed using dose optimization technique as appropriate and may include automated exposure control or mA/KV adjustment according to patient size. FINDINGS: An intracranial bleed is not seen The ventricles are normal in caliber No significant hypodense areas within the brain visualized No extra-axial fluid collection is noted. Fluid within the sinuses/ mastoids is not seen IMPRESSION: No acute intracranial abnormality is seen If patient's symptoms persist MRI of the brain would be recommended
[2023-09-07 17:29] LABS: Specific Gravity > 1.030 (1.005-1.030)
[2023-09-07] MEDS ORDERED: KETOROLAC 30 MG/ML INJ ONE (17:30)
[2023-09-07] MEDS ORDERED: dexAMETHasone 10 MG/ML VIAL ONE (17:30)
[2023-09-07] MEDS ORDERED: DIAZEPAM 2 MG TABLET ONE (17:31)
[2023-09-07] MEDS ORDERED: NA CHLORIDE 0.9% 500 ML ONE (17:32)
[2023-09-07 17:35] LABS: Specific Gravity > 1.030 (1.005-1.030); Sqamous Epithelial <5 /HPF (None Seen); Urine Bacteria <20 /HPF (<20); Urine Bilirubin NEGATIVE (Negative); Urine Blood Negative (Negative); Urine Clarity Turbid (Clear); Urine Color Yellow (Yellow); Urine Culture Reflex Order NOT NEEDED; Urine Glucose NEGATIVE (Negative); Urine Ketones NEGATIVE (Negative); Urine Microscopic Reflex YN ORDER UMIC; Urine Mucus 4+ /HPF (None Seen); Urine Nitrite NEGATIVE (Negative); Urine Protein 1+ (Negative); Urine RBC <5 /HPF (None Seen); Urine Urobilinogen 1+ (Normal); Urine WBC <5 /HPF (<5)
--- NOTE | 2023-09-07 17:40 | EDPHYS ---
Physician Documentation [facility] Name: Joan Wilson Age: 23 yrs Sex: Female : 2000 Arrival Date: 09/07/2023 Time: 16:21 Bed 17 Private MD: ED Physician Pavan Doyle HPI: 09/06 16:38 This 23 yrs old Female presents to ER via Unassigned with complaints of head rn pressure. 16:38 The patient complains of pain to the forehead, right latter day and left latter day. Associated rn signs and symptoms: Pertinent negatives: altered mental status, fever, neck stiffness, rash, vision changes, vision loss, vomiting, weakness, vertigo. Severity of symptoms: At its worst the pain was moderate, in the emergency department the pain is unchanged. The symptoms are alleviated by nothing. the symptoms are aggravated by nothing. The patient has experienced similar episodes in the past. Patient reported months of headache, bitemporally, feels like pressure. No associated fever. No trauma or injury. No focal neurological deficit. Patient reports nothing helps. Also having tingling all over her body and her face during episodes. Patient has anxiety and has been off of her anxiety and depression medication for some time. Just started back on her medication a week ago. No family history of aneurysm or brain tumor. This feels identical to previous headaches that she has had over the last few months.. Historical: - Allergies: 16:41 No Known Allergies; hb - Home Meds: 16:41 escitalopram oxalate oral [Active]; hb - PMHx: 16:41 Anxiety; Asthma; depressive disorder; Irritable bowel syndrome; Ovarian cyst; hb - PSHx: 16:41 Cyst removal; Ear Tubes (Cyst removal ); Tonsillectomy; hb - Immunization history:: Adult Immunizations up to date. - Infectious Disease History:: Denies. - Family history:: not pertinent. - Social history:: Smoking status: Patient denies any tobacco usage or history of. - Hospitalizations: : No recent hospitalization is reported. ROS: 16:38 Constitutional: Negative for fever, chills, and weight loss, Eyes: Negative for injury, rn pain, redness, and discharge, Neck: Negative for injury, pain, and swelling, Cardiovascular: Negative for chest pain, palpitations, and edema, Respiratory: Negative for shortness of breath, cough, wheezing, and pleuritic chest pain, Abdomen/GI: Negative for abdominal pain, nausea, vomiting, diarrhea, and constipation, Back: Negative for injury and pain, MS/Extremity: Negative for injury and deformity, Skin: Negative for injury, rash, and discoloration, Neuro: Positive for headache Exam: 16:38 Constitutional: This is a well developed, well nourished patient who is awake, alert, rn and in no acute distress. Ambulatory to room without difficulty or assistance. Patient is tearful and appears anxious Head/Face: Normocephalic, atraumatic. Eyes: Pupils equal round and reactive to light, extra-ocular motions intact. Neck: Neck supple, no masses, no meningismus Cardiovascular: Regular rate and rhythm. No pulse deficits. Respiratory: No increased work of breathing, no retractions or nasal flaring. Neuro: Awake and alert, GCS 15, oriented to person, place, time, and situation. Cranial nerves II-XII grossly intact. Motor strength 5/5 in all extremities. Sensory grossly intact. Cerebellar exam normal. Normal gait. Vital Signs: 16:40 BP 141 / 74; Pulse 91; Resp 16; Temp 97.7(TE); Pulse Ox 98% on R/A; Weight 112.49 kg; hb Height 5 ft. 8 in. ; Pain 5/10; 17:43 BP 123 / 71; Pulse 78; Resp 16; Pulse Ox 98% ; nj1 18:07 BP 119 / 53; Pulse 89; Resp 16; Pulse Ox 99% on R/A; nj1 16:40 Body Mass Index 37.71 (112.49 kg, 172.72 cm) hb 16:40 Pain Scale: Adult hb Alec Coma Score: 17:39 Eye Response: spontaneous(4). Motor Response: obeys commands(6). Verbal Response: rn oriented(5). Total: 15. MDM: 16:26 Patient medically screened. rn 17:39 Differential diagnosis: cluster headache, hypertensive headache, migraine, neoplasm, rn tension headache, vasomotor headache. Data reviewed: vital signs, nurses notes, lab test result(s), radiologic studies, CT scan, and as a result, I will discharge patient. Counseling: I had a detailed discussion with the patient and/or guardian regarding the historical points, exam findings, and any diagnostic results supporting the discharge/admit diagnosis, lab results, radiology results, the need for outpatient follow up, to return to the emergency department if symptoms worsen or persist or if there are any questions or concerns that arise at home. Response to treatment: the patient's symptoms have mildly improved after treatment, and as a result, I will discharge patient. Special discussion: I discussed with the patient/guardian in detail that at this point there is no indication for admission to the hospital. It is understood, however, that if the symptoms persist or worsen the patient needs to return immediately for re-evaluation. 17:39 ED course: Recommend neurology follow-up for persistent headaches. CT head negative for admitted attorneys abnormality.. 09/06 16:35 Order name: Test, Urine; Complete Time: 17:33 rn 09/06 16:35 Order name: Urinalysis w/ reflexes; Complete Time: 17:36 rn 09/06 16:32 Order name: CT Head Brain wo Cont; Complete Time: 17:19 rn 09/06 16:35 Order name: IV Start; Complete Time: 17:42 rn Administered Medications: 17:25 Not Given (Duplicate Order): [id number] mg IVP once; over 1 to 2 minutes rn 17:35 Drug: Diazepam PO 2 mg PO once Route: PO; nj1 18:06 Follow up: Response: No adverse reaction nj1 17:35 Drug: NS 0.9% IV 500 ml IV at bolus once Route: IV; Rate: bolus; Site: left antecubital;nj1 18:06 Follow up: Response: No adverse reaction; IV Status: Completed infusion; IV Intake: nj1 500ml 17:36 Drug: Ketorolac IVP 15 mg IVP once Route: IVP; Site: left antecubital; nj1 18:06 Follow up: Response: No adverse reaction nj1 17:37 Drug: Decadron - Dexamethasone IVP 10 mg IVP once Route: IVP; Site: left antecubital; nj1 18:06 Follow up: Response: No adverse reaction nj1 Disposition Summary: 09/07/23 17:40 Discharge Ordered Notes: Location: Home rn Problem: an ongoing problem rn Symptoms: have improved rn Condition: Stable rn Diagnosis - Headache rn - Anxiety disorder, unspecified rn Followup: rn - With: Julio Roblero MD - When: As needed - Reason: Recheck today's complaints, Re-evaluation by your physician Discharge Instructions: - Discharge Summary Sheet rn - General Headache Without Cause rn - Migraine Headache rn - Managing Anxiety, Adult rn Forms: - Medication Reconciliation Form rn - Antibiotic staffing rn - Prescription Opioid Use rn - Patient Portal Instructions rn - Leadership Thank You Letter rn Signatures: Dispatcher [employer] Pavan Rutherford MD MD rn Baxter, Heather, RN RN hb Jaco, Norma RN RN nj1
--- NOTE | 2023-09-07 17:40 | ER ---
Nurse's Notes [facility] Name: Joan Wilson Age: 23 yrs Sex: Female : 2000 Arrival Date: 09/07/2023 Time: 16:21 Bed 17 Private MD: Diagnosis: Headache;Anxiety disorder, unspecified Presentation: 09/06 16:40 Chief complaint: Headache x months. Coronavirus screen: At this time, the client does hb not indicate any symptoms associated with coronavirus-19. Ebola Screen: No symptoms or risks identified at this time. Initial Sepsis Screen: Does the patient meet any 2 criteria? No. Patient's initial sepsis screen is negative. Does the patient have a suspected source of infection? No. Patient's initial sepsis screen is negative. Risk Assessment: Do you want to hurt yourself or someone else? Patient reports no desire to harm self or others. Onset of symptoms is unknown. 16:40 Method Of Arrival: Ambulatory hb 16:40 Acuity: RHIANNA 3 hb Historical: - Allergies: 16:41 No Known Allergies; hb - Home Meds: 16:41 escitalopram oxalate oral [Active]; hb - PMHx: 16:41 Anxiety; Asthma; depressive disorder; Irritable bowel syndrome; Ovarian cyst; hb - PSHx: 16:41 Cyst removal; Ear Tubes (Cyst removal ); Tonsillectomy; hb - Immunization history:: Adult Immunizations up to date. - Infectious Disease History:: Denies. - Family history:: not pertinent. - Social history:: Smoking status: Patient denies any tobacco usage or history of. - Hospitalizations: : No recent hospitalization is reported. Screenin:44 [facility] ED Fall Risk Assessment (Adult) History of falling in the last 3 months, nj1 including since admission No falls in past 3 months (0 pts) Confusion or Disorientation No (0 pts) Intoxicated or Sedated No (0 pts) Impaired Gait No (0 pts) Mobility Assist Device Used No (0 pt) Altered Elimination No (0 pt) Score/Fall Risk Level 0 - 2 = Low Risk Oriented to surroundings, Maintained a safe environment, Hourly rounding (assess needs \T\ fall precautionary measures) done. Abuse screen: Denies threats or abuse. Denies injuries from another. Nutritional screening: No deficits noted. Tuberculosis screening: No symptoms or risk factors identified. Assessment: 16:38 Reassessment: Taken for CT. nj1 17:23 General: Appears in no apparent distress. comfortable, Behavior is calm, cooperative, nj1 appropriate for age. Pain: Denies pain. Neuro: Level of Consciousness is awake, alert, obeys commands, Oriented to person, place, time, situation, Reports numbness in head. Cardiovascular: Patient's skin is warm and dry. Respiratory: Airway is patent Respiratory effort is even, unlabored. 17:42 Reassessment: Patient appears in no apparent distress at this time. No changes from nj1 previously documented assessment. Patient and/or family updated on plan of care and expected duration. Pain level reassessed. Patient is alert, oriented x 3, equal unlabored respirations, skin warm/dry/pink. 17:43 Reassessment: DC on hold, IVF infusing. nj1 18:06 Reassessment: Patient appears in no apparent distress at this time. Patient is alert, nj1 oriented x 3, equal unlabored respirations, skin warm/dry/pink. Patient states feeling better. Patient states symptoms have improved. Vital Signs: 16:40 BP 141 / 74; Pulse 91; Resp 16; Temp 97.7(TE); Pulse Ox 98% on R/A; Weight 112.49 kg; hb Height 5 ft. 8 in. ; Pain 5/10; 17:43 BP 123 / 71; Pulse 78; Resp 16; Pulse Ox 98% ; nj1 18:07 BP 119 / 53; Pulse 89; Resp 16; Pulse Ox 99% on R/A; nj1 16:40 Body Mass Index 37.71 (112.49 kg, 172.72 cm) hb 16:40 Pain Scale: Adult hb Alec Coma Score: 17:39 Eye Response: spontaneous(4). Motor Response: obeys commands(6). Verbal Response: rn oriented(5). Total: 15. ED Course: 16:23 Patient arrived in ED. ra3 16:25 Pavan Doyle MD is Attending Physician. rn 16:37 Judith Sparks RN is Primary Nurse. nj1 16:40 Triage completed. hb 16:42 Arm band placed on. hb 16:45 Patient has correct armband on for positive identification. Call light in reach. Side nj1 rails up X 1. Adult w/ patient. Provided Education on: call light, fall precautions. 16:57 CT Head Brain wo Cont In Process Unspecified. EDMS 17:36 Inserted saline lock: 20 gauge in left antecubital area, using aseptic technique. kj2 17:40 Julio Roblero MD is Referral Physician. rn 18:09 No provider procedures requiring assistance completed. Patient did not have IV access nj1 during this emergency room visit. intact, bleeding controlled, Pressure dressing applied. Administered Medications: 17:25 Not Given (Duplicate Order): [id number] mg IVP once; over 1 to 2 minutes rn 17:35 Drug: Diazepam PO 2 mg PO once Route: PO; nj1 18:06 Follow up: Response: No adverse reaction nj1 17:35 Drug: NS 0.9% IV 500 ml IV at bolus once Route: IV; Rate: bolus; Site: left antecubital;nj1 18:06 Follow up: Response: No adverse reaction; IV Status: Completed infusion; IV Intake: nj1 500ml 17:36 Drug: Ketorolac IVP 15 mg IVP once Route: IVP; Site: left antecubital; nj1 18:06 Follow up: Response: No adverse reaction nj1 17:37 Drug: Decadron - Dexamethasone IVP 10 mg IVP once Route: IVP; Site: left antecubital; nj1 18:06 Follow up: Response: No adverse reaction nj1 Medication: 18:12 VIS not applicable for this client. nj1 Intake: 18:06 IV: 500ml; Total: 500ml. nj1 Outcome: 17:40 Discharge ordered by . rn 18:09 Discharged to home ambulatory, with family, nj1 18:09 Condition: stable 18:09 Discharge instructions given to patient, Instructed on discharge instructions, follow up and referral plans. Demonstrated understanding of instructions, follow-up care, 18:13 Patient left the ED. nj1 Signatures: Dispatcher [employer] EDMS Pavan Doyle MD MD rn Baxter, Heather, RN RN hb Jaco, Norma, RN RN nj1 Donna Ayala ra3 Alysa Rai RN RN kj2
[2023-09-07 18:18] VITALS: TEMP 97.7
[2023-09-07 18:36] VITALS: BP 119/53; O2SAT 99
== END 2023-09-07 18:13 | disposition home or self-care (01) ==
LOC: ER 16:21
DX: R51.9 Headache, unspecified (principal); F41.9 Anxiety disorder, unspecified
CPT/HCPCS: 96361; 81001; 81025; 70450; 96375; 96374; 99284; J1100; J7040